=== PATIENT | female | born 1940 | race Caucasian/White ===

== ENCOUNTER 2017-06-22 17:07 | Emergency (ER) | payer MEDICARE, OTHER, SELFPAY ==
[2017-06-22] VITALS (7 sets, daily range): BP systolic 156–164; BP diastolic 77–131; PULSE 71–98; RESP 18–24; TEMP 37.1; O2SAT 92–96; BMI 45.3
--- NOTE | 2017-06-22 17:54 | EKG12_ITS ---
Test Reason : SOB Blood Pressure : / mmHG Vent. Rate : 080 BPM Atrial Rate : 080 BPM P-R Int : 186 ms QRS Dur : 162 ms QT Int : 464 ms P-R-T Axes : 077 -35 107 degrees QTc Int : 535 ms Sinus rhythm with occasional Premature ventricular complexes Left axis deviation Left bundle branch block Abnormal ECG Confirmed by VICTOR MANUEL BILLINGS ([id number]), news assignment editor MARCELINO WILLETT ([id number]) on 06/26/2017 3:59:58 PM Referred By: DELLA Confirmed By:VICTOR MANUEL BILLINGS
[2017-06-22] MEDS: Ipratropium/Albuterol Sulfate 3 ML AMPUL.NEB INHALATION (18:05)
[2017-06-22] MEDS: Albuterol 2.5 MG/3 ML VIAL.NEB. INHALATION ×3 (18:05)
--- NOTE | 2017-06-22 18:35 | ED.DCSUM_ITS ---
- ER Visit Summary Date of Service: 06/22/17 Chief Complaint: COPD History of Present Illness: The patient is a 77 F with a history of COPD presenting with wheezing and cough for the past week. She saw her primary care physician and was prescribed Zithromax last week. She completed the last pill today. She is still coughing and having wheezing. She improved somewhat with her nebulizers but it has not completely resolved. She denies chest pain or lower extremity pain/swelling. Denies recent travel or immobilization. She has not been on steroids recently and has not been hospitalized recently. She denies chest pain or diaphoresis. Physical Examination: Vitals are within normal limits. Her pulse ox is 93 on room air. She does have diffuse wheezing in all lung oliveros but is not in distress. No clinical evidence of DVT. Normal mental status and neurologic examinations. Test Results: X-rays negative for infiltrate. Labs are within normal limits. Emergency Department Course and Treatment: Given duo nebs and IV site Medrol and feels much better. Pulse ox is in the high 90s on room air. She is not requiring oxygen even with ambulation. She is not dyspneic on ambulation. She wants to go home but feels that she would benefit from prednisone at this point. I agree. I will place her on 50 mg the prednisone for 5 days and she will follow-up with her doctor on Sunday. She will return if she is any worse over the weekend. Treatment Plan: Oral prednisone Disposition: Home stable condition Impression: Initial encounter acute COPD exacerbation This note was generated with [employer] dictation software. It may contain incorrect words, spelling, and punctuation that were not noted in review of the chart prior to signing ED Disposition - Plan for ED Patient: Chief Complaint: Shortness of Breath Diagnosis: COPD (chronic obstructive pulmonary disease) Instructions: ED COPD Flare Prescriptions: Prednisone 40 mg PO DAILY 5 Days #10 tablet Referrals: Chiara Zee MD [Primary Care Provider] - As soon as possible
[2017-06-22] MEDS: MethylPREDNISolone 125 MG/2 ML Vial IV (18:46)
--- NOTE | 2017-06-22 19:00 | RAD_ITS ---
STUDY: X-RAY CHEST REASON FOR EXAM: Female, 77 years old. Cough x1 week. TECHNIQUE: PA and lateral views of the chest. COMPARISON: October 04, 2016. FINDINGS: The lungs are hyperinflated. There are stable coarse appearing interstitial markings present. No new focal consolidation is seen. Sternal cerclage wires are present from a prior sternotomy. There is a prosthetic cardiac valve in place. Normal mediastinum and ghanshyam. Normal visualized pulmonary arteries. There is atherosclerotic calcification of the aortic arch with tortuosity. There are diffuse degenerative changes of the visualized thoracic spine. Normal visualized ribs, clavicles, and shoulders. There is no demonstrated abnormality of the visualized soft tissue structures of the upper abdomen. RAD/Chest PA and Lateral IMPRESSION: No acute cardiopulmonary process. Electronically Signed: Yolis Vegas MD at 19:34 EDT Tel , Service support ,
[2017-06-22 19:22] LABS: Absolute Lymphocyte Count 4.15 X10^3/ul (0.83-4.51); Absolute Neutrophil Count 7.3 X10^3/uL (2.0-7.7); Basophil# 0.03 X10^3/uL; Basophil% 0.2 % (0-1); Eosinophil# 0.13 X10^3/uL; Hematocrit 36.7 % (37-47); Lymphocyte # 4.15 X10^3/ul (4.0); Lymphocyte % 33.4 % (19-41); Mean Corp Hgb Conc 32.7 g/gl (32-36); Mean Corpuscular Hgb 28.5 pg (27.0-32.0); Mean Corpuscular Volume 87.2 fL (81-99); Mean Platelet Vol. 9.4 fl (6.2-12.0); Monocyte# 0.84 X10^3/uL; Monocyte% 6.8 % (0-10); Neutrophil # 7.26 X10^3/uL (2.7-7.7); Neutrophil % 58.4 % (47-70); Platelet Count 205 K/mm3 (150-450); RBC Distribution Width CV 14.4 % (11.6-14.6); RBC Distribution Width SD 45.4 fl (35.1-43.9); Red Blood Count 4.21 M/mm3 (4.2-5.4); White Blood Count 12.4 K/mm3 (4.4-11.0)
[2017-06-22 19:24] LABS: Anion Gap 6 (5-15); BUN 24 mg/dL (7-18); BUN/Creat Ratio 18.9 RATIO (10-20); Calcium,Total 8.9 mg/dL (8.5-10.1); Chloride 102 mmol/L (98-107); Creatinine, Serum 1.27 mg/dL (0.55-1.02); EST Glomerular Filtration Rate 44 mL/min (>60); Est Glom Filt Rate - Afr Amer 53 mL/min (>60); Estimated Creatinine Clearance 28.88 ml/min; Glucose 155 mg/dL (74-106); Potassium 3.7 mmol/L (3.5-5.1); Sodium Level 135 mmol/L (136-145)
[2017-06-22 19:30] LABS: POSITIVE COUNT NO; POSITIVE DIFFERENTIAL NO; POSITIVE MORPHOLOGY NO
--- NOTE | 2017-06-23 15:16 | ED.RN ---
Pt daughter called to verify if mother (pt) should take prednisone which was ordered here along with atb called in from family dr. Dr Rocha verified pt just finished Z-pack and advised pt could take another atb as long as is wasn't z-pack or doxycycline as doxy would not be beneficial for pt. The daughter, Janel, verbalized understanding,.
== END 2017-06-22 20:07 | disposition home or self-care (01) ==
PROVIDERS: Emergency Provider Emergency Medicine; Family Provider Family Medicine; PCP Family Medicine
DX: J44.1 Chronic obstructive pulmonary disease with (acute) exacerbation (principal); I25.10 Atherosclerotic heart disease of native coronary artery without angina pectoris; I25.2 Old myocardial infarction; E11.9 Type 2 diabetes mellitus without complications; I10 Essential (primary) hypertension; E78.00 Pure hypercholesterolemia, unspecified; G47.33 Obstructive sleep apnea (adult) (pediatric); Z79.51 Long term (current) use of inhaled steroids; Z79.82 Long term (current) use of aspirin; Z79.4 Long term (current) use of insulin; Z79.899 Other long term (current) drug therapy
CPT/HCPCS: 71046; 80048; 85025; 93005; 94640; 96361; 96374; 99283; J7030; J7040; A4216

== ENCOUNTER → 2017-09-25 16:31 | Outpatient (CLI) | payer MEDICARE, OTHER, SELFPAY ==
[2017-09-25 17:29] LABS: Hematocrit 35.8 % (37-47); Hemoglobin 11.7 g/dl (12.0-15.0); Mean Corp Hgb Conc 32.7 g/gl (32-36); Mean Corpuscular Volume 88.6 fL (81-99); Mean Platelet Vol. 9.7 fl (6.2-12.0); Platelet Count 211 K/mm3 (150-450); RBC Distribution Width CV 13.3 % (11.6-14.6); RBC Distribution Width SD 43.1 fl (35.1-43.9); Red Blood Count 4.04 M/mm3 (4.2-5.4); White Blood Count 8.5 K/mm3 (4.4-11.0)
[2017-09-25 17:34] LABS: Scan Indicated on CBC? Y/N NO
[2017-09-25 18:00] LABS: Albumin, Serum 3.5 g/dL (3.2-5.0); BUN 27 mg/dL (7-18); BUN/Creat Ratio 22.1 RATIO (10-20); Calcium,Total 8.9 mg/dL (8.5-10.1); Chloride 100 mmol/L (98-107); Creatinine, Serum 1.22 mg/dL (0.55-1.02); EST Glomerular Filtration Rate 46 mL/min (>60); Est Glom Filt Rate - Afr Amer 55 mL/min (>60); Glucose 195 mg/dL (74-106); Phosphorus 3.6 mg/dL (2.5-4.9); Potassium 4.5 mmol/L (3.5-5.1); Sodium Level 132 mmol/L (136-145)
[2017-09-25 18:03] LABS: Protein, Urine (Random) 17.9 mg/dL (<11.9); Protein:Creat Ratio 132 mg/g CRE (0-200)
[2017-09-26 08:33] LABS: Vitamin D,25 Hydroxy 48.1 ng/mL (29.95-100.01)
[2017-09-26 08:37] LABS: PTHIN 37.7 pg/mL (18.4-80.1)
== END ==
PROVIDERS: Family Provider Family Medicine; PCP Family Medicine; Visit Provider Internal Medicine Nephrology
DX: N18.3 Chronic kidney disease, stage 3 (moderate) (principal)
CPT/HCPCS: 36415; 80069; 82306; 82570; 83970; 84156; 85027

== ENCOUNTER → 2017-10-15 15:23 | Outpatient (CLI) | payer MEDICARE, OTHER, SELFPAY | PROVIDERS: Family Provider Family Medicine; PCP Family Medicine; Visit Provider Family Medicine | DX: S39.012A Strain of muscle, fascia and tendon of lower back, initial encounter (principal) | CPT/HCPCS: 72110 ==

== ENCOUNTER → 2017-10-25 18:36 | Outpatient (CLI) | payer MEDICARE, OTHER, SELFPAY | PROVIDERS: Family Provider Family Medicine; PCP Family Medicine; Visit Provider Nurse Practitioner Adult Health | DX: N30.21 Other chronic cystitis with hematuria (principal) | CPT/HCPCS: 87086; 87088; 87186 ==

== ENCOUNTER → 2017-12-20 16:12 | Outpatient (CLI) | payer MEDICARE, OTHER, SELFPAY | PROVIDERS: Family Provider Family Medicine; PCP Family Medicine; Referring Provider Nurse Practitioner Adult Health; Visit Provider Nurse Practitioner Adult Health | DX: R35.0 Frequency of micturition (principal) | CPT/HCPCS: 87086; 87088; 87186 ==

== ENCOUNTER 2018-03-12 12:59 | Outpatient (RCR) | payer MEDICARE, OTHER, SELFPAY ==
[2018-03-06 14:43] VITALS: BMI 44.0
--- NOTE | 2018-03-12 13:46 | HP.PTEVAL ---
Patient's Visit Information SARAH HEATH is a 78 year old F referred to Physical Therapy by Chiara Zee MD with a diagnosis of Gait Disturbance and Leg Weakness. Date of Evaluation: 03/12/18 Physical Therapist: Kathryn Diehl DPT - Visit Plan Frequency: 2x /Week Duration: 4 Weeks Plan: Focus on LE strength with improved balance and functional mobility. - Subjective Findings: Patient is starting to feel like she needs help- she needs to be able to walk. Patient reports that she has felt like this for a few months and has had a few minor falls. Has a stool that she uses in the kitchen that she uses to sit on but the kids took it away from her. Lives alone in the [facility]- has a loft that she does not use- just for storage-No stairs to get in. Has a tub shower- has a seat. Has help from daughter to take the trash out- started a new job and is working a lot so she has problems getting around. Goes to the store when its to cold or nasty outside. Does drive I and can go to the store when its nice outside. Does have pain in her back - more on the left side-fell on New Years- sliding out of the bed- and landed on her right ankle- but that is better now. Uses the walker outside of the home- does sometimes use a cane or walking stick inside the home. No N/T in the toes. Feels that her legs are getting weaker and she is unable to do more walking anymore. She feels that she is declining physically. Sleep- not disturbed. PMHx: COPD, DM, HTN, Heart issues Meds: see list - Objective Posture: FH, RS, Increased kyphosis. Gait: wide LUCITA with FWW- slow lia and was given verbal cues to maneuver walker. Balance: standing feet together: no LOB eyes closed: LOB required UE A from table and righting from PT, Tandem stance- can obtain with UE A but does not maintain. HR/TR: able in sitting. ROM: WFL. Strength: Ankle: 4+/5, Knee: 4+/5, Hip: 4-/5 throughout Core: poor. Special Test: sit to stand: 6 in 30 seconds with significant UE A. 6 sit to stands - Goals Goal 1:: Patient will be I with HEP and progression Goal Time Frame: 6-8 Weeks Goal 2:: Patient will ambulate >300 feet with a normalized gait pattern with LRD and no rest breaks. Goal Time Frame: 4-6 Weeks Goal 3:: Patient will perform 10 sit to stands in 30 seconds with mild UE A Goal Time Frame: 4-6 Weeks Goal 4:: Patient will improve strength to 4/5 throughout LE Goal Time Frame: 4-6 Weeks - Rehabilitation Potential Physical Therapy Diagnosis: Patient persents with hypomobility- she has decreased strength and muscular endurance leading to abnormal gait, decreased balance and inability to perform ADL's. Rehabilitation Potential: Fair - Anticipated Interventions Patient/Client Instruction: Educate patient on: Benefits of Fitness Program Therapeutic Exercise to Include: Strength training, Endurance training, Balance training, Agility training, Body mechanics, Postural training, Flexibilty training, Gait and locomotor training, Dynamic Lumbar Stabilization For the Purpose of:: To improve muscle performance and motor function Thank you for the opportunity to evaluate your patient. For Medicare and Medicare HMO plans, please review the plan of care and approve it. It will need to be FAXED BACK to us at [phone] for Medicare purposes. For Medicare only, by signing this I certify the plan of care. Please let me know if there are questions or concerns regarding this plan of care. Physician Signature: Date:
--- NOTE | 2018-05-30 07:57 | HP.PT.NRP ---
HP - Discharge Summary (1) - Patient Information SARAH HEATH was seen in my office for initial evaluation on 03/12/18. The following Plan of Care was established for this patient: Initial Frequency: 2x /Week Initial Duration: 4 Weeks - Anticipated Interventions Patient/Client Instruction: Educate patient on: Benefits of Fitness Program Therapeutic Exercise to Include: Strength training, Endurance training, Balance training, Agility training, Body mechanics, Postural training, Flexibilty training, Gait and locomotor training, Dynamic Lumbar Stabilization For the Purpose of:: To improve muscle performance and motor function This patient was last seen in our office . Pertinent comments regarding their Physical therapy will appear below: Patient has not attended PT in over 60 days- is appropriate for d/c and return to MD for further evaluation At this point I will be discontinuing this patient from physical therapy. I would be happy to see this patient again in the future if found appropriate by the physician. Thank you! Kathryn Diehl DPT
== END 2018-03-12 19:00 | disposition home or self-care (01) ==
LOC: PT 12:59
PROVIDERS: Family Provider Family Medicine; PCP Family Medicine; Referring Provider Family Medicine; Visit Provider Family Medicine
DX: R26.89 Other abnormalities of gait and mobility (principal); R29.898 Other symptoms and signs involving the musculoskeletal system
CPT/HCPCS: 97162

== ENCOUNTER → 2018-03-21 06:43 | Outpatient (CLI) | payer MEDICARE, OTHER, SELFPAY ==
[2018-03-06 14:43] VITALS: BMI 44.0
--- NOTE | 2018-03-21 06:47 | ECHOCS_ITS ---
Reason For Study: DYSPNEA/SOB Procedure This was a 2D Doppler, Color Flow transthoracic echocardiogram. The study was technically difficult. Contrast injection was performed. Exam performed in department. Left Ventricle Normal LV size. Segmental dysfunction with preserved ejection fraction (see wall motion). The estimated ejection fraction is 55 %. Septal motion consistent with IVCD. There is evidence of diastolic dysfunction. Infero-Basal: Hypokinetic. Mid-Inferior: Hypokinetic. Mid-inferoseptal : Hypokinetic. Mid-anteroseptal : Hypokinetic. Right Ventricle Normal RV size. Normal systolic function. Atria The left atrium is moderately enlarged. Normal right atrium. No doppler evidence for ASD. Mitral Valve There is moderate mitral annular calcification. Extension of the mitral annular calcification onto the mitral valve leaflets. Mild (1+) mitral valve insufficiency. Tricuspid Valve Normal tricuspid valve. Mild tricuspid valve insufficiency. Right ventricular systolic pressure estimated to be 45 mmHg. Aortic Valve Stable appearing bioprosthetic aortic valve apparatus. Pulmonic Valve The pulmonic valve is not well visualized. Great Vessels Normal sized aortic root. Pericardium/Pleural No pericardial effusion. Medication Diluted definity 5ml given slow IV push to enhance endocardial definition. MMode/2D Measurements & Calculations LVIDd: 4.7 cm IVSd: 1.3 cm LVOT diam: 2.0 cm LVIDs: 3.1 cm LVPWd: 1.2 cm RVDd: 3.0 cm FS: 34.4 % LVOT area: 3.0 cm2 Ao root diam: 3.3 cm LAV(MOD-bp): 60.7 ml LVAd ap4: 29.8 cm2 LAV(MOD-bp) Indexed: 30.1 ml/m2 EDV(MOD-sp4): 101.5 ml LAV(MOD-sp2): 71.4 ml EDV(sp4-el): 103.7 ml LAV(MOD-sp4): 49.6 ml LVAs ap4: 18.6 cm2 ESV(MOD-sp4): 46.3 ml ESV(sp4-el): 46.4 ml EF(MOD-sp4): 54.4 % EF(sp4-el): 55.3 % SV(MOD-sp4): 55.2 ml SV(sp4-el): 57.3 ml LA A4 area: 18.9 cm2 LA dimension(2D): 4.5 cm RA A4 area: 11.2 cm2 Time Measurements MV dec time: 0.29 sec Doppler Measurements & Calculations MV E max alfred: 141.7 cm/sec Lat Peak E' Alfred: 7.4 cm/sec Med Peak E' Alfred: 4.1 cm/sec MV A max alfred: 177.1 cm/sec E/E' lat: 19.2 E/E' med: 34.3 MV E/A: 0.80 MV V2 max: 189.8 cm/sec MV P1/2t max alfred: 142.6 cm/sec Ao V2 max: 220.0 cm/sec MV max P.4 mmHg MV P1/2t: 104.5 msec Ao max P.4 mmHg MV V2 mean: 125.8 cm/sec MV dec slope: 399.4 cm/sec2 Ao V2 mean: 167.5 cm/sec MV mean P.9 mmHg MVA(P1/2t): 2.1 cm2 Ao mean P.3 mmHg MV V2 VTI: 59.3 cm Ao V2 VTI: 54.1 cm MVA(VTI): 1.3 cm2 KARLENE(I,D): 1.5 cm2 KARLENE(V,D): 1.4 cm2 LV V1 max: 103.5 cm/sec SV(LVOT): 79.4 ml PA V2 max: 137.5 cm/sec LV V1 max P.3 mmHg LV V1 mean P.7 mmHg LV V1 mean: 78.5 cm/sec LV V1 VTI: 26.3 cm TR max alfred: 325.5 cm/sec MV P1/2t-pr_phl: 103.3 msec TR max P.4 mmHg Interpretation Summary The study was technically difficult. Contrast injection was performed. Segmental dysfunction with preserved ejection fraction (see wall motion). The estimated ejection fraction is 55 %. Septal motion consistent with IVCD. The left atrium is moderately enlarged. There is moderate mitral annular calcification. Extension of the mitral annular calcification onto the mitral valve leaflets. Mild (1+) mitral valve insufficiency. Mild tricuspid valve insufficiency. Stable appearing bioprosthetic aortic valve apparatus. Right ventricular systolic pressure estimated to be 45 mmHg. There is evidence of diastolic dysfunction. Ordering Physician: Emanuel Vela Referring Physician: BLANKA CROTEZ Performed By: Ada Walker RDCS
--- NOTE | 2018-03-21 19:41 | STRESSREP_ITS ---
Stress Test Report Date: 03/21/2018 Procedure: Pharmacologic stress nuclear imaging study Indications: Shortness of breath/dyspnea; CAD; CAD; status post transcatheter aortic valve replacement: abnormal ECG; left bundle branch block pattern Consent: Per the patient Procedure: The patient underwent pharmacologic (Regadenoson) evaluation with a peak heart rate of 83 beats per minute (57 predicted maximal heart rate) and a peak blood pressure of 172/70 mmHg. The baseline ECG demonstrated Sinus rhythm with a left bundle branch block pattern . The peak pharmacologic ECG demonstrated a continued left bundle bundle branch block pattern with no obvious ECG changes . There were no cardiac dysrhythmias pretest, during pharmacologic infusion, or recovery. There was no complaint of chest discomfort during pharmacologic infusion or recovery. The examination was discontinued secondary to completion of protocol. Impression: 1. Pharmacologic (Regadenoson) evaluation 2. Peak pharmacologic ECG with A continued left bundle branch block pattern with no obvious ECG changes . 3. There were no cardiac dysrhythmias pretest, during pharmacologic infusion, or recovery. 4. Nuclear images pending Myocardial perfusion imaging study: Technique: The patient was injected with 14.5 millicuries of technetium 99m Cardiolite and subsequently rest SPECT Cardiolite nuclear imaging was obtained in the horizontal long, vertical long, and short axis views. The patient underwent pharmacologic (Regadenoson) evaluation with a peak heart rate of 83 beats per minute (57 % percent predicted maximal heart rate) and a peak blood pressure of 172/70 mmHg. The patient was injected with 44.8 millicuries of technetium 99m Cardiolite and subsequently stress SPECT Cardiolite nuclear imaging was obtained in the horizontal long, vertical long, and short axis views. A gated Cardiolite study at peak stress was obtained. Interpretation: Rest and stress SPECT Cardiolite nuclear imaging status post realignment, normalization, and attenuation correction demonstrate At rest the appearance of extra cardiac/gastrointestinal tracer uptake near the inferior segments as well as an area of diminished tracer uptake in the distal inferior/inferoapical segments. Status post stress there is notation of continued diminished tracer uptake in portions of the distal inferior/inferoapical segments without significant change as well as an area of subtle diminished tracer uptake in the mid anterior segments. . There is end systolic thickening and brightening. The gated Cardiolite study demonstrates myocardial thickening and inward wall motion. The reported LVEF is 53 %. Impression: 1. Rest and stress SPECT cardiac nuclear imaging demonstrate myocardial perfusion changes potentially compatible with an area of soft tissue attenuation/artifact and/or the effects of gastrointestinal tracer uptake subtraction although an area of previous myocardial injury/infarction involving portions of the distal inferior and inferoapical segments cannot necessarily be excluded, as well as, an area of subtle diminished tracer uptake in the mid anterior segments which may be compatible shifting soft tissue attenuation/artifact although an area of stress induced myocardial ischemia cannot necessarily be excluded. . 2. The gated Cardiolite study reports an LVEF of 53 %. This note was generated with [employer] software. It may contain incorrect words, spelling, and punctuation that were not noted in checking the note before signing.
== END ==
PROVIDERS: Family Provider Family Medicine; PCP Family Medicine; Referring Provider Internal Medicine Cardiovascular Disease; Visit Provider Internal Medicine Cardiovascular Disease
DX: I25.810 Atherosclerosis of coronary artery bypass graft(s) without angina pectoris (principal); Z95.1 Presence of aortocoronary bypass graft
CPT/HCPCS: 78452; 93017; 93306; A9500; Q9957; A4216; C8929; J2785

== ENCOUNTER → 2018-03-26 15:07 | Outpatient (CLI) | payer MEDICARE, OTHER, SELFPAY ==
[2018-03-06 14:43] VITALS: BMI 44.0
[2018-03-26 16:38] LABS: Anion Gap 11 (5-15); BUN 16 mg/dL (7-18); BUN/Creat Ratio 14.4 RATIO (10-20); Calcium,Total 9.1 mg/dL (8.5-10.1); Chloride 101 mmol/L (98-107); Creatinine, Serum 1.11 mg/dL (0.55-1.02); EST Glomerular Filtration Rate 51 mL/min (>60); Est Glom Filt Rate - Afr Amer 61 mL/min (>60); Glucose 176 mg/dL (74-106); Sodium Level 137 mmol/L (136-145)
== END ==
PROVIDERS: Family Provider Family Medicine; PCP Family Medicine; Referring Provider Internal Medicine Cardiovascular Disease; Visit Provider Internal Medicine Cardiovascular Disease
DX: I25.810 Atherosclerosis of coronary artery bypass graft(s) without angina pectoris (principal); R06.00 Dyspnea, unspecified; Z95.1 Presence of aortocoronary bypass graft; Z95.2 Presence of prosthetic heart valve; Z95.4 Presence of other heart-valve replacement
CPT/HCPCS: 36415; 80048

== ENCOUNTER → 2018-04-23 13:18 | Outpatient (CLI) | payer MEDICARE, OTHER, SELFPAY ==
[2018-03-06 14:43] VITALS: BMI 44.0
--- NOTE | 2018-04-23 13:20 | STEWCON_ITS ---
Reason For Study: DYSPNEA/SOB Stress Results Protocol: Dobutamine Stress Echocardiogram Maximum Predicted HR: 144 bpm Target HR: 122 bpm % Maximum Predicted HR: 109 % DurationHeart Rate Stage (mm:ss) (bpm) BP Comment BASELINE 65 176/91DILUTED DEFINITY 5 ML USED DURING STRESS DSE- 10 MCG 6:30 157 126/75 RECOVERY 85 185/63ADVISED TO TAKE BP MEDS WHEN GOES HOME Stress Duration: 6:30 mm:ss Maximum Stress HR: 157 bpm Baseline Echocardiogram Findings Stress Echo Wall motion Data Resting WM Intermediate WM Stress WM Resting Wall Motion Wall Motion Int. Wall Motion Stress All segments Normal. All segments Hyperkinetic. All segments Hyperkinetic. Ejection Fraction 55 %. Ejection Fraction 60 %. Ejection Fraction 65 %. Stress Results Arrhythmias: Occasional PACs / repetative PACs during infusion and recovery and occasional PVCs during recovery Stopped secondary to: Target heart rate achieved. EKG Data Baseline ECG: NSR; LBBB. Peak pharmacologic ECG: no obvious ECG changes. Symptoms with Stress No c/o chest discomfort during pharmacologic infusion / recovery. Interpretation Summary Technically difficult study Contrast injection performed Negative (adequate) Dobutamine Stress Echocardiogram Comment: Dobutamine stress echocardiogram results based upon viewing and interpreting both 2D echocardiographic images during live acquisition as well as digital frame grabbed images. Ordering Physician: Dane^Emanuel^^^ Referring Physician: Emanuel Vela Performed By: Ada Walker, JONI
== END ==
PROVIDERS: Family Provider Family Medicine; PCP Family Medicine; Referring Provider Internal Medicine Cardiovascular Disease; Visit Provider Internal Medicine Cardiovascular Disease
DX: I25.810 Atherosclerosis of coronary artery bypass graft(s) without angina pectoris (principal); I44.7 Left bundle-branch block, unspecified; Z95.1 Presence of aortocoronary bypass graft; Z95.2 Presence of prosthetic heart valve
CPT/HCPCS: 93017; 93350; J7040; Q9957; A4216; C8928

== ENCOUNTER → 2018-09-26 | Outpatient (CLI) | payer MEDICARE, OTHER, SELFPAY ==
[2018-09-26 13:16] VITALS: BMI 43.6
[2018-09-26 15:09] LABS: Hematocrit 36.2 % (37-47); Mean Corp Hgb Conc 33.1 g/dL (32-36); Mean Corpuscular Hgb 29.4 pg (27.0-32.0); Mean Corpuscular Volume 88.7 fL (81-99); Mean Platelet Vol. 9.6 fl (6.2-12.0); Platelet Count 246 K/mm3 (150-450); RBC Distribution Width CV 14.1 % (11.6-14.6); RBC Distribution Width SD 45.1 fl (35.1-43.9); Red Blood Count 4.08 M/mm3 (4.2-5.4); White Blood Count 11.1 K/mm3 (4.4-11.0)
[2018-09-26 15:29] LABS: Albumin, Serum 3.8 g/dL (3.2-5.0); BUN 22 mg/dL (7-18); BUN/Creat Ratio 20.8 RATIO (10-20); Calcium,Total 9.6 mg/dL (8.5-10.1); Chloride 96 mmol/L (98-107); Creatinine, Serum 1.06 mg/dL (0.55-1.02); EST Glomerular Filtration Rate 54 mL/min (>60); Est Glom Filt Rate - Afr Amer 65 mL/min (>60); Glucose 81 mg/dL (74-106); Phosphorus 4.2 mg/dL (2.5-4.9); Potassium 4.3 mmol/L (3.5-5.1); Sodium Level 130 mmol/L (136-145)
[2018-09-26 18:01] LABS: Protein, Urine (Random) 8.6 mg/dL (<11.9); Protein:Creat Ratio 369 mg/g CRE (0-200)
[2018-09-27 09:58] LABS: PTHIN 45.1 pg/mL (18.4-80.1)
== END | disposition home or self-care (01) ==
LOC: LAB 14:30
PROVIDERS: Family Provider Family Medicine; PCP Family Medicine; Referring Provider Internal Medicine Nephrology; Visit Provider Internal Medicine Nephrology
DX: N18.3 Chronic kidney disease, stage 3 (moderate) (principal)
CPT/HCPCS: 36415; 80069; 82306; 82570; 83970; 84156; 85027

== ENCOUNTER → 2018-10-02 12:37 | Outpatient (CLI) | payer MEDICARE, OTHER, SELFPAY ==
[2018-09-26 13:16] VITALS: BMI 43.6
[2018-10-02 13:44] LABS: Color, Urine Yellow (Yellow); Glucose, Dipstick Normal (Normal); Ketone-Dipstick Negative (Negative); Leukocyte Esterase-Dipstick 500 /ul (Negative); Nitrite-Dipstick Negative (Negative); Occult Blood-Urine Negative /ul (Negative); Protein-Dipstick Negative (Negative); Urine Bilirubin Dipstick Negative (Negative); Urine Clarity Sl. Cloudy (Clear); Urine Urobilinogen Normal (Normal); Urine pH 6.5 (5.0 - 8.0)
== END ==
PROVIDERS: Family Provider Family Medicine; PCP Family Medicine; Referring Provider Internal Medicine Nephrology; Visit Provider Internal Medicine Nephrology
DX: N39.0 Urinary tract infection, site not specified (principal)
CPT/HCPCS: 81002; 87086; 87088; 87186

== ENCOUNTER → 2018-10-08 14:13 | Outpatient (CLI) | payer MEDICARE, OTHER, SELFPAY ==
[2018-09-26 13:16] VITALS: BMI 43.6
--- NOTE | 2018-10-08 14:15 | US_ITS ---
STUDY: RENAL ULTRASOUND - COMPLETE REASON FOR EXAM: Female, 78 years old. Stage III chronic kidney disease. Left nephrectomy. TECHNIQUE: Ultrasound evaluation of the kidneys was performed with real-time and static astorga-scale imaging. COMPARISON: July 19, 2016. FINDINGS: RIGHT KIDNEY: Normal location of the right kidney, which is normal in size. The right kidney measures 11.7 cm. There is a normal cortex of the right kidney. The renal cortex measures 1.5 cm. There is no right renal mass or cyst. There are no right renal calculi. There is no right hydronephrosis. DISTAL RIGHT URETER: There is non-visualization of the distal right ureter. There is no demonstrated right ureterovesical junction calculus. There is no demonstrated right ureteral jet. LEFT KIDNEY: Surgically absent. DISTAL LEFT URETER: There is non-visualization of the distal left ureter. There is no demonstrated left ureterovesical junction calculus. There is no demonstrated left ureteral jet. BLADDER: The distended urinary bladder has a volume of 371 ml. There is a normal wall thickness of the distended urinary bladder. There is no demonstrated mass within the urinary bladder. There are no demonstrated bladder calculi. US/Kidney and Bladder IMPRESSION: Normal ultrasound of the right kidney and urinary bladder. Electronically Signed: Jasvir Curtis DO at 21:40 EDT Tel [phone], Service support ,
== END ==
PROVIDERS: Family Provider Family Medicine; PCP Family Medicine; Referring Provider Internal Medicine Nephrology; Visit Provider Internal Medicine Nephrology
DX: N18.3 Chronic kidney disease, stage 3 (moderate) (principal)
CPT/HCPCS: 76770

== ENCOUNTER → 2019-09-25 | Outpatient (CLI) | payer MEDICARE, OTHER, SELFPAY ==
[2019-04-08 14:17] VITALS: BMI 43.4
[2019-09-25 16:00] LABS: Hematocrit 34.8 % (37-47); Hemoglobin 11.3 g/dL (12.0-15.0); Mean Corp Hgb Conc 32.5 g/dL (32-36); Mean Corpuscular Hgb 28.2 pg (27.0-32.0); Mean Corpuscular Volume 86.8 fL (81-99); Mean Platelet Vol. 9.7 fl (6.2-12.0); Platelet Count 259 K/mm3 (150-450); RBC Distribution Width CV 14.8 % (11.6-14.6); RBC Distribution Width SD 47.1 fl (35.1-43.9); Red Blood Count 4.01 M/mm3 (4.2-5.4); White Blood Count 9.8 K/mm3 (4.4-11.0)
[2019-09-25 16:41] LABS: Protein, Urine (Random) 9.9 mg/dL (<11.9); Protein:Creat Ratio 284 mg/g CRE (0-200)
[2019-09-25 16:42] LABS: Albumin, Serum 3.5 g/dL (3.2-5.0); BUN 18 mg/dL (7-18); Calcium,Total 8.9 mg/dL (8.5-10.1); Chloride 103 mmol/L (98-107); EST Glomerular Filtration Rate 57 mL/min (>60); Est Glom Filt Rate - Afr Amer 69 mL/min (>60); Glucose 95 mg/dL (74-106); Phosphorus 3.8 mg/dL (2.5-4.9); Potassium 4.4 mmol/L (3.5-5.1); Sodium Level 134 mmol/L (136-145)
[2019-09-25 16:44] LABS: Vitamin D,25 Hydroxy 83.1 ng/mL
== END | disposition home or self-care (01) ==
LOC: LAB 15:14
PROVIDERS: PCP Family Medicine; Referring Provider Internal Medicine Nephrology; Visit Provider Internal Medicine Nephrology
DX: N18.3 Chronic kidney disease, stage 3 (moderate) (principal)
CPT/HCPCS: 36415; 80069; 82306; 82570; 83970; 84156; 85027

== ENCOUNTER → 2019-10-09 | Outpatient (CLI) | payer MEDICARE, OTHER, SELFPAY ==
[2018-11-22 14:00] VITALS: BMI 43.6
[2019-04-08 14:17] VITALS: BMI 43.4
--- NOTE | 2019-10-10 10:20 | PFT ---
INTRODUCTION: The patient is a 79-year-old female that presents for pulmonary function studies secondary to a diagnosis of COPD. Respiratory therapy reports good patient effort. Bronchodilators were used during testing. INTERPRETATION: Forced expiration spirometry demonstrates no evidence of a large airways obstructive ventilatory defect. There was a significant response to aerosolized bronchodilators, based upon change noted in FVC. Spirograms are of good quality and plateau normally. Body plethysmography was performed and reveals a decreased TLC to 3.5 L, 81% of predicted, indicative of a mild restrictive ventilatory impairment. Diffusing capacity by single breath CO is reduced at 40% of predicted. IMPRESSION: Mild restrictive ventilatory impairment with disproportionate reduction in diffusing capacity. A significant bronchodilator response was noted.
== END | disposition home or self-care (01) ==
LOC: PSN 13:21
PROVIDERS: Family Provider Family Medicine; PCP Family Medicine; Referring Provider Nurse Practitioner Acute Care; Visit Provider Nurse Practitioner Acute Care
DX: J44.9 Chronic obstructive pulmonary disease, unspecified (principal)
CPT/HCPCS: 94060; 94726; 94729

== ENCOUNTER → 2019-10-15 | Outpatient (CLI) | payer MEDICARE, OTHER, SELFPAY ==
[2018-11-22 14:00] VITALS: BMI 43.6
[2019-04-08 14:17] VITALS: BMI 43.4
[2019-10-15 13:45] VITALS: PULSE 67; PULSE 70; PULSE 73; PULSE 76; PULSE 79; PULSE 84; PULSE 86; O2SAT 84; O2SAT 89; O2SAT 91; O2SAT 92; O2SAT 96
--- NOTE | 2019-10-15 13:47 | CPS ---
Patient started testing on room air. SpO2 84% right before the 2nd minute. Placed patient on 2 lpm O2, SpO2 recovered to 94%. Patient walked the rest of the test with 2 lpm O2.
--- NOTE | 2019-10-16 06:47 | PCM.PSN.6M ---
PSN 6 Minute Walk Test - 6 Minute Walk Test 6 Minute Walk Test: 6 Minute Walk Test PSN:6-Minute Walk Test Start: 10/15/19 13:45 Freq: Status: Active Protocol: RESP.6MINW Document 10/15/19 13:45 MARI (Rec: 10/15/19 13:48 MARI [id number]) 6 Minute Walk Test Date Performed 10/15/19 Time Performed 13:30 Height 5 ft 1 in Weight: 104.326 kg Weight in Pounds 230.[address]: David Banegas Assistive device used: Walker Pre-test Oxygen Delivery Method Room Air Pulse Ox (%) 92 Pulse Rate (60-100 beats/min) 67 Dyspnea Shanique Scale (0-10) 0 Exertion Shanique Scale (6-20) 6 1st minute Oxygen Delivery Method Room Air Pulse Ox (%) 91 Pulse Rate (60-100 beats/min) 70 2nd minute Oxygen Delivery Method Room Air Pulse Ox (%) 84 Pulse Rate (60-100 beats/min) 73 3rd minute Oxygen Flow Rate (L/min) (L/min) 2 Oxygen Delivery Method Nasal Cannula Pulse Ox (%) 91 Pulse Rate (60-100 beats/min) 73 4th minute Oxygen Flow Rate (L/min) (L/min) 2 Oxygen Delivery Method Nasal Cannula Pulse Ox (%) 89 Pulse Rate (60-100 beats/min) 79 5th minute Oxygen Flow Rate (L/min) (L/min) 2 Oxygen Delivery Method Nasal Cannula Pulse Ox (%) 91 Pulse Rate (60-100 beats/min) 84 6th minute Oxygen Flow Rate (L/min) (L/min) 2 Oxygen Delivery Method Nasal Cannula Pulse Ox (%) 91 Pulse Rate (60-100 beats/min) 86 Dyspnea Shanique Scale (0-10) 4 Exertion Shanique Scale (6-20) 14 Post-test Oxygen Flow Rate (L/min) (L/min) 2 Oxygen Delivery Method Nasal Cannula Pulse Ox (%) 96 Pulse Rate (60-100 beats/min) 76 Full Laps Walked 8 Partial Lap, Number of Tiles Walked 10 Total Distance Walked (ft) 482 10/15/19 13:47 Cardiopulmonary Services by Carmelina Moreno Patient started testing on room air. SpO2 84% right before the 2nd minute. Placed patient on 2 lpm O2, SpO2 recovered to 94%. Patient walked the rest of the test with 2 lpm O2. Initialized on 10/15/19 13:47 - END OF NOTE - Interpretation Interpretation: The patient was noted to be 92% on room air. The patient then started walking with the assistance of a walker and desaturated to 84% in the second minute. Patient was placed on 2 L nasal cannula with improvement to 94%. The patient was able to finish ambulation through the 6 minutes on 2 L. In total, the patient traveled 482 feet over the course of 6 minutes on room air with the assistance of a walker and one break. These findings are consistent with a respiratory limitation exercise tolerance. No significant tachycardia was noted. - Recommendations Recommendations: Patient requires no supplemental oxygen at rest, but should be using 2 L nasal cannula with any exertion.
== END | disposition home or self-care (01) ==
LOC: PSN 13:12
PROVIDERS: Family Provider Family Medicine; PCP Family Medicine; Referring Provider Nurse Practitioner Acute Care; Visit Provider Nurse Practitioner Acute Care
DX: J44.9 Chronic obstructive pulmonary disease, unspecified (principal)
CPT/HCPCS: 94618

== ENCOUNTER → 2019-10-17 | Outpatient (CLI) | payer MEDICARE, OTHER, SELFPAY ==
[2019-04-08 14:17] VITALS: BMI 43.4
[2019-10-17 17:28] LABS: Absolute Lymphocyte Count 1.34 X10^3/uL (0.83-4.51); Absolute Neutrophil Count 5.4 X10^3/uL (2.0-7.7); Basophil# 0.06 X10^3/uL; Basophil% 0.8 % (0-1); Eosinophil# 0.03 X10^3/uL; Eosinophils% 0.4 % (0-5); Hematocrit 34.6 % (37-47); Hemoglobin 10.8 g/dL (12.0-15.0); Lymphocyte # 1.34 X10^3/ul (4.0); Lymphocyte % 17.6 % (19-41); Mean Corp Hgb Conc 31.2 g/dL (32-36); Mean Corpuscular Hgb 27.9 pg (27.0-32.0); Mean Corpuscular Volume 89.4 fL (81-99); Mean Platelet Vol. 9.7 fl (6.2-12.0); Monocyte# 0.74 X10^3/uL; Monocyte% 9.7 % (0-10); NRBC Flagged by Analyzer 0 % (0-5); Neutrophil # 5.44 X10^3/uL (2.7-7.7); Neutrophil % 71.2 % (47-70); Platelet Count 248 K/mm3 (150-450); RBC Distribution Width CV 14.8 % (11.6-14.6); RBC Distribution Width SD 47.9 fl (35.1-43.9); Red Blood Count 3.87 M/mm3 (4.2-5.4); White Blood Count 7.6 K/mm3 (4.4-11.0)
[2019-10-17 18:01] LABS: Thyroid Stim Hormone (TSH) 3.79 uIU/mL (0.358-3.74)
== END | disposition home or self-care (01) ==
LOC: MFPLAB 15:52
PROVIDERS: PCP Family Medicine; Referring Provider Family Medicine; Visit Provider Family Medicine
DX: R60.9 Edema, unspecified (principal)
CPT/HCPCS: 36415; 84443; 85025

== ENCOUNTER 2020-02-26 14:28 | Inpatient (IN) | payer MEDICARE, OTHER, SELFPAY ==
[2020-02-23 14:33] VITALS: BMI 44.4
[2020-02-26] VITALS (16 sets, daily range): BP systolic 144–193; BP diastolic 66–96; PULSE 75–97; RESP 17–26; TEMP 36.6–37.2; O2SAT 96–99; BMI 44.9; BMI 42.2
--- NOTE | 2020-02-26 15:01 | ED.DCSUM_ITS ---
- ER Visit Summary Date of Service: 02/26/20 Chief Complaint: Shortness of breath History of Present Illness: The patient is a [address] Zee and Dr. Banegas. She reports she has shortness of breath that began approximately 1 month ago. Severe at worst mild currently. Is worsened by exertion or laying flat. She reports that she slept with 3 pillows last night. She is used her oxygen albuterol with minimal relief. Patient reports that she has a cough that is occasionally productive of beige sputum without blood. She denies any fever, chills, chest pain. She denies any sick contacts. She does wear a mask. Patient reports that she saw the nurse practitioner for Dr. Banegas 2 days ago and was prescribed prednisone. She took her first dose today. She has not started the doxycycline or Tessalon Perles yet. Physical Examination: Vitals: 98.0, 193/96, 80, 24, 97% on 2 L nasal cannula which is her home O2. General: Well-nourished and well-developed. Head: Normocephalic atraumatic. Neck: Supple, no lymphadenopathy. No JVD. Nontender. Cardiovascular: Regular rate and rhythm. 2 out of 6 systolic murmur. Respiratory: No respiratory distress. Clear to auscultation bilaterally. Abdominal: Soft, nontender, nondistended, normal bowel sounds. No guarding, r ebound, or peritoneal signs. Back: Nontender. Extremities: Nontender, no edema. Skin: Normal color, no rash. Neurologic: Alert and oriented ?3. Cranial nerves II through XII are intact. Normal strength and sensation. Psych: Anxious. Test Results: EKG is sinus at 78 with a left bundle branch block. Is unchanged from 2018. Initial troponin 0 0.213. Lactic acid is 1.5. COVID-19 rapid antigen is negative. Chem-7 shows a sodium 133 and glucose 140. CBC shows a white count of 13.4 (took a dose of prednisone this morning), H&H 10.4 and 31.5, second neutrophils 89, lymphocytes of 6. Chest x-ray shows CHF in my opinion. The radiologist did not read this yet. Emergency Department Course and Treatment: Patient does not have any wheezing type at this time and does not appear to be in respiratory distress. She was placed on the mount monitor and is resting comfortably. Ambulatory pulse ox on 2 L nasal cannula was 88%. Patient complains of anxiety and was given her home dose of Xanax p.o. She was given aspirin p.o. and Lasix IV. She is resting more comfortably. Treatment Plan: Patient will be discussed with the hospitalist and admitted for further evaluation and treatment. Disposition: Admitted in improved condition. Impression: 1. CHF. 2. Indeterminate troponin. 3. Left bundle branch block. 4. Hypoxia. 5. COPD. This note was generated with [employer] dictation software. It may contain incorrect words, spelling, and punctuation that were not noted in review of the chart prior to signing ED Disposition - Plan for ED Patient: Referrals: Chiara Zee MD [Primary Care Provider] -
[2020-02-26 15:17] LABS: Anion Gap 8 (5-15); BUN 17 mg/dL (7-18); BUN/Creat Ratio 17.7 RATIO (10-20); Calcium,Total 9.1 mg/dL (8.5-10.1); Chloride 99 mmol/L (98-107); Creatinine, Serum 0.96 mg/dL (0.55-1.02); EST Glomerular Filtration Rate 60 mL/min (>60); Est Glom Filt Rate - Afr Amer 72 mL/min (>60); Estimated Creatinine Clearance 36.44 ml/min; Glucose 140 mg/dL (74-106); Potassium 4.4 mmol/L (3.5-5.1); Sodium Level 133 mmol/L (136-145)
[2020-02-26 15:18] LABS: Absolute Lymphocyte Count 0.84 X10^3/uL (0.83-4.51); Absolute Neutrophil Count 11.9 X10^3/uL (2.0-7.7); Basophil# 0.03 X10^3/uL; Basophil% 0.2 % (0-1); Eosinophil# 0.02 X10^3/uL; Eosinophils% 0.1 % (0-5); Hematocrit 31.5 % (37-47); Hemoglobin 10.4 g/dL (12.0-15.0); Lymphocyte # 0.84 X10^3/ul (4.0); Lymphocyte % 6.3 % (19-41); Mean Corpuscular Hgb 28.6 pg (27.0-32.0); Mean Corpuscular Volume 86.5 fL (81-99); Mean Platelet Vol. 9.8 fl (6.2-12.0); Monocyte# 0.54 X10^3/uL; NRBC Flagged by Analyzer 0 % (0-5); Neutrophil # 11.91 X10^3/uL (2.7-7.7); Neutrophil % 88.9 % (47-70); Platelet Count 248 K/mm3 (150-450); RBC Distribution Width CV 14.6 % (11.6-14.6); RBC Distribution Width SD 45.9 fl (35.1-43.9); Red Blood Count 3.64 M/mm3 (4.2-5.4); White Blood Count 13.4 K/mm3 (4.4-11.0)
[2020-02-26 15:27] LABS: Lactic Acid 1.5 mmol/L (0.4-1.9)
--- NOTE | 2020-02-26 15:40 | RAD_ITS ---
STUDY: X-RAY CHEST REASON FOR EXAM: Female, 80 years old. worsening sob x 1 month. hx of COPD. TECHNIQUE: Single AP portable view of the chest. COMPARISON: 06/22/2017 FINDINGS: Status post median sternotomy. The lungs are clear and expanded. There is no demonstrated pleural abnormality. There is moderate cardiac enlargement. Normal mediastinum and ghanshyam. There is prominence of the pulmonary hilar arteries and peripheral pulmonary arteries, consistent with congestive heart failure (CHF). Normal visualized aortic arch and descending thoracic aorta. Normal visualized thoracic spine. Normal visualized ribs, clavicles, and shoulders. There is no demonstrated abnormality of the visualized soft tissue structures of the upper abdomen. RAD/Chest 1 View (Portable) IMPRESSION: Mild congestive heart failure. Electronically Signed: Alfredo Nuñez MD at 16:28 EST Tel , Service support ,
[2020-02-26] MEDS: Aspirin 81 MG TAB.CHEW 324 MG PO (16:31)
[2020-02-26] MEDS: Furosemide 40 MG/4 ML Vial IV ×2 (16:32→19:16)
--- NOTE | 2020-02-26 16:53 | NURSING ---
PCU CHF [facility]E
--- NOTE | 2020-02-26 17:05 | PCM.HP.STD ---
History of Present Illness Date of Admission: 02/26/20 Ms Henderson is a 80 year old F with a past medical history of CAD status post CABG x2 in 2002, aortic valve stenosis status post TAVR in 2016, left carotid stenosis, hypertension, HPL, DM-2, MARGIE, COPD, depression, and anxiety who presented to the emergency department at [facility] on 02/26/2020 with worsening shortness of breath. She reports that she has had worsening shortness of breath for approximately a month now but it has gotten worse recently she is unable to lie flat and has been sleeping on 3 pillows. She is using oxygen continuously now. She denies fever, chills, or sick contacts. She has been wearing a mask if she does go out. She was seen by Dr. Banegas's nurse practitioner approximately 2 days ago and was prescribed prednisone and doxycycline for possible COPD exacerbation but has not started taking the doxycycline as of yet. She took her first dose of prednisone yesterday. She states that her shortness of breath is considerably worse with exertion and she does complain of some intermittent left-sided chest pain that does not radiate and is not associated with diaphoresis nausea or vomiting. She is afebrile, her heart rate is in the 80s, she is hypertensive with systolic blood pressures in the 170s to 180s, she is tachypneic with respiratory rates in the mid 20s and she is on 3 L nasal cannula with oxygen saturation of 98%. Her baseline oxygen requirement is 2 L. She wears BiPAP 17/13 at night with an O2 bleed and is compliant with this. She follows with Dr. Vela for cardiology and was last seen in November. An echo was ordered at that time but the patient was afraid of heather coronavirus and has not obtained this yet. Her labs shows a mild white count elevation, a chronic stable anemia, mild hyponatremia with a sodium of 133, lactic acid in the normal range at 1.5, and intermediate to her troponin at 0.213 and a markedly elevated BNP at 1113.8. The patient states she has been compliant with her Lasix and watching her sodium intake. When asked what she had for [place] she states she ate ham. Her EKG shows a chronic left bundle branch block no other changes noted. Her chest x-ray is consistent with congestive heart failure Past Medical History Past Medical History (Chronic Problems): Chronic Problems (Last Reviewed 02/26/20 @ 17:[address] Zuleyka Euceda, DO) Adult BMI 40.0-44.9 kg/sq m (Chronic) Restrictive lung disease (Chronic) Left bundle-branch block, unspecified (Chronic) Atherosclerosis of coronary artery bypass graft without angina pectoris (Chronic) CABG X 2, 2002; MARGIE (obstructive sleep apnea) (Chronic) Dyspnea (Chronic) COPD (chronic obstructive pulmonary disease) (Chronic) Status post transcatheter aortic valve replacement (TAVR) using bioprosthesis (Chronic ~01/31/16) 26mm Sapian S3 Valve @ [facility] 01/31/16 Type 2 diabetes mellitus (Chronic) S/P CABG x 2 (Chronic ~2002) Esophageal abnormality (Chronic) Carotid artery disease (Chronic) S/P left carotid endarterectomy Medical History: Medical History (Last Reviewed 02/26/20 @ 17:[address] Zuleyka Euceda, DO) Left carotid artery stenosis (Acute) I65.22 Left bundle-branch block, unspecified (Chronic) I44.7 Atherosclerosis of coronary artery bypass graft without angina pectoris (Chronic) I25.810 CABG X 2, 2002; Paroxysmal supraventricular tachycardia by electrocardiogram (ECG) (Acute) I47.1 Left bundle branch block (LBBB) (Acute) I44.7 MARGIE (obstructive sleep apnea) (Chronic) G47.33 Dyspnea (Chronic) R06.00 COPD (chronic obstructive pulmonary disease) (Chronic) J44.9 Type 2 diabetes mellitus (Chronic) E11.9 Esophageal abnormality (Chronic) K22.9 Carotid artery disease (Chronic) I77.9 S/P left carotid endarterectomy Leg cramps R25.2 Depression F32.9 Essential hypertension I10 COPD exacerbation J44.1 Esophagus, rupture K22.3 History of pneumothorax Z87.09 Non-ST elevation (NSTEMI) myocardial infarction I21.4 01/11 Nonrheumatic aortic (valve) stenosis I35.0 UTI (urinary tract infection) (Resolved) N39.0 CAD (coronary artery disease) (Inactive) I25.10 Sepsis (Inactive) A41.9 Allergies Penicillins Allergy (Mild, Verified 02/26/20 14:29) unknown levofloxacin [From Levaquin] Allergy (Verified 02/26/20 14:29) Hives atorvastatin [From Lipitor] Adverse Reaction (Mild, Verified 02/26/20 14:29) Muscle pains adhesive tape Adverse Reaction (Verified 02/26/20 14:29) Itching amoxicillin [From Augmentin] Adverse Reaction (Verified 02/26/20 14:29) Diarrhea clavulanic acid [From Augmentin] Adverse Reaction (Verified 02/26/20 14:29) Diarrhea lorazepam [From Ativan] Adverse Reaction (Verified 02/26/20 14:29) Other Home Medications: Ambulatory Orders Medication Instructions Recorded ALPRAZolam [Xanax] 0.25 - 0.5 tab PO Q12H PRN PRN 02/19/16 Aspirin E.C. [Ecotrin] 81 mg PO DAILY@0800 02/19/16 Atorvastatin Calcium [Lipitor] 80 mg PO QHS 02/19/16 Insulin Aspart [Novolog Flexpen] 8 units SC BREAKFAST 02/19/16 Insulin Glargine,Hum.rec.anlog 10 unit SQ QHS 02/19/16 [Lantus] Pantoprazole Sodium [Protonix] 40 mg PO DAILY 02/19/16 cholecalciferol (vitamin D3) 125 5,000 unit PO DAILY 03/06/18 mcg (5,000 unit) capsule rynuajvb-gan-ruzex acid 0.4 1 tab PO DAILY 03/06/18 mg-lycopene 300 mcg-lutein 250 mcg tablet vitamins A,C,Y-ybgf-nhyuyh 14,320 1 cap PO DAILY cap 03/06/18 unit-226 mg-200 unit capsule albuterol sulfate 90 mcg/actuation 2 puff INHALATION Q4H PRN #18 g 11/22/18 aerosol inhaler metoprolol tartrate 25 mg tablet 25 mg PO BID #180 tab 05/08/19 fluticasone furoate 200 1 inh INHALATION DAILY #60 ea 09/12/19 mcg-vilanterol 25 mcg/dose inhalation powder umeclidinium 62.5 mcg/actuation 1 inh INHALATION QDAY #30 ea 09/12/19 blister powder for inhalation clopidogrel 75 mg tablet 75 mg PO DAILY #90 tab 10/29/19 potassium chloride 20 mEq 20 meq PO BID #180 tab 10/31/19 tablet,extended release ferrous sulfate 325 mg (65 mg 325 mg PO DAILY 12/17/19 iron) tablet pumpkin seed extract-soy germ 300 1 cap PO DAILY cap 12/17/19 mg capsule Citalopram [Celexa] 20 mg PO DAILY 02/26/20 Furosemide 20 mg PO DAILY 02/26/20 Latanoprost 0.005% [Xalatan 1 drp EACH EYE QHS 02/26/20 Opthalmic] Levothyroxine [Synthroid] 25 mcg PO DAILY 02/26/20 Lisinopril 20 mg PO DAILY 02/26/20 Loratadine 10 mg PO DAILY 02/26/20 Prednisone 10 mg PO DAILY 02/26/20 doxycycline hyclate 100 mg tablet 100 mg PO BID #20 tab 02/26/20 Surgical History: Surgical History (Last Reviewed 02/26/20 @ 17:[address] Zuleyka Euceda DO) Status post transcatheter aortic valve replacement (TAVR) using bioprosthesis (Chronic) Onset Date: ~01/31/16 Z95.4 26mm Sapian S3 Valve @ [facility] 01/31/16 S/P CABG x 2 (Chronic) Onset Date: ~2002 Z95.1 History of left-sided carotid endarterectomy Z98.890 History of nephrectomy Z90.5 History of tubal ligation Z98.51 Surgical History: coronary bypass surgery, - - TAVR, CABG 2002, Esophogus rupture, L nephrectomy, tubal ligation. Psychiatric History: Anxiety, Depression Lives: With Family Smoking Status: Former smoker - *Family History Maternal Family History: Family History (Last Reviewed 02/26/20 @ 17:[address] Zuleyka Euceda DO) Mother Heart disease Father Heart disease Father Myocardial infarction History Items: No pertinent history Paternal Family History: Family History (Last Reviewed 02/26/20 @ 17:[address] Zuleyka Euceda DO) Mother Heart disease Father Heart disease Father Myocardial infarction History Items: No pertinent history Offspring Family History: Family History (Last Reviewed 02/26/20 @ 17:[address] Zuleyka Euceda DO) Mother Heart disease Father Heart disease Father Myocardial infarction History Items: Asthma Review of Systems Constitutional: Reports: Weakness, Weight Change, Fatigue. Denies: Anorexia, Chills, Fever, Night Sweats, Malaise Eyes: Denies: Blurred vision, Double vision, Drainage, Eyelid Inflammation, Pain, Redness, Vision Change HEENT: Denies: Difficulty Hearing, Ear Pain, Eye Pain, Head Aches, Nasal bleeding, Nasal Congestion, Post Nasal Drip, Sinus Congestion, Sinus Drainage, Sore Throat, Visual Changes Cardiovascular: Reports: Chest Pain - intermittent and usually with exertion, Edema, Orthopnea. Denies: Claudication, Chest Pressure, Chest Tightness, Heaviness, Light Headedness, Palpitations, Paroxysmal Noc. Dyspnea, Syncope Respiratory: Reports: Cough - chronic, Shortness of Breath, Shortness of breath at rest, Shortness of breath upon exertion. Denies: Hemoptysis, Pleuritic Pain, Sputum production, Wheezing Gastrointestinal: Denies: Abdominal Pain, Constipation, Diarrhea, Dyspepsia, Hematemesis, Hematochezia, Nausea, Melena, Vomiting Genitourinary: Reports: Frequency, Incontinence. Denies: Dysuria, Hematuria, Hesitancy, Nocturia, Retention, Urgency Musculoskeletal: Denies: Back Pain, Joint Pain, Joint stiffness, Joint swelling, Joint Tenderness, Muscle pain, Neck Pain Skin: Denies: Dryness, Jaundice, Lesions, Pruritis, Rash, Skin Changes, Wounds Neurological: Denies: Balance problems, Slurred speech, Confusion, Focal weakness, Headaches, Incoordination, Numbness, Tingling, Tremor, Seizures Psychiatric: Reports: Anxiety, Depression Endocrine: Denies: Change in Body Habitus, Heat/ Cold Intolerance, Polydipsia, Polyuria Hematologic/ Lymphatic: Denies: Adenopathy, Anemia, Easy Bruising, Easy Bleeding, Petechiae, Purpura VTE Information - Inpt Only VTE Present on Admission: No VTE Mechan Device Prophylaxis: None VTE Pharm Prophylaxis ordered?: Yes - Physical Exam Vitals/I&O's: Vital Signs Temp Pulse Resp BP Pulse Ox 98.9 F 85 24 H 185/78 H 98 02/26/20 16:54 02/26/20 16:54 02/26/20 16:54 02/26/20 16:54 02/26/20 16:54 Oxygen Flow Rate (L/min) 3 Oxygen Delivery Method Nasal Cannula Weight: 108 kg Body Mass Index (BMI) 44.9 General: Alert, Oriented x3, Cooperative, Well developed, Well nourished, - - Very anxious older white female, significant dyspnea with conversation HEENT: Atraumatic, PERRLA, EOMI, Normocephalic, EAC Clear Oral: No Gingival or Mucosal Lesions/ Ulcerations, Dry Mucosa, - - Mallampati 3-4, no thrush Neck: Supple, Negative Carotid Bruits, No Nodes, Trachea Midline, Thyroid Normal Size and Texture, JVD, Bilateral Lungs: No rhonchi, No wheeze, Rales - Bilateral bases about one third of lung oliveros distally, Short of Breath, Tachypneic Cardiovascular: Regular rate, Regular Rhythm, Normal S1, Normal S2, No Ectopic Activity, Murmur, No rub noted, No Gallop Abdomen: Bowel Sounds Present, Soft, Non Tender, Non-Distended, Obese Extremities: No clubbing, No cyanosis, Capillary Refill Less than 3 Seconds, Edema - Trace bilateral lower extremity pitting, Peripheral Pulses Normal Skin: No rashes, No breakdown, - - Pale Musculoskeletal: No Tenderness to Palpation of Joints or Extremities, No Muscle Wasting, Arthritic Changes Lymphatic: No Cervical, Supraclavicular, or Inguinal Adenopathy Neurological: Cranial nerves II-XII grossly intact, Deep Tendon Reflexes 2+/4 and Symmetrical, Neuro grossly intact, Muscle tone normal, Sensory exam intact to light touch and pain, Coordination normal, - - Generalized weakness proximal greater than distal no focal deficits Psych/Mental Status: Appropriate, Anxious Microbiology Past 72 Hours 02/26/20 14:57 Mucosa - Nose SARS-CoV-2 Antigen (Rapid) - Final Laboratory Results 02/26/20 14:45: WBC 13.4 H, RBC 3.64 L, Hgb 10.4 L, Hct 31.5 L, MCV 86.5, MCH 28.6, MCHC 33.0, RDW Std Deviation 45.9 H, RDW Coeff of Pastora 14.6, Plt Count 248, MPV 9.8, Immature Gran % (Auto) 0.500, Neut % (Auto) 88.9 H, Lymph % (Auto) 6.3 L, Bailey % (Auto) 4.0, Eos % (Auto) 0.1, Baso % (Auto) 0.2, Absolute Neuts (auto) 11.9 H, Absolute Lymphs (auto) 0.84, Nucleated RBC % 0 02/26/20 14:45: Sodium 133 L, Potassium 4.4, Chloride 99, Carbon Dioxide 26.0, Anion Gap 8, BUN 17, Creatinine 0.96, Estim Creat Clear Calc 36.44, Est GFR (MDRD) Af Amer 72, Est GFR (MDRD) Non-Af 60, BUN/Creatinine Ratio 17.7, Glucose 140 H, Calcium 9.1, Troponin I 0.213 H 02/26/20 14:45: Lactic Acid 1.5 02/26/20 14:45: B-Natriuretic Peptide Pending Assessment/Plan All Active Problems (Last Reviewed 02/26/20 @ 17:[address] Zuleyka Euceda, DO) Left carotid artery stenosis (Acute) Paroxysmal supraventricular tachycardia by electrocardiogram (ECG) (Acute) Left bundle branch block (LBBB) (Acute) UTI (urinary tract infection) (Resolved) Acute on chronic hypoxic respiratory failure 2/2 decompensated HFpEF -It appears that she had a heart catheterization in 2015 at [facility] prior to her TAVR she did have proximal 75% stenosis of her circumflex at that time and patent grafts to her LAD and OM/circumflex -She had an ECHO approximately 2 years ago that showed an EF of 55%, moderately enlarged LA, mild MVI, stable bioprosthetic aortic valve, and RVSP of 45 mmHg, -Continue supplemental oxygen -wean as able -BNP was markedly elevated at 1113.8 -Patient takes Lasix 20 mg p.o. daily at home -We will give Lasix 40 mg IV push twice daily and follow BMP -Strict I's and O's -Cardiac diet -Daily weights -Repeat ECHO-->? If normal [facility] -COVID-19 was negative and patient asymptomatic otherwise -Consult cardiology Elevated troponin -cycle -EKG without ischemic changes but has chronic LBBB -Continue aspirin and Plavix Hyponatremia -Suspect hypervolemic hyponatremia -Expect this to improve with diuresis -BMP in a.m. Aortic stenosis status post TAVR 2015 -Shortness of breath could be related to worsening stenosis -ECHO pending Left carotid disease -Continue aspirin and Plavix -Status post left carotid endarterectomy Hypertension -Continue lisinopril 20 mg daily -Continue metoprolol 25 mg twice daily History of nephrectomy -Stable creatinine -Monitor BMP with diuresis COPD -Continue supplemental O2 -Baseline requirement is 2 L -Continue home inhalers -Hold doxycycline and prednisone Hyperlipidemia -Continue home atorvastatin 80 mg nightly Obstructive sleep apnea -BiPAP nightly with O2 bleed 17\13 cm of water DM-2 -Continue home insulin -Sliding scale with meals -BGT before meals and at bedtime Hypothyroidism -TSH -Continue levothyroxine Allergies -Tinea loratadine GERD -Continue PPI Depression\anxiety -Continue Xanax 0.25 mg every 12 hours as needed -Continue citalopram DVT prophylaxis -Lovenox 40 mg daily CODE STATUS -Full code Inpatient E&M: 00653 Init Hosp L3
[2020-02-26 17:10] LABS: BNP,B-Type NATRIURETIC PEPTIDE 1113.8 pg/mL (0-100)
[2020-02-26] MEDS: ALPRAZolam 0.5 MG Tablet 1 MG PO (17:26)
--- NOTE | 2020-02-26 17:27 | ECHOCS_ITS ---
Reason For Study: SOB Procedure This was a 2D Doppler, Color Flow transthoracic echocardiogram. The study was technically difficult. Exam performed portable in patient room. Left Ventricle Normal LV size. Severe concentric left ventricular hypertrophy. The estimated ejection fraction is 45 %. Septal motion consistent with IVCD. Stage 2 diastolic dysfunction. There is mild global hypokinesis of the left ventricle. Right Ventricle Normal RV size. Normal systolic function. Atria The left atrium is mildly enlarged. Normal right atrium. Mitral Valve There is mild to moderate mitral annular calcification. Mild (1+) eccentric mitral valve insufficiency. Tricuspid Valve Normal tricuspid valve. Mild tricuspid valve insufficiency. Pulmonary artery systolic pressure is 37 mmHg. Aortic Valve Peak aortic valve gradient 14 mmHg. Mean aortic valve gradient 7 mmHg. Stable appearing bioprosthetic aortic valve apparatus. Pulmonic Valve The pulmonic valve is not well visualized. Great Vessels Normal aortic root. The pulmonary artery is normal size. Normal inferior vena cava. Pericardium/Pleural No pericardial effusion. MMode/2D Measurements & Calculations RVDd: 3.2 cm LVOT diam: 2.0 cm Ao root diam: 3.2 cm LVOT area: 3.0 cm2 LAV(MOD-bp): 61.3 ml LA dimension(2D): 3.7 cm LA A4 area: 24.4 cm2 LAV(MOD-bp) Indexed: 31.1 ml/m2 LAV(MOD-sp2): 46.3 ml LAV(MOD-sp4): 64.1 ml RA A4 area: 12.7 cm2 Doppler Measurements & Calculations MV E max alfred: 126.5 cm/sec Lat Peak E' Alfred: 5.4 cm/sec Med Peak E' Alfred: 2.8 cm/sec MV A max alfred: 130.1 cm/sec E/E' lat: 23.6 E/E' med: 45.5 MV E/A: 0.97 MV V2 max: 149.7 cm/sec MV P1/2t max alfred: 126.4 cm/sec Ao V2 max: 183.6 cm/sec MV max P.0 mmHg MV P1/2t: 107.7 msec Ao max P.5 mmHg MV V2 mean: 93.8 cm/sec MV dec slope: 343.6 cm/sec2 Ao V2 mean: 124.5 cm/sec MV mean P.9 mmHg Ao mean P.0 mmHg MV V2 VTI: 50.6 cm MVA(P1/2t): 2.0 cm2 Ao V2 VTI: 37.6 cm MVA(VTI): 1.6 cm2 KARLENE(I,D): 2.1 cm2 KARLENE(V,D): 2.0 cm2 LV V1 max: 121.1 cm/sec SV(LVOT): 80.2 ml PA V2 max: 123.1 cm/sec LV V1 max P.9 mmHg LV V1 mean P.3 mmHg LV V1 mean: 85.6 cm/sec LV V1 VTI: 26.8 cm TR max alfred: 284.0 cm/sec TR max P.0 mmHg Interpretation Summary Normal LV size. Severe concentric left ventricular hypertrophy. The estimated ejection fraction is 45 %. Septal motion consistent with IVCD. Stage 2 diastolic dysfunction. Pulmonary artery systolic pressure is 37 mmHg. Contrast injection was performed. Ordering Physician: Zuleyka Euceda Referring Physician: Chiara Zee M.D. Performed By: Lizzy Diamond RDCS
--- NOTE | 2020-02-26 17:36 | PCS.PANDOC ---
PANDEMIC DOCUMENTATION INITIATED: Date: 02/26/2020 Time: 5858
[2020-02-26] MEDS: Albuterol 2.5 MG/3 ML VIAL.NEB. INHALATION (17:52)
[2020-02-26] MEDS: 0.9% Saline Lock 10 ML Syringe IV (19:16)
[2020-02-26] MEDS: Budesonide Respules 0.5 MG/2 ML AMPUL.NEB. INHALATION (19:30)
[2020-02-26] MEDS: Metoprolol Tartrate 25 MG Tablet PO (21:11)
[2020-02-26] MEDS: Atorvastatin Calcium 80 MG Tablet PO (21:11)
[2020-02-26] MEDS: Nitroglycerin Oint 1 INCH PACKET TD (21:11)
[2020-02-26] MEDS: Latanoprost 0.005% 1 Bottle 1 DRP EACH EYE (21:12)
[2020-02-26 22:51] LABS: Bedside Glucose 239 mg/dL (70-110)
[2020-02-27] VITALS (14 sets, daily range): BP systolic 113–156; BP diastolic 43–76; PULSE 61–79; RESP 17–20; TEMP 36.5–36.8; O2SAT 95–98
[2020-02-27] MEDS: Nitroglycerin Oint 1 INCH PACKET TD (06:15)
[2020-02-27] MEDS: Levothyroxine 25 MCG TABLET PO (06:16)
[2020-02-27] MEDS: Ipratropium/Albuterol Sulfate 3 ML AMPUL.NEB INHALATION ×2 (06:50→18:28)
[2020-02-27] MEDS: Budesonide Respules 0.5 MG/2 ML AMPUL.NEB. INHALATION ×2 (06:55→18:28)
[2020-02-27 07:32] LABS: Absolute Neutrophil Count 5.5 X10^3/uL (2.0-7.7); Basophil# 0.02 X10^3/uL; Basophil% 0.2 % (0-1); Eosinophil# 0.04 X10^3/uL; Eosinophils% 0.5 % (0-5); Hematocrit 30.2 % (37-47); Hemoglobin 9.8 g/dL (12.0-15.0); Lymphocyte % 24.6 % (19-41); Mean Corp Hgb Conc 32.5 g/dL (32-36); Mean Corpuscular Hgb 28.2 pg (27.0-32.0); Mean Platelet Vol. 9.3 fl (6.2-12.0); Monocyte# 0.83 X10^3/uL; Monocyte% 9.7 % (0-10); NRBC Flagged by Analyzer 0 % (0-5); Neutrophil # 5.49 X10^3/uL (2.7-7.7); Neutrophil % 64.5 % (47-70); Platelet Count 219 K/mm3 (150-450); RBC Distribution Width CV 14.9 % (11.6-14.6); Red Blood Count 3.47 M/mm3 (4.2-5.4); White Blood Count 8.5 K/mm3 (4.4-11.0)
[2020-02-27 08:04] LABS: ALB/GLOB Ratio 0.9 RATIO (0.9-2.4); AST(SGOT) 21 U/L (15-37); Alanine Aminotransfer ALT/SGPT 20 U/L (13-56); Albumin, Serum 3.3 g/dL (3.2-5.0); Alkaline Phosphatase 78 U/L (45-117); Anion Gap 7 (5-15); BUN 23 mg/dL (7-18); BUN/Creat Ratio 21.9 RATIO (10-20); Calcium,Total 8.9 mg/dL (8.5-10.1); Chloride 95 mmol/L (98-107); Cholesterol 103 mg/dL (200); Creatinine, Serum 1.05 mg/dL (0.55-1.02); EST Glomerular Filtration Rate 54 mL/min (>60); Est Glom Filt Rate - Afr Amer 65 mL/min (>60); Estimated Creatinine Clearance 33.32 ml/min; Globulin 3.6 g/dL (2.2-4.2); Glucose 103 mg/dL (74-106); High Density Lipoprotein 55 mg/dL; Magnesium 1.9 mg/dL (1.6-2.6); Phosphorus 4.1 mg/dL (2.5-4.9); Potassium 3.5 mmol/L (3.5-5.1); Protein, Total 6.9 g/dL (6.4-8.2); Sodium Level 133 mmol/L (136-145); Thyroid Stim Hormone (TSH) 1.98 uIU/mL (0.358-3.74); Triglycerides 55 mg/dL; Very Low Density Lipoprotein 11 mg/dL (5-40)
[2020-02-27] MEDS: Aspirin E.C. 81 MG Tablet PO (08:45)
[2020-02-27] MEDS: Ferrous Sulfate 325 MG Tablet PO (08:45)
[2020-02-27] MEDS: Insulin Lispro 100 UNIT/ML INSULN.PEN 8 UNIT SC (08:45)
[2020-02-27] MEDS: Loratadine 10 MG Tablet PO (08:46)
[2020-02-27] MEDS: Furosemide 40 MG/4 ML Vial IV ×2 (08:46→18:35)
[2020-02-27] MEDS: Citalopram 20 MG Tablet PO (08:46)
[2020-02-27] MEDS: Metoprolol Tartrate 25 MG Tablet PO ×2 (08:47→20:33)
[2020-02-27] MEDS: Lisinopril 20 MG Tablet PO (08:48)
[2020-02-27] MEDS: Clopidogrel Bisulfate 75 MG Tablet PO (08:48)
[2020-02-27] MEDS: Acetaminophen 325 MG Tablet 650 MG PO (08:48)
[2020-02-27] MEDS: Enoxaparin 40 MG/0.4 ML Syringe SC (08:48)
[2020-02-27] MEDS: Pantoprazole Sodium 40 MG Tablet PO (08:48)
[2020-02-27] MEDS: 0.9% Saline Lock 10 ML Syringe IV ×2 (08:49→18:35)
[2020-02-27 09:06] LABS: Bedside Glucose 110 mg/dL (70-110)
--- NOTE | 2020-02-27 10:19 | PCM.PN.HOSP ---
Subjective: Feels much better than when she came in last night. She is breathing better and back to her baseline 2 L nasal cannula Vitals/I&O's: Vital Signs Temp Pulse Resp BP Pulse Ox 97.8 F 65 17 113/76 96 02/27/20 08:23 02/27/20 08:47 02/27/20 08:23 02/27/20 08:23 02/27/20 08:23 Oxygen Flow Rate (L/min) 2 Oxygen Delivery Method Nasal Cannula Weight: 222 lb 3.615 oz Body Mass Index (BMI) 42.2 Intake and Output for Last 24 Hours 02/25/20 02/26/20 02/27/20 23:59 23:59 23:59 Intake Total 200 / 200 120 / 120 Output Total 1200 / 1200 400 / 400 Balance -1000 / -1000 -280 / -280 General: Alert, Oriented x3, Cooperative, No apparent distress HEENT: Atraumatic, PERRLA, EOMI, Normocephalic Oral: Moist Mucosa Neck: Supple, No JVD Lungs: Normal air movement, No rhonchi, No wheeze, No rales, Diminished Cardiovascular: Regular rate, Regular Rhythm, Normal S1, Normal S2, No murmurs Abdomen: Soft, Non Tender, Non-Distended, No Hepato-splenomegaly Extremities: No edema, Capillary Refill Less than 3 Seconds Skin: No rashes, No breakdown Neurological: Neuro grossly intact, Sensory exam intact to light touch and pain Psych/Mental Status: Normal Affect, Appropriate Microbiology Past 72 Hours 02/26/20 14:57 Mucosa - Nose SARS-CoV-2 Antigen (Rapid) - Final Laboratory Results 02/26/20 14:45: WBC 13.4 H, RBC 3.64 L, Hgb 10.4 L, Hct 31.5 L, MCV 86.5, MCH 28.6, MCHC 33.0, RDW Std Deviation 45.9 H, RDW Coeff of [place] 14.6, Plt Count 248, MPV 9.8, Immature Gran % (Auto) 0.500, Neut % (Auto) 88.9 H, Lymph % (Auto) 6.3 L, [place] % (Auto) 4.0, Eos % (Auto) 0.1, Baso % (Auto) 0.2, Absolute Neuts (auto) 11.9 H, Absolute Lymphs (auto) 0.84, Nucleated RBC % 0 02/26/20 14:45: Sodium 133 L, Potassium 4.4, Chloride 99, Carbon Dioxide 26.0, Anion Gap 8, BUN 17, Creatinine 0.96, Estim Creat Clear Calc 36.44, Est GFR (MDRD) Af Amer 72, Est GFR (MDRD) Non-Af 60, BUN/Creatinine Ratio 17.7, Glucose 140 H, Calcium 9.1, Troponin I 0.213 H 02/26/20 14:45: Lactic Acid 1.5 02/26/20 14:45: B-Natriuretic Peptide 1113.8 H 02/26/20 17:47: Troponin I 0.155 H 02/26/20 20:16: Troponin I 0.158 H 02/26/20 21:10: POC Glucose 239 H 02/27/20 07:09: WBC 8.5, RBC 3.47 L, Hgb 9.8 L, Hct 30.2 L, MCV 87.0, MCH 28.2, MCHC 32.5, RDW Std Deviation 47.0 H, RDW Coeff of [place] 14.9 H, Plt Count 219, MPV 9.3, Immature Gran % (Auto) 0.500, Neut % (Auto) 64.5, Lymph % (Auto) 24.6, [place] % (Auto) 9.7, Eos % (Auto) 0.5, Baso % (Auto) 0.2, Absolute Neuts (auto) 5.5, Absolute Lymphs (auto) 2.10, Nucleated RBC % 0 02/27/20 07:09: Sodium 133 L, Potassium 3.5, Chloride 95 L, Carbon Dioxide 31.0, Anion Gap 7, BUN 23 H, Creatinine 1.05 H, Estim Creat Clear Calc 33.32, Est GFR (MDRD) Af Amer 65, Est GFR (MDRD) Non-Af 54 L, BUN/Creatinine Ratio 21.9 H, Glucose 103, Calcium 8.9, Phosphorus 4.1, Magnesium 1.9, Total Bilirubin 1.30 H, AST 21, ALT 20, Alkaline Phosphatase 78, Total Protein 6.9, Albumin 3.3, Globulin 3.6, Albumin/Globulin Ratio 0.9, Triglycerides 55, Cholesterol 103, LDL Cholesterol 37, VLDL Cholesterol 11, HDL Cholesterol 55, TSH 1.98 02/27/20 08:39: POC Glucose 110 Current Medications Acetaminophen (Acetaminophen 325 Mg Tablet) 650 mg PO Q6H PRN PRN PRN Reason: Pain Score 1-10/Temp > 100.7 F Last Admin: 02/27/20 08:48 Dose: 650 mg Documented by: Al Hydroxide/Mg Hydroxide (Mag Hydrox/Al Hydrox/Simeth 30 Ml Udc) 30 ml PO Q6H PRN PRN PRN Reason: Gastric Burning Albuterol Sulfate (Albuterol 2.5 Mg/3 Ml Vial.Neb.) 2.5 mg INHALATION Q2H PRN PRN PRN Reason: SOB/Wheezing Last Admin: 02/26/20 17:52 Dose: 2.5 mg Documented by: Albuterol/Ipratropium (Ipratropium/Albuterol Sulfate 3 Ml Ampul.Neb) 3 ml INHALATION Q6HWA.RT [facility] Last Admin: 02/27/20 06:50 Dose: 3 ml Documented by: Alprazolam (Alprazolam 0.25 Mg Tablet) 0 mg PO Q12H PRN PRN PRN Reason: ANXIETY Aspirin (Aspirin E.C. 81 Mg Tablet) 81 mg PO DAILY@0800 [facility] Last Admin: 02/27/20 08:45 Dose: 81 mg Documented by: Atorvastatin Calcium (Atorvastatin Calcium 80 Mg Tablet) 80 mg PO QHS [facility] Last Admin: 02/26/20 21:11 Dose: 80 mg Documented by: Budesonide (Budesonide Respules 0.5 Mg/2 Ml Ampul.Neb.) 0.5 mg INHALATION Q12H.RT [facility] Last Admin: 02/27/20 06:55 Dose: 0.5 mg Documented by: Citalopram Hydrobromide (Citalopram 20 Mg Tablet) 20 mg PO DAILY [facility] Last Admin: 02/27/20 08:46 Dose: 20 mg Documented by: Clopidogrel Bisulfate (Clopidogrel Bisulfate 75 Mg Tablet) 75 mg PO DAILY [facility] Last Admin: 02/27/20 08:48 Dose: 75 mg Documented by: Docusate Sodium (Docusate Sodium 100 Mg Capsule) 100 mg PO BID PRN PRN PRN Reason: Constipation Enoxaparin Sodium (Enoxaparin 40 Mg/0.4 Ml Syringe) 40 mg SC DAILY [facility] Last Admin: 02/27/20 08:48 Dose: 40 mg Documented by: Ferrous Sulfate (Ferrous Sulfate 325 Mg Tablet) 325 mg PO DAILYCM [facility] Last Admin: 02/27/20 08:45 Dose: 325 mg Documented by: Furosemide (Furosemide 40 Mg/4 Ml Vial) 40 mg IV BID@1000,1800 [facility] Last Admin: 02/27/20 08:46 Dose: 40 mg Documented by: Guaifenesin (Guaifenesin 10 Ml Udc (200mg/10ml)) 20 ml PO Q4H PRN PRN PRN Reason: COUGH Insulin Glargine (Insulin Glargine 100 Units/Ml Pen) 10 units SC QHS [facility] Last Admin: 02/26/20 21:10 Dose: 10 u Documented by: Insulin Human Lispro (Insulin Lispro 100 Unit/Ml Insuln.Pen) 8 unit SC BREAKFAST [facility] Last Admin: 02/27/20 08:45 Dose: 8 units Documented by: Latanoprost (Latanoprost 0.005% 1 Bottle) 1 drop EACH EYE QHS [facility] Last Admin: 02/26/20 21:12 Dose: 1 drop Documented by: Levothyroxine Sodium (Levothyroxine 25 Mcg Tablet) 25 mcg PO DAILY@0600 [facility] Last Admin: 02/27/20 06:16 Dose: 25 mcg Documented by: Lisinopril (Lisinopril 20 Mg Tablet) 20 mg PO DAILY [facility] Last Admin: 02/27/20 08:48 Dose: 20 mg Documented by: Loratadine (Loratadine 10 Mg Tablet) 10 mg PO DAILY [facility] Last Admin: 02/27/20 08:46 Dose: 10 mg Documented by: Melatonin (Melatonin 3 Mg Tablet) 3 mg PO QHS PRN PRN PRN Reason: INSOMNIA Metoprolol Tartrate (Metoprolol Tartrate 25 Mg Tablet) 25 mg PO BID [facility] Last Admin: 02/27/20 08:47 Dose: 25 mg Documented by: Nitroglycerin (Nitroglycerin Oint 1 Inch Packet) 1 inch TD Q8 [facility] Last Admin: 02/27/20 06:15 Dose: 1 inch Documented by: Ondansetron HCl (Ondansetron 4 Mg/2 Ml Vial) 4 mg IV Q8H PRN PRN PRN Reason: NAUSEA/VOMITING Pantoprazole Sodium (Pantoprazole Sodium 40 Mg Tablet) 40 mg PO DAILY [facility] Last Admin: 02/27/20 08:48 Dose: 40 mg Documented by: Sodium Chloride (0.9% Saline Lock 10 Ml Syringe) 10 - 40 ml IV UD PRN PRN Reason: SALINE FLUSH Last Admin: 02/27/20 08:49 Dose: 10 ml Documented by: STROKE Vital Signs/Narrative: Vital Signs Temp Pulse Resp BP Pulse Ox 02/27/20 08:47 65 02/27/20 08:23 97.8 F 65 17 113/76 96 02/27/20 07:17 64 02/27/20 06:50 64 18 98 Medical Necessity - Tobacco Use Smoking Status: Former smoker Assessment/Plan All Active Problems (Last Reviewed 02/26/20 @ 17:[address] Zuleyka Euceda, DO) Left carotid artery stenosis (Acute) Paroxysmal supraventricular tachycardia by electrocardiogram (ECG) (Acute) Left bundle branch block (LBBB) (Acute) UTI (urinary tract infection) (Resolved) 1. Acute on chronic hypoxic respiratory failure secondary to decompensated diastolic CHF/elevated troponin/aortic stenosis status post TAVR 2015/left carotid disease/HTN/HLD/CAD status post CABG -Continue with Lasix for diuresis, she did have a history of nephrectomy therefore we will closely monitor her creatinine -Echo is pending, she did have a previous heart cath at [facility] in 2016 which had a proximal 75% stenosis of her circumflex iliacs -Cardiology was consulted, appreciate recommendations -Continue with aspirin and Plavix -He does have a known left bundle branch block, no new ischemic changes on her EKG, repeat troponins decreased -Blood pressure stable, can continue with her home blood pressure medications -Continue statin 2. DM 2 -Continue with her home insulin -Accu-Cheks AC at bedtime, will make adjustments as necessary to her insulin 3. COPD -She is on a baseline of 2 L nasal cannula at home -Currently not in exacerbation -Continue with her home inhalers, her doxy and prednisone were held on admission 4. Hypothyroidism -Stable -Continue with Synthroid 5. GERD -Stable -Continue with PPI 6. Anxiety/depression -Stable -Continue with her Xanax and citalopram DVT: Lovenox Inpatient E&M: 02450 Subs Hosp L2
--- NOTE | 2020-02-27 10:33 | CON.PCM_ITS ---
Reason for Consult Date of Consultation: 02/27/20 Reason for Consultation: Shortness of breath History of Present Illness: The patient is a 80 year old F with a past medical history of coronary artery bypass surgery x2 in 2002. She also has a history of aortic valve stenosis and underwent a TAVR in 2016. She has an extensive medical history including hypertension, hyperlipidemia, obstructive sleep apnea, obstructive lung disease. She had been doing well until the last few weeks when she started getting short of breath. She denies any fever chills or sick contacts. She apparently saw her library historian and was given some steroids as well as doxycycline. She probably has not started taking the doxycycline yet. She continued to do few bad with some nausea and so presented to the emergency room. In the emergency room she was noted to be hypertensive and tachycardic with a left bundle branch block. She was initially placed on nasal cannula and then on BiPAP. She was also noted to have an elevated BNP as well as mildly elevated troponin. Of note was the fact that she has been compliant with her medications but certainly over the [place] she has not been very compliant with her diet. She has not developed any pedal edema but she does have some orthopnea. She was given intravenous Lasix but currently appears to be much better. Past Medical History Allergies/Adverse Reactions: Allergies Penicillins Allergy (Mild, Verified 02/26/20 14:29) unknown levofloxacin [From Levaquin] Allergy (Verified 02/26/20 14:29) Hives atorvastatin [From Lipitor] Adverse Reaction (Mild, Verified 02/26/20 14:29) Muscle pains adhesive tape Adverse Reaction (Verified 02/26/20 14:29) Itching amoxicillin [From Augmentin] Adverse Reaction (Verified 02/26/20 14:29) Diarrhea clavulanic acid [From Augmentin] Adverse Reaction (Verified 02/26/20 14:29) Diarrhea lorazepam [From Ativan] Adverse Reaction (Verified 02/26/20 14:29) Other Home Medications: Ambulatory Orders Medication Instructions Recorded ALPRAZolam [Xanax] 0.25 - 0.5 tab PO Q12H PRN PRN 02/19/16 Aspirin E.C. [Ecotrin] 81 mg PO DAILY@0800 02/19/16 Atorvastatin Calcium [Lipitor] 80 mg PO QHS 02/19/16 Insulin Aspart [Novolog Flexpen] 8 units SC BREAKFAST 02/19/16 Insulin Glargine,Hum.rec.anlog 10 unit SQ QHS 02/19/16 [Lantus] Pantoprazole Sodium [Protonix] 40 mg PO DAILY 02/19/16 cholecalciferol (vitamin D3) 125 5,000 unit PO DAILY 03/06/18 mcg (5,000 unit) capsule ipbarzax-cgo-cntxy acid 0.4 1 tab PO DAILY 03/06/18 mg-lycopene 300 mcg-lutein 250 mcg tablet vitamins A,C,K-jnhg-ybabac 14,320 1 cap PO DAILY cap 03/06/18 unit-226 mg-200 unit capsule albuterol sulfate 90 mcg/actuation 2 puff INHALATION Q4H PRN #18 g 11/22/18 aerosol inhaler metoprolol tartrate 25 mg tablet 25 mg PO BID #180 tab 05/08/19 fluticasone furoate 200 1 inh INHALATION DAILY #60 ea 09/12/19 mcg-vilanterol 25 mcg/dose inhalation powder umeclidinium 62.5 mcg/actuation 1 inh INHALATION QDAY #30 ea 09/12/19 blister powder for inhalation clopidogrel 75 mg tablet 75 mg PO DAILY #90 tab 10/29/19 potassium chloride 20 mEq 20 meq PO BID #180 tab 10/31/19 tablet,extended release ferrous sulfate 325 mg (65 mg 325 mg PO DAILY 12/17/19 iron) tablet pumpkin seed extract-soy germ 300 1 cap PO DAILY cap 12/17/19 mg capsule Citalopram [Celexa] 20 mg PO DAILY 02/26/20 Furosemide 20 mg PO DAILY 02/26/20 Latanoprost 0.005% [Xalatan 1 drp EACH EYE QHS 02/26/20 Opthalmic] Levothyroxine [Synthroid] 25 mcg PO DAILY 02/26/20 Lisinopril 20 mg PO DAILY 02/26/20 Loratadine 10 mg PO DAILY 02/26/20 Prednisone 10 mg PO DAILY 02/26/20 doxycycline hyclate 100 mg tablet 100 mg PO BID #20 tab 02/26/20 Past Medical History (Chronic Problems): Chronic Problems (Last Reviewed 02/26/20 @ 17:[address] Zuleyka Euceda, DO) Adult BMI 40.0-44.9 kg/sq m (Chronic) Restrictive lung disease (Chronic) Left bundle-branch block, unspecified (Chronic) Atherosclerosis of coronary artery bypass graft without angina pectoris (Chronic) CABG X 2, 2002; MARGIE (obstructive sleep apnea) (Chronic) Dyspnea (Chronic) COPD (chronic obstructive pulmonary disease) (Chronic) Status post transcatheter aortic valve replacement (TAVR) using bioprosthesis (Chronic ~01/31/16) 26mm Sapian S3 Valve @ [facility] 01/31/16 Type 2 diabetes mellitus (Chronic) S/P CABG x 2 (Chronic ~2002) Esophageal abnormality (Chronic) Carotid artery disease (Chronic) S/P left carotid endarterectomy Surgical History: coronary bypass surgery, - - TAVR, CABG 2002, Esophogus rupture, L nephrectomy, tubal ligation. Psychiatric History: Anxiety, Depression - *Family History Maternal Family History: Family History (Last Reviewed 02/26/20 @ 17:[address] Zuleyka Euceda DO) Mother Heart disease Father Heart disease Father Myocardial infarction History Items: No pertinent history Paternal Family History: Family History (Last Reviewed 02/26/20 @ 17:[address] Zuleyka Euceda DO) Mother Heart disease Father Heart disease Father Myocardial infarction History Items: No pertinent history Offspring Family History: Family History (Last Reviewed 02/26/20 @ 17:[address] Zuleyka Euceda DO) Mother Heart disease Father Heart disease Father Myocardial infarction History Items: Asthma Lives: With Family Smoking Status: Former smoker Alcohol: None Drugs: None Subjectve: Pleasant lady in no distress Objective: Vital Signs Temp Pulse Resp BP Pulse Ox 97.8 F 65 17 113/76 96 02/27/20 08:23 02/27/20 08:47 02/27/20 08:23 02/27/20 08:23 02/27/20 08:23 Oxygen Flow Rate (L/min) 2 Oxygen Delivery Method Nasal Cannula Weight: 222 lb 3.615 oz Body Mass Index (BMI) 42.2 Intake and Output for Last 24 Hours 02/25/20 02/26/20 02/27/20 23:59 23:59 23:59 Intake Total 200 / 200 120 / 120 Output Total 1200 / 1200 400 / 400 Balance -1000 / -1000 -280 / -280 General: Awake, Alert, Oriented x 3 HEENT: PERRL, EOMI, Sclera Non Icteric Neck: Supple, Good ROM, No Lymph Node Enlargement Lungs: Diminished Steven Bases, Rales - Steven Bases Cardiovascular: Regular Rhythm, Normal S1, Normal S2, No Rubs, No Gallops Murmur Murmur: Grade 2/6, Early Systolic, LLSB Vascular: No Carotid Bruits, Normal Femoral Pulses, Normal Radial Pulses, Normal Dorsalis Pedal Pulse, Normal Posterior Tibial Pulses Abdomen: Bowel Sounds Present, Soft, Non Tender, No HSM, No Organomegaly Extremities: No Cyanosis, No Clubbing, No edema Musculoskeletal: No Erythema Neurological: No Focal Motor or Sensory Deficit 02/26/20 14:45: WBC 13.4 H, RBC 3.64 L, Hgb 10.4 L, Hct 31.5 L, MCV 86.5, MCH 28.6, MCHC 33.0, Plt Count 248, MPV 9.8, Immature Gran % (Auto) 0.500, Neut % (Auto) 88.9 H, Lymph % (Auto) 6.3 L, [place] % (Auto) 4.0, Eos % (Auto) 0.1, Baso % (Auto) 0.2, Absolute Neuts (auto) 11.9 H, Nucleated RBC % 0 02/26/20 14:45: Sodium 133 L, Potassium 4.4, Chloride 99, Carbon Dioxide 26.0, Anion Gap 8, BUN 17, Creatinine 0.96, Est GFR (MDRD) Af Amer 72, Est GFR (MDRD) Non-Af 60, BUN/Creatinine Ratio 17.7, Glucose 140 H, Calcium 9.1, Troponin I 0.213 H 02/26/20 14:45: Lactic Acid 1.5 02/26/20 14:45: B-Natriuretic Peptide 1113.8 H 02/26/20 17:47: Troponin I 0.155 H 02/26/20 20:16: Troponin I 0.158 H 02/27/20 07:09: WBC 8.5, RBC 3.47 L, Hgb 9.8 L, Hct 30.2 L, MCV 87.0, MCH 28.2, MCHC 32.5, Plt Count 219, MPV 9.3, Immature Gran % (Auto) 0.500, Neut % (Auto) 64.5, Lymph % (Auto) 24.6, [place] % (Auto) 9.7, Eos % (Auto) 0.5, Baso % (Auto) 0.2, Absolute Neuts (auto) 5.5, Nucleated RBC % 0 02/27/20 07:09: Sodium 133 L, Potassium 3.5, Chloride 95 L, Carbon Dioxide 31.0, Anion Gap 7, BUN 23 H, Creatinine 1.05 H, Est GFR (MDRD) Af Amer 65, Est GFR (MDRD) Non-Af 54 L, BUN/Creatinine Ratio 21.9 H, Glucose 103, Calcium 8.9, Phosphorus 4.1, Magnesium 1.9, Total Bilirubin 1.30 H, Triglycerides 55, Cholesterol 103, LDL Cholesterol 37, VLDL Cholesterol 11, HDL Cholesterol 55 Rhythm: EKG: ECHO: Stress Test: Cardiac Cath: PCI: CT Surgery: Holter monitor: EPS: PPM: CXR: Chest CT Scan: Assessment/Plan 1. Congestive heart failure with preserved ejection fraction. -It appears that she had a heart catheterization in 2015 at [facility] prior to her TAVR she did have proximal 75% stenosis of her circumflex at that time and patent grafts to her LAD and OM/circumflex -She had an ECHO approximately 2 years ago that showed an EF of 55%, moderately enlarged LA, mild MVI, stable bioprosthetic aortic valve, and RVSP of 45 mmHg, * We will repeat the above tomorrow to make sure there are no changes. * Continue with cardiac diet and emphasized this to her * Intravenous Lasix * Depending on the results of the echocardiogram we may consider her for stress testing. If the above is unremarkable then I would recommend medical therapy. I suspect that her exacerbation of CHF was likely secondary to dietary indiscretion. 2. Elevated troponin.. Patient has known coronary artery disease * Will continue beta-vasquez and aspirin and clopidogrel. * Stress test in a.m. 3.Aortic stenosis status post TAVR 2015 * -I suspect her valve integrity is fine. This will be confirmed with the echocardiogram. 4. Left carotid disease -Continue aspirin and Plavix -Status post left carotid endarterectomy 5. Hypertension -Continue lisinopril 20 mg daily -Continue metoprolol 25 mg twice daily Thank you for allowing me to participate in the care of your patient. Please don't hesitate to call if any issues arise.
[2020-02-27 13:21] LABS: Bedside Glucose 138 mg/dL (70-110)
--- NOTE | 2020-02-27 16:13 | NURSING ---
Offered to give patient Xanax. Patient states that she feels better now that her daughter is here. Doesn't want to take anything right now. Encouraged to inform RN if she changes her mind.
[2020-02-27 17:10] LABS: Bedside Glucose 159 mg/dL (70-110)
[2020-02-27] MEDS: ALPRAZolam 0.25 MG Tablet PO (20:19)
[2020-02-27] MEDS: Atorvastatin Calcium 80 MG Tablet PO (20:34)
[2020-02-27] MEDS: Latanoprost 0.005% 1 Bottle 1 DRP EACH EYE (20:34)
[2020-02-27] MEDS: MELATONIN 3 MG TABLET PO (22:12)
[2020-02-28] VITALS (8 sets, daily range): BP systolic 126–155; BP diastolic 56–74; PULSE 62–85; RESP 15–18; TEMP 36.6–36.8; O2SAT 95–98
[2020-02-28 00:11] LABS: Bedside Glucose 177 mg/dL (70-110)
--- NOTE | 2020-02-28 04:45 | EKG12_ITS ---
Test Reason : AM EKG Blood Pressure : / mmHG Vent. Rate : 061 BPM Atrial Rate : 061 BPM P-R Int : 126 ms QRS Dur : 168 ms QT Int : 510 ms P-R-T Axes : 000 -54 105 degrees QTc Int : 513 ms Normal sinus rhythm Left axis deviation Left bundle branch block Abnormal ECG When compared with ECG of 26-FEB-2020 15:25, MANUAL COMPARISON REQUIRED, DATA IS UNCONFIRMED Confirmed by ANA LILIA ALAS, BHARATHI ([id number]), general expeditor KIRSTY HAWLEY ([id number]) on 03/02/2020 9:20:19 AM Referred By: Emanuel Vela Confirmed By:BHARATHI SUNG MD
[2020-02-28] MEDS: Pantoprazole Sodium 40 MG Tablet PO (05:01)
[2020-02-28] MEDS: Lisinopril 20 MG Tablet PO (05:01)
[2020-02-28] MEDS: 0.9% Saline Lock 10 ML Syringe IV ×2 (05:01→10:21)
[2020-02-28] MEDS: Levothyroxine 25 MCG TABLET PO (05:02)
[2020-02-28] MEDS: Clopidogrel Bisulfate 75 MG Tablet PO (05:02)
[2020-02-28] MEDS: Aspirin E.C. 81 MG Tablet PO (05:02)
--- NOTE | 2020-02-28 05:55 | EKG12_ITS ---
Test Reason : SOB Blood Pressure : / mmHG Vent. Rate : 078 BPM Atrial Rate : 078 BPM P-R Int : 184 ms QRS Dur : 162 ms QT Int : 452 ms P-R-T Axes : 073 -51 109 degrees QTc Int : 515 ms Normal sinus rhythm Left axis deviation Left bundle branch block Abnormal ECG Confirmed by ANA LILIA ALAS, BHARATHI ([id number]), video editor KIRSTY HAWLEY ([id number]) on 03/01/2020 9:03:35 AM Referred By: SANJEEV/TAYA Confirmed By:BHARATHI SUNG MD
[2020-02-28 06:40] LABS: Bedside Glucose 126 mg/dL (70-110)
[2020-02-28 06:43] LABS: Absolute Lymphocyte Count 1.79 X10^3/uL (0.83-4.51); Absolute Neutrophil Count 5.3 X10^3/uL (2.0-7.7); Basophil# 0.04 X10^3/uL; Basophil% 0.5 % (0-1); Eosinophil# 0.14 X10^3/uL; Eosinophils% 1.7 % (0-5); Hematocrit 30.9 % (37-47); Hemoglobin 9.5 g/dL (12.0-15.0); Lymphocyte # 1.79 X10^3/ul (4.0); Lymphocyte % 21.8 % (19-41); Mean Corp Hgb Conc 30.7 g/dL (32-36); Mean Corpuscular Hgb 26.8 pg (27.0-32.0); Mean Platelet Vol. 9.1 fl (6.2-12.0); Monocyte# 0.93 X10^3/uL; Monocyte% 11.3 % (0-10); NRBC Flagged by Analyzer 0 % (0-5); Neutrophil # 5.27 X10^3/uL (2.7-7.7); Neutrophil % 64.2 % (47-70); Platelet Count 220 K/mm3 (150-450); RBC Distribution Width SD 48.5 fl (35.1-43.9); Red Blood Count 3.55 M/mm3 (4.2-5.4); White Blood Count 8.2 K/mm3 (4.4-11.0)
[2020-02-28] MEDS: Ipratropium/Albuterol Sulfate 3 ML AMPUL.NEB INHALATION (06:46)
[2020-02-28] MEDS: Budesonide Respules 0.5 MG/2 ML AMPUL.NEB. INHALATION (06:46)
[2020-02-28 07:00] LABS: Anion Gap 8 (5-15); BUN 28 mg/dL (7-18); BUN/Creat Ratio 23.7 RATIO (10-20); Calcium,Total 8.7 mg/dL (8.5-10.1); Chloride 97 mmol/L (98-107); Creatinine, Serum 1.18 mg/dL (0.55-1.02); EST Glomerular Filtration Rate 47 mL/min (>60); Est Glom Filt Rate - Afr Amer 57 mL/min (>60); Estimated Creatinine Clearance 29.65 ml/min; Glucose 112 mg/dL (74-106); Potassium 3.4 mmol/L (3.5-5.1); Sodium Level 134 mmol/L (136-145)
[2020-02-28] MEDS: Citalopram 20 MG Tablet PO (10:13)
[2020-02-28] MEDS: Furosemide 40 MG/4 ML Vial IV (10:13)
[2020-02-28] MEDS: Metoprolol Tartrate 25 MG Tablet PO (10:13)
[2020-02-28] MEDS: Loratadine 10 MG Tablet PO (10:13)
[2020-02-28] MEDS: Ferrous Sulfate 325 MG Tablet PO (10:13)
[2020-02-28] MEDS: Acetaminophen 325 MG Tablet 650 MG PO (10:15)
--- NOTE | 2020-02-28 10:21 | PN.CARD_ITS ---
Subjectve: Patient seen and evaluated. Appears to be doing so much better this morning. Objective: Vital Signs Temp Pulse Resp BP Pulse Ox 97.9 F 70 15 126/74 H 98 02/28/20 10:00 02/28/20 10:00 02/28/20 10:00 02/28/20 10:02/28/20 10:00 Oxygen Flow Rate (L/min) 2 Oxygen Delivery Method Nasal Cannula Weight: 222 lb 7.143 oz Body Mass Index (BMI) 42.2 Intake and Output for Last 24 Hours 02/26/20 02/27/20 02/28/20 23:59 23:59 23:59 Intake Total 200 / 200 740 / 960 220 / 220 Output Total 1200 / 1200 1000 / 1600 600 / 600 Balance -1000 / -1000 -260 / -640 -380 / -380 General: Awake, Alert, Oriented x 3 HEENT: PERRL, EOMI, Sclera Non Icteric Neck: Supple, Good ROM, No Lymph Node Enlargement Lungs: Clear to auscultation Cardiovascular: Regular Rhythm, Normal S1, Normal S2, No Murmurs, No Rubs, No Gallops Vascular: No Carotid Bruits, Normal Femoral Pulses, Normal Radial Pulses, Normal Dorsalis Pedal Pulse, Normal Posterior Tibial Pulses Abdomen: Bowel Sounds Present, Soft, Non Tender, No HSM, No Organomegaly Extremities: No Cyanosis, No Clubbing, No edema Neurological: No Focal Motor or Sensory Deficit 02/28/20 06:05: WBC 8.2, RBC 3.55 L, Hgb 9.5 L, Hct 30.9 L, MCV 87.0, MCH 26.8 L , MCHC 30.7 L D, Plt Count 220, MPV 9.1, Immature Gran % (Auto) 0.500, Neut % (Auto) 64.2, Lymph % (Auto) 21.8, [place] % (Auto) 11.3 H, Eos % (Auto) 1.7, Baso % (Auto) 0.5, Absolute Neuts (auto) 5.3, Nucleated RBC % 0 02/28/20 06:05: Sodium 134 L, Potassium 3.4 L, Chloride 97 L, Carbon Dioxide 29.0, Anion Gap 8, BUN 28 H, Creatinine 1.18 H, Est GFR (MDRD) Af Amer 57 L, Est GFR (MDRD) Non-Af 47 L, BUN/Creatinine Ratio 23.7 H, Glucose 112 H, Calcium 8.7 Rhythm: EKG: ECHO: Stress Test: Cardiac Cath: PCI: CT Surgery: Holter monitor: EPS: PPM: CXR: Chest CT Scan: Medical Necessity - Tobacco Use Smoking Status: Former smoker Assessment/Plan 1. Congestive heart failure with preserved ejection fraction. -It appears that she had a heart catheterization in 2016 at [facility] prior to her TAVR she did have proximal 75% stenosis of her circumflex at that time and patent grafts to her LAD and OM/circumflex, and an occluded LAD. -She had an ECHO approximately 2 years ago that showed an EF of 55%, moderately enlarged LA, mild MVI, stable bioprosthetic aortic valve, and RVSP of 45 mmHg, * We will repeat the above tomorrow to make sure there are no changes. * Continue with cardiac diet and emphasized this to her * Intravenous Lasix * 2. Elevated troponin.. Patient has known coronary artery disease * Will continue beta-vasquez and aspirin and clopidogrel. * Stress test demonstrated no significant ischemic zone, breast wall attenuation present in the anterior wall. 3.Aortic stenosis status post TAVR 2016 * -I suspect her valve integrity is fine. This will be confirmed with the echocardiogram. 4. Left carotid disease -Continue aspirin and Plavix -Status post left carotid endarterectomy 5. Hypertension -Continue lisinopril 20 mg daily -Continue metoprolol 25 mg twice daily Thank you for allowing me to participate in the care of your patient. Please don't hesitate to call if any issues arise.
--- NOTE | 2020-02-28 10:27 | STRESSREP_ITS ---
Stress Test Report Pharmacologic myocardial perfusion stress test. 80-year-old lady with a history of coronary artery bypass surgery status post aortic valve replacement and abnormal cardiac enzymes. Stress protocol: Resting EKG demonstrates normal sinus rhythm with a rate of 75 bpm and left bundle branch block pattern noted. 0.4 mg of regadenoson was infused per usual protocol followed by Intravenous saline flush injection continuous EKG monitoring was performed. The maximum heart rate attained was 86 bpm which was 60% of maximum predicted heart rate. The maximum workload was 1 metabolic equivalent. At rest left bundle branch block pattern was noted throughout. At peak infusion a similar pattern was noted. The resting blood pressure was 185 /78 with a final blood pressure of 178/74 mmHg. Myocardial perfusion protocol. 15.0 mCi of technetium 99m sestamibi was injected at rest. 0.4 mg of regadenoson was infused per usual protocol. At peak infusion 44.0 mCi of technetium 99m sestamibi was injected stress images were obtained stress and rest images were reconstructed and compared in the short axis vertical long horizontal long axis. Gated images were also obtained Perfusion SPECT analysis: Review of the stress images demonstrate mild reduction of uptake noted in the mid anterior wall on the stress images with a similar reduction on the resting images. The rest of the santa appear to be normally perfused. Anterior breast wall attenuation is suggested to the left bundle branch block pattern could also be affecting interpretation in this area. No obvious ischemia is noted. Gated SPECT analysis: The gated ejection fraction was noted to be 36% with a left bundle branch block pattern. Inaccuracies may be present. Conclusion: Pharmacologic myocardial perfusion stress test with no obvious ischemia noted. Anterior breast wall attenuation and left bundle branch block pattern noted.
[2020-02-28 13:01] LABS: Bedside Glucose 176 mg/dL (70-110)
--- NOTE | 2020-02-28 13:08 | DCINST_ITS ---
You will use the following diet at home:: Cardiac, Fluid restricted (specify 2000 mls, 1500 mls) - 1500 Your food should be the consistency of: Regular Your liquids should be the consistency of: Regular/Thin Discharge Activity: Return to Normal Activity Call your doctor if you observe: Fever of 101 or Higher, Shortness of breath, Dizziness, Fainting spells, Swelling in the ankles, Chest pain, Increased palpitations (irregular heartbeat) Instructions: What Is Heart Failure?, Heart Failure: Making Changes to Your Diet, Heart Failure: Medications to Help Your Heart Additional Instructions: Follow-up with your primary care physician in 3 to 5 days to obtain a BMP to monitor your kidney function since your diuretic has been increased. Allergies/Adverse Reactions: Allergies Penicillins Allergy (Mild, Verified 02/26/20 14:29) unknown levofloxacin [From Levaquin] Allergy (Verified 02/26/20 14:29) Hives atorvastatin [From Lipitor] Adverse Reaction (Mild, Verified 02/26/20 14:29) Muscle pains adhesive tape Adverse Reaction (Verified 02/26/20 14:29) Itching amoxicillin [From Augmentin] Adverse Reaction (Verified 02/26/20 14:29) Diarrhea clavulanic acid [From Augmentin] Adverse Reaction (Verified 02/26/20 14:29) Diarrhea lorazepam [From Ativan] Adverse Reaction (Verified 02/26/20 14:29) Other Medications to take at Discharge ALPRAZolam [Xanax] 0.25 - 0.5 tab PO Q12H PRN PRN 02/19/16 Aspirin E.C. [Ecotrin] 81 mg PO DAILY@0800 02/19/16 Atorvastatin Calcium [Lipitor] 80 mg PO QHS 02/19/16 Insulin Aspart [Novolog Flexpen] 8 units SC BREAKFAST 02/19/16 Insulin Glargine,Hum.rec.anlog [Lantus] 10 unit SQ QHS 02/19/16 Pantoprazole Sodium [Protonix] 40 mg PO DAILY 02/19/16 cholecalciferol (vitamin D3) 125 mcg (5,000 unit) capsule 5,000 unit PO DAILY 03/06/18 dndjcfzv-fbw-saogh acid 0.4 mg-lycopene 300 mcg-lutein 250 mcg tablet 1 tab PO DAILY 03/06/18 vitamins A,C,B-brdb-selaku 14,320 unit-226 mg-200 unit capsule 1 cap PO DAILY cap 03/06/18 albuterol sulfate 90 mcg/actuation aerosol inhaler 2 puff INHALATION Q4H PRN #18 g 11/22/18 metoprolol tartrate 25 mg tablet 25 mg PO BID #180 tab 05/08/19 fluticasone furoate 200 mcg-vilanterol 25 mcg/dose inhalation powder 1 inh INHALATION DAILY #60 ea 09/12/19 umeclidinium 62.5 mcg/actuation blister powder for inhalation 1 inh INHALATION QDAY #30 ea 09/12/19 clopidogrel 75 mg tablet 75 mg PO DAILY #90 tab 10/29/19 potassium chloride 20 mEq tablet,extended release 20 meq PO BID #180 tab 10/31/19 ferrous sulfate 325 mg (65 mg iron) tablet 325 mg PO DAILY 12/17/19 pumpkin seed extract-soy germ 300 mg capsule 1 cap PO DAILY cap 12/17/19 Citalopram [Celexa] 20 mg PO DAILY 02/26/20 Latanoprost 0.005% [Xalatan Opthalmic] 1 drp EACH EYE QHS 02/26/20 Levothyroxine [Synthroid] 25 mcg PO DAILY 02/26/20 Lisinopril 20 mg PO DAILY 02/26/20 Loratadine 10 mg PO DAILY 02/26/20 Furosemide 40 mg PO BID #0 02/28/20 Primary Care Physician: Chiara Zee MD [Primary Care Provider] - Please follow up with your Primary Care Physician in: 3-5 days Test Results: Test results from this visit will be discussed in further detail at your follow- up appointment, if applicable. Please Follow Up With: Emanuel Vela MD When: 2-4 weeks
--- NOTE | 2020-02-28 13:15 | CASEMGMT ---
RN CM assessment: Face to Face with patient for initial transition planning/care coordination assessment. RN CM introduced self and role at [facility], pt voices understanding and consents to assessment at this time. Pt is sitting up in bed in no distress at this time. Pt is currently on 2L nc and states this is what she wears at home. Pt is A/Ox4 at this time and answers all questions appropriately at this time. Care providers, pharmacy, and demographics verified at this time. Presentation: Pt c/o increasing SOB w/ sx's slowly progressing over the past month. Admitting dx: Acute exacerbation CHF PCP: Stephy Specialists: Dane cardio; Bassampulchristian; Adriana nephgerman Preferred [facility]acy: [facility] Insurance: [facility] A/B, AAR Prescription Benefit: Yes Living Will/HPOA: Pt has LW/HPOA and is aware that they are not on file at [facility] at this time. Pt states her daughter, Janel Nye, is HPOA. LNOK: Janel Nye, daughter/HPOA; Kapil Nye, son-in-law Living Arrangements: Pt states lives with alone in 1 story apt with no steps and states no concerns at home at this time. Pt states is mostly independent with ADL's but daughter/son-in-law assist with whatever she needs. Pt states daughter does housekeeping and gets groceries for her. Transportation: Pt states family drives and states no transportation concerns at this time. DME/HHC: Pt states has the following DME: shower chair, grab bars, raised toilet seat, rollator, bipap, and 2L home oxygen continuous thru [employer]. Pt states no need for any further DME at this time. Pt states no hx of HHC or SNF in the past but states is interested in HHC at this time for SN, PT/OT. Pt states no preference for HHC and is aware that this RN CM will not know until Sunday about HHC accepting, pt voices understanding and states for this RN CM to call daughter, Janel, with acceptance. Order placed and message left with [facility] at this time for pt referral. Pt states no concerns with going home at time of discharge. Pt states is retired. Pt states does not smoke cigarettes or drink ETOH. Pt states no further concerns/needs at this time. CM to follow for any further discharge planning/needs. Advised pt to ask for CM if any further questions/concerns/needs arise, voices understanding. Pt Goal: Home w/ HHC Plan: Home w/ HHC Marline SHERWOOD CM
--- NOTE | 2020-02-28 13:49 | DS.PCM_ITS ---
Discharge Date and Diagnosis Date of Admission: 02/26/20 Date of Discharge: 02/28/20 - Secondary Discharge Diagnosis Chronic Problems: Chronic Problems (Last Reviewed 02/26/20 @ 17:[address] Zuleyka Euceda DO) Adult BMI 40.0-44.9 kg/sq m (Chronic) Restrictive lung disease (Chronic) Left bundle-branch block, unspecified (Chronic) Atherosclerosis of coronary artery bypass graft without angina pectoris (Chronic) CABG X 2, 2002; MARGIE (obstructive sleep apnea) (Chronic) Dyspnea (Chronic) COPD (chronic obstructive pulmonary disease) (Chronic) Status post transcatheter aortic valve replacement (TAVR) using bioprosthesis (Chronic ~01/31/16) 26mm Sapian S3 Valve @ [facility] 01/31/16 Type 2 diabetes mellitus (Chronic) S/P CABG x 2 (Chronic ~2002) Esophageal abnormality (Chronic) Carotid artery disease (Chronic) S/P left carotid endarterectomy Hospital Course and Treatment Imaging Results: Clinical Impression(s) from Imaging Studies Chest X-Ray 02/26/20 15:40 IMPRESSION: Mild congestive heart failure. Electronically Signed: Alfredo Nuñez MD at 16:28 EST Tel , Service support , Echo: Interpretation Summary Normal LV size. Severe concentric left ventricular hypertrophy. The estimated ejection fraction is 45 %. Septal motion consistent with IVCD. Stage 2 diastolic dysfunction. Pulmonary artery systolic pressure is 37 mmHg. Contrast injection was performed. Stress Test Report Pharmacologic myocardial perfusion stress test. 80-year-old lady with a history of coronary artery bypass surgery status post a ortic valve replacement and abnormal cardiac enzymes. Stress protocol: Resting EKG demonstrates normal sinus rhythm with a rate of 75 bpm and left bundle branch block pattern noted. 0.4 mg of regadenoson was infused per usual protocol followed by Intravenous saline flush injection continuous EKG monitoring was performed. The maximum heart rate attained was 86 bpm which was 60% of maximum predicted heart rate. The maximum workload was 1 metabolic equivalent. At rest left bundle branch block pattern was noted throughout. At peak infusion a similar pattern was noted. The resting blood pressure was 185/78 with a final blood pressure of 178/74 mmHg. Myocardial perfusion protocol. 15.0 mCi of technetium 99m sestamibi was injected at rest. 0.4 mg of regadenoson was infused per usual protocol. At peak infusion 44.0 mCi of technetium 99m sestamibi was injected stress images were obtained stress and rest images were reconstructed and compared in the short axis vertical long horizontal long axis. Gated images were also obtained Perfusion SPECT analysis: Review of the stress images demonstrate mild reduction of uptake noted in the mid anterior wall on the stress images with a similar reduction on the resting images. The rest of the santa appear to be normally perfused. Anterior breast wall attenuation is suggested to the left bundle branch block pattern could also be affecting interpretation in this area. No obvious ischemia is noted. Gated SPECT analysis: The gated ejection fraction was noted to be 36% with a left bundle branch block pattern. Inaccuracies may be present. Conclusion: Pharmacologic myocardial perfusion stress test with no obvious ischemia noted. Anterior breast wall attenuation and left bundle branch block pattern noted. Consults: Cardiology Operations: None Procedures: 2-D Echocardiogram, Stress test Summary of Care Provided: Per HPI: Ms Henderson is a 80 year old F with a past medical history of CAD status post CABG x2 in 2002, aortic valve stenosis status post TAVR in 2016, left carotid stenosis, hypertension, HPL, DM-2, MARGIE, COPD, depression, and anxiety who presented to the emergency department at [facility] on 02/26/2020 with worsening shortness of breath. She reports that she has had worsening shortness of breath for approximately a month now but it has gotten worse recently she is unable to lie flat and has been sleeping on 3 pillows. She is using oxygen continuously now. She denies fever, chills, or sick contacts. She has been wearing a mask if she does go out. She was seen by Dr. Banegas's nurse practitioner approximately 2 days ago and was prescribed prednisone and doxycycline for possible COPD exacerbation but has not started taking the doxycycline as of yet. She took her first dose of prednisone yesterday. She states that her shortness of breath is considerably worse with exertion and she does complain of some intermittent left-sided chest pain that does not radiate and is not associated with diaphoresis nausea or vomiting. She is afebrile, her heart rate is in the 80s, she is hypertensive with systolic blood pressures in the 170s to 180s, she is tachypneic with respiratory rates in the mid 20s and she is on 3 L nasal cannula with oxygen saturation of 98%. Her baseline oxygen requirement is 2 L. She wears BiPAP 17/ at night with an O2 bleed and is compliant with this. She follows with Dr. Vela for cardiology and was last seen in November. An echo was ordered at that time but the patient was afraid of heather coronavirus and has not obtained this yet. Her labs shows a mild white count elevation, a chronic stable anemia, mild hyponatremia with a sodium of 133, lactic acid in the normal range at 1.5, and intermediate to her troponin at 0.213 and a markedly elevated BNP at 1113.8. The patient states she has been compliant with her Lasix and watching her sodium intake. When asked what she had for [place] she states she ate ham. Her EKG shows a chronic left bundle branch block no other changes noted. Her chest x-ray is consistent with congestive heart failure Hospital Course: 1. Acute on chronic hypoxic respiratory failure secondary to decompensated diastolic CHF/elevated troponin/aortic stenosis status post TAVR 2015/left carotid disease/HTN/HLD/CAD status post CABG -Continue with Lasix for diuresis, she did have a history of nephrectomy therefore we will closely monitor her creatinine -Echo with an EF of 45% and pulmonary artery pressure 37 mmHg. She also has stage II diastolic dysfunction with severe concentric left ventricular hypertrophy, she did have a previous heart cath at [facility] in 2015 which had a proximal 75% stenosis of her circumflex iliacs -Cardiology was consulted, appreciate recommendations -Continue with aspirin and Plavix -He does have a known left bundle branch block, no new ischemic changes on her EKG, repeat troponins decreased -Blood pressure stable, can continue with her home blood pressure medications -Continue statin -Only recommendation at this time after stress test and echo was increasing her home Lasix to 40 mg p.o. twice daily. She did well with aggressive diuresis here at 40 mg IV twice daily. On the day of discharge her creatinine was 1.18 therefore I do recommend that she follow-up with her PCP this week to have an outpatient BMP to monitor her renal function. It would not be unreasonable that if her creatinine had continued to climb to back off on her Lasix to 20 mg p.o. twice daily however given the findings on the echo as well as a stress test she does need to be on Lasix to the sacrifice of some of her kidney function. Dell iscussed with her the plan for discharge and she expressed understanding of the risk and benefits of going home and would like to go home today. Her home medications were continued where appropriate. 2. DM 2 -Continue with her home insulin -Accu-Cheks AC at bedtime, will make adjustments as necessary to her insulin 3. COPD -She is on a baseline of 2 L nasal cannula at home which is what she is currently on here -Currently not in exacerbation -Continue with her home inhalers, her doxy and prednisone were held on admission, and were discontinued on discharge as she does not currently have a COPD exacerbation and it looks like her oxygen issues and her shortness of breath were secondary to decompensated diastolic CHF 4. Hypothyroidism -Stable -Continue with Synthroid 5. GERD -Stable -Continue with PPI 6. Anxiety/depression -Stable -Continue with her Xanax and citalopram - Physical Exam Vitals/I&O's: Vital Signs Temp Pulse Resp BP Pulse Ox 97.9 F 65 15 126/74 H 98 02/28/20 10:00 02/28/20 11:05 02/28/20 10:00 02/28/20 10:13 02/28/20 10:00 Oxygen Flow Rate (L/min) 2 Oxygen Delivery Method Nasal Cannula Weight: 222 lb 7.143 oz Body Mass Index (BMI) 42.2 Intake and Output for Last 24 Hours 02/26/20 02/27/20 02/28/20 23:59 23:59 23:59 Intake Total 200 / 200 740 / 960 700 / 700 Output Total 1200 / 1200 1000 / 1600 1000 / 1000 Balance -1000 / -1000 -260 / -640 -300 / -300 General: Alert, Oriented x3, Cooperative, No apparent distress HEENT: Atraumatic, PERRLA, EOMI, Normocephalic Oral: Moist Mucosa Neck: Supple, No JVD Lungs: Normal air movement, No rhonchi, No wheeze, No rales, Diminished Cardiovascular: Regular rate, Regular Rhythm, Normal S1, Normal S2, No murmurs Abdomen: Soft, Non Tender, Non-Distended, No Hepato-splenomegaly Extremities: No edema, Capillary Refill Less than 3 Seconds Skin: No rashes, No breakdown Neurological: Neuro grossly intact, Sensory exam intact to light touch and pain Psych/Mental Status: Normal Affect, Appropriate Microbiology Past 72 Hours 02/26/20 14:57 Mucosa - Nose SARS-CoV-2 Antigen (Rapid) - Final Laboratory Results 02/27/20 17:02: POC Glucose 159 H 02/27/20 20:29: POC Glucose 177 H 02/28/20 06:05: WBC 8.2, RBC 3.55 L, Hgb 9.5 L, Hct 30.9 L, MCV 87.0, MCH 26.8 L , MCHC 30.7 L D, RDW Std Deviation 48.5 H, RDW Coeff of [place] 15.0 H, Plt Count 220, MPV 9.1, Immature Gran % (Auto) 0.500, Neut % (Auto) 64.2, Lymph % (Auto) 21.8, [place] % (Auto) 11.3 H, Eos % (Auto) 1.7, Baso % (Auto) 0.5, Absolute Neuts (auto) 5.3, Absolute Lymphs (auto) 1.79, Nucleated RBC % 0 02/28/20 06:05: Sodium 134 L, Potassium 3.4 L, Chloride 97 L, Carbon Dioxide 29.0, Anion Gap 8, BUN 28 H, Creatinine 1.18 H, Estim Creat Clear Calc 29.65, Est GFR (MDRD) Af Amer 57 L, Est GFR (MDRD) Non-Af 47 L, BUN/Creatinine Ratio 23.7 H, Glucose 112 H, Calcium 8.7 02/28/20 06:37: POC Glucose 126 H 02/28/20 12:42: POC Glucose 176 H Current Medications Acetaminophen (Acetaminophen 325 Mg Tablet) 650 mg PO Q6H PRN PRN PRN Reason: Pain Score 1-10/Temp > 100.7 F Last Admin: 02/28/20 10:15 Dose: 650 mg Documented by: Al Hydroxide/Mg Hydroxide (Mag Hydrox/Al Hydrox/Simeth 30 Ml Udc) 30 ml PO Q6H PRN PRN PRN Reason: Gastric Burning Albuterol Sulfate (Albuterol 2.5 Mg/3 Ml Vial.Neb.) 2.5 mg INHALATION Q2H PRN PRN PRN Reason: SOB/Wheezing Last Admin: 02/26/20 17:52 Dose: 2.5 mg Documented by: Albuterol/Ipratropium (Ipratropium/Albuterol Sulfate 3 Ml Ampul.Neb) 3 ml INHALATION Q6HWA.RT [facility] Last Admin: 02/28/20 06:46 Dose: 3 ml Documented by: Alprazolam (Alprazolam 0.25 Mg Tablet) 0 mg PO Q12H PRN PRN PRN Reason: ANXIETY Last Admin: 02/27/20 20:19 Dose: 0.25 mg Documented by: Aspirin (Aspirin E.C. 81 Mg Tablet) 81 mg PO DAILY@0800 [facility] Last Admin: 02/28/20 05:02 Dose: 81 mg Documented by: Atorvastatin Calcium (Atorvastatin Calcium 80 Mg Tablet) 80 mg PO QHS [facility] Last Admin: 02/27/20 20:34 Dose: 80 mg Documented by: Budesonide (Budesonide Respules 0.5 Mg/2 Ml Ampul.Neb.) 0.5 mg INHALATION Q12H.RT [facility] Last Admin: 02/28/20 06:46 Dose: 0.5 mg Documented by: Citalopram Hydrobromide (Citalopram 20 Mg Tablet) 20 mg PO DAILY [facility] Last Admin: 02/28/20 10:13 Dose: 20 mg Documented by: Clopidogrel Bisulfate (Clopidogrel Bisulfate 75 Mg Tablet) 75 mg PO DAILY [facility] Last Admin: 02/28/20 05:02 Dose: 75 mg Documented by: Docusate Sodium (Docusate Sodium 100 Mg Capsule) 100 mg PO BID PRN PRN PRN Reason: Constipation Enoxaparin Sodium (Enoxaparin 40 Mg/0.4 Ml Syringe) 40 mg SC DAILY [facility] Last Admin: 02/28/20 10:13 Dose: Not Given Documented by: Ferrous Sulfate (Ferrous Sulfate 325 Mg Tablet) 325 mg PO DAILYCM [facility] Last Admin: 02/28/20 10:13 Dose: 325 mg Documented by: Furosemide (Furosemide 40 Mg/4 Ml Vial) 40 mg IV BID@1000,1800 [facility] Last Admin: 02/28/20 10:13 Dose: 40 mg Documented by: Guaifenesin (Guaifenesin 10 Ml Udc (200mg/10ml)) 20 ml PO Q4H PRN PRN PRN Reason: COUGH Insulin Glargine (Insulin Glargine 100 Units/Ml Pen) 10 units SC QHS [facility] Last Admin: 02/27/20 20:30 Dose: Not Given Documented by: Insulin Human Lispro (Insulin Lispro 100 Unit/Ml Insuln.Pen) 8 unit SC BREAKFAST [facility] Last Admin: 02/28/20 10:11 Dose: Not Given Documented by: Latanoprost (Latanoprost 0.005% 1 Bottle) 1 drop EACH EYE QHS [facility] Last Admin: 02/27/20 20:34 Dose: 1 drop Documented by: Levothyroxine Sodium (Levothyroxine 25 Mcg Tablet) 25 mcg PO DAILY@0600 [facility] Last Admin: 02/28/20 05:02 Dose: 25 mcg Documented by: Lisinopril (Lisinopril 20 Mg Tablet) 20 mg PO DAILY [facility] Last Admin: 02/28/20 05:01 Dose: 20 mg Documented by: Loratadine (Loratadine 10 Mg Tablet) 10 mg PO DAILY [facility] Last Admin: 02/28/20 10:13 Dose: 10 mg Documented by: Melatonin (Melatonin 3 Mg Tablet) 3 mg PO QHS PRN PRN PRN Reason: INSOMNIA Last Admin: 02/27/20 22:12 Dose: 3 mg Documented by: Metoprolol Tartrate (Metoprolol Tartrate 25 Mg Tablet) 25 mg PO BID [facility] Last Admin: 02/28/20 10:13 Dose: 25 mg Documented by: Ondansetron HCl (Ondansetron 4 Mg/2 Ml Vial) 4 mg IV Q8H PRN PRN PRN Reason: NAUSEA/VOMITING Pantoprazole Sodium (Pantoprazole Sodium 40 Mg Tablet) 40 mg PO DAILY [facility] Last Admin: 02/28/20 05:01 Dose: 40 mg Documented by: Sodium Chloride (0.9% Saline Lock 10 Ml Syringe) 10 - 40 ml IV UD PRN PRN Reason: SALINE FLUSH Last Admin: 02/28/20 10:21 Dose: 10 ml Documented by: Discharge Activity: Return to Normal Activity Call your doctor if you observe: Fever of 101 or Higher, Shortness of breath, Dizziness, Fainting spells, Swelling in the ankles, Chest pain, Increased palpitations (irregular heartbeat) Home Medications: Medications to take at Discharge ALPRAZolam [Xanax] 0.25 - 0.5 tab PO Q12H PRN PRN 02/19/16 Aspirin E.C. [Ecotrin] 81 mg PO DAILY@0800 02/19/16 Atorvastatin Calcium [Lipitor] 80 mg PO QHS 02/19/16 Insulin Aspart [Novolog Flexpen] 8 units SC BREAKFAST 02/19/16 Insulin Glargine,Hum.rec.anlog [Lantus] 10 unit SQ QHS 02/19/16 Pantoprazole Sodium [Protonix] 40 mg PO DAILY 02/19/16 cholecalciferol (vitamin D3) 125 mcg (5,000 unit) capsule 5,000 unit PO DAILY 03/06/18 gyusefli-rgp-vgtnm acid 0.4 mg-lycopene 300 mcg-lutein 250 mcg tablet 1 tab PO DAILY 03/06/18 vitamins A,C,Q-olim-cliana 14,320 unit-226 mg-200 unit capsule 1 cap PO DAILY cap 03/06/18 albuterol sulfate 90 mcg/actuation aerosol inhaler 2 puff INHALATION Q4H PRN #18 g 11/22/18 metoprolol tartrate 25 mg tablet 25 mg PO BID #180 tab 05/08/19 fluticasone furoate 200 mcg-vilanterol 25 mcg/dose inhalation powder 1 inh INHALATION DAILY #60 ea 09/12/19 umeclidinium 62.5 mcg/actuation blister powder for inhalation 1 inh INHALATION QDAY #30 ea 09/12/19 clopidogrel 75 mg tablet 75 mg PO DAILY #90 tab 10/29/19 potassium chloride 20 mEq tablet,extended release 20 meq PO BID #180 tab 10/31/19 ferrous sulfate 325 mg (65 mg iron) tablet 325 mg PO DAILY 12/17/19 pumpkin seed extract-soy germ 300 mg capsule 1 cap PO DAILY cap 12/17/19 Citalopram [Celexa] 20 mg PO DAILY 02/26/20 Latanoprost 0.005% [Xalatan Opthalmic] 1 drp EACH EYE QHS 02/26/20 Levothyroxine [Synthroid] 25 mcg PO DAILY 02/26/20 Lisinopril 20 mg PO DAILY 02/26/20 Loratadine 10 mg PO DAILY 02/26/20 Furosemide 40 mg PO BID #0 02/28/20 Primary Care Physician: Chiara Zee MD [Primary Care Provider] - Please follow up with your Primary Care Physician in: 3-5 days Please Follow Up With: Emanuel Vela MD When: 2-4 weeks Please Follow Up With: Chiara Zee MD Patient Instructions: What Is Heart Failure?, Heart Failure: Making Changes to Your Diet, Heart Failure: Medications to Help Your Heart Disposition: Home Minutes spent on discharge:: 35 Patient Condition:: Stable Medical Necessity - Tobacco Use Smoking Status: Former smoker Meaningful Use Info Meaningful Use Diagnoses (Choose all that apply): None applicable Inpatient E&M: 48904 Disch Hosp
--- NOTE | 2020-02-28 14:33 | NURSING ---
Reviewed discharge instructions over the phone with patient's daughter, Janel. Questions answered.
--- NOTE | 2020-03-01 09:22 | CASEMGMT ---
Per Ashwini at [facility], they can take pt at this time. Pt had wanted this RN CM to call her daughter, Janel, to update but daughter did not answer and does not have VM set up at this time. Call to pt to update and message left with her for the same to call this RN CM back if any further questions. SStalex SHERWOOD CM
--- NOTE | 2020-03-01 14:38 | CASEMGMT ---
KAELA SANDS Discharge F/U Phone Call LACE: 10 Strata: 3 Discharge date: 02/28/20 Call date: 03/01/20 Call time: [id number] Admission dx: Acute exacerbation CHF Pt states has been doing 'ok' since discharge. Pt is updated on [facility] at this time, voices understanding. Pt states no further questions regarding d/c instructions/medications at this time. Pt states is planning to make f/u appt's today with his PCP. Pt states no suggestions for [facility] at this time and voices no further questions/concerns/needs at this time. SStaten KAELA SANDS
== END 2020-02-28 15:27 | disposition home or self-care (01) | DRG 291 ==
LOC: ED 16:51 → PCU 17:01
PROVIDERS: Admitting Provider Internal Medicine; Emergency Provider Emergency Medicine; PCP Family Medicine; Visit Provider Family Medicine
DX: I11.0 Hypertensive heart disease with heart failure (principal); J96.21 Acute and chronic respiratory failure with hypoxia; E87.1 Hypo-osmolality and hyponatremia; I50.33 Acute on chronic diastolic (congestive) heart failure; Z95.2 Presence of prosthetic heart valve; J44.9 Chronic obstructive pulmonary disease, unspecified; I44.7 Left bundle-branch block, unspecified; Z95.1 Presence of aortocoronary bypass graft; Z99.81 Dependence on supplemental oxygen; Z79.4 Long term (current) use of insulin; Z79.51 Long term (current) use of inhaled steroids; Z79.899 Other long term (current) drug therapy; Z87.891 Personal history of nicotine dependence; Z79.02 Long term (current) use of antithrombotics/antiplatelets; I65.22 Occlusion and stenosis of left carotid artery; Z90.5 Acquired absence of kidney; E78.5 Hyperlipidemia, unspecified; G47.33 Obstructive sleep apnea (adult) (pediatric); E11.9 Type 2 diabetes mellitus without complications; E03.9 Hypothyroidism, unspecified; K21.9 Gastro-esophageal reflux disease without esophagitis; F32.9 Major depressive disorder, single episode, unspecified; F41.9 Anxiety disorder, unspecified; I25.10 Atherosclerotic heart disease of native coronary artery without angina pectoris
CPT/HCPCS: 36415; 71045; 78452; 80048; 80053; 80061; 82962; 83605; 83735; 83880; 84100; 84443; 84484; 85025; 87040; 87426; 93005; 93017; 93306; 94640; 97110; 97162; 97166; 97530; 99251; 99285; A9500; Q9957; A4216; C8929; G0463; J1940; J2785

== ENCOUNTER 2020-03-05 12:26 | Outpatient (RCR) | payer MEDICARE, OTHER, SELFPAY ==
[2020-02-26 17:29] VITALS: BMI 42.2
[2020-03-05 16:40] LABS: Anion Gap 8 (5-15); BUN 45 mg/dL (7-18); BUN/Creat Ratio 28.7 RATIO (10-20); Calcium,Total 9.3 mg/dL (8.5-10.1); Chloride 101 mmol/L (98-107); Creatinine, Serum 1.57 mg/dL (0.55-1.02); EST Glomerular Filtration Rate 34 mL/min (>60); Est Glom Filt Rate - Afr Amer 41 mL/min (>60); Glucose 119 mg/dL (74-106); Sodium Level 135 mmol/L (136-145)
== END 2020-03-05 18:00 | disposition home or self-care (01) ==
LOC: HHLAB 12:26
PROVIDERS: PCP Family Medicine; Referring Provider Family Medicine; Visit Provider Family Medicine
DX: I11.0 Hypertensive heart disease with heart failure (principal); I50.31 Acute diastolic (congestive) heart failure; J44.9 Chronic obstructive pulmonary disease, unspecified
CPT/HCPCS: 80048

== ENCOUNTER → 2020-03-30 14:45 | Outpatient (CLI) | payer MEDICARE, OTHER, SELFPAY ==
[2020-02-26 17:29] VITALS: BMI 42.2
[2020-03-30 18:25] LABS: Hemoglobin A1c 6.4 % (3.8-5.6)
[2020-03-30 18:26] LABS: Anion Gap 9 (5-15); BUN 24 mg/dL (7-18); BUN/Creat Ratio 21.4 RATIO (10-20); Calcium,Total 9.2 mg/dL (8.5-10.1); Chloride 101 mmol/L (98-107); Creatinine, Serum 1.12 mg/dL (0.55-1.02); EST Glomerular Filtration Rate 50 mL/min (>60); Est Glom Filt Rate - Afr Amer 61 mL/min (>60); Glucose 104 mg/dL (74-106); Potassium 4.3 mmol/L (3.5-5.1); Sodium Level 135 mmol/L (136-145)
[2020-03-30 18:27] LABS: Microalbumin,Random Urine 65.1 mg/L (NO RANGE EST.); Microalbumin:Creatinine Ratio 152.1 mg/g CRE (<30 mg/g CRE)
== END ==
PROVIDERS: PCP Family Medicine; Referring Provider Family Medicine; Visit Provider Family Medicine
DX: E11.9 Type 2 diabetes mellitus without complications (principal)
CPT/HCPCS: 36415; 80048; 82043; 82570; 83036

== ENCOUNTER → 2020-09-24 15:50 | Outpatient (CLI) | payer MEDICARE, OTHER, SELFPAY ==
[2020-09-07 07:59] VITALS: BMI 41.8
[2020-09-24 17:39] LABS: Hematocrit 30.7 % (37-47); Mean Corp Hgb Conc 32.6 g/dL (32-36); Mean Corpuscular Hgb 28.9 pg (27.0-32.0); Mean Corpuscular Volume 88.7 fL (81-99); Mean Platelet Vol. 10.1 fl (6.2-12.0); Platelet Count 243 K/mm3 (150-450); RBC Distribution Width CV 13.3 % (11.6-14.6); RBC Distribution Width SD 43.6 fl (35.1-43.9); Red Blood Count 3.46 M/mm3 (4.2-5.4)
[2020-09-24 18:00] LABS: Protein, Urine (Random) 9.3 mg/dL (<11.9); Protein:Creat Ratio 204 mg/g CRE (0-200)
[2020-09-24 18:03] LABS: Albumin, Serum 3.6 g/dL (3.2-5.0); BUN 46 mg/dL (7-18); BUN/Creat Ratio 35.9 RATIO (10-20); Chloride 103 mmol/L (98-107); Creatinine, Serum 1.28 mg/dL (0.55-1.02); EST Glomerular Filtration Rate 43 mL/min (>60); Est Glom Filt Rate - Afr Amer 52 mL/min (>60); Glucose 102 mg/dL (74-106); Phosphorus 3.5 mg/dL (2.5-4.9); Sodium Level 137 mmol/L (136-145)
[2020-09-27 09:04] LABS: PTHIN 46.6 pg/mL (18.4-80.1)
== END ==
PROVIDERS: PCP Family Medicine; Referring Provider Internal Medicine Nephrology; Visit Provider Internal Medicine Nephrology
DX: N39.0 Urinary tract infection, site not specified (principal); N18.30 Chronic kidney disease, stage 3 unspecified
CPT/HCPCS: 36415; 80069; 82306; 82570; 83970; 84156; 85027

== ENCOUNTER → 2020-10-25 14:37 | Outpatient (CLI) | payer MEDICARE, OTHER, SELFPAY ==
[2020-10-25 18:53] LABS: Anion Gap 9 (5-15); BUN 37 mg/dL (7-18); BUN/Creat Ratio 27.4 RATIO (10-20); Calcium,Total 9.3 mg/dL (8.5-10.1); Chloride 99 mmol/L (98-107); Creatinine, Serum 1.35 mg/dL (0.55-1.02); EST Glomerular Filtration Rate 40 mL/min (>60); Est Glom Filt Rate - Afr Amer 49 mL/min (>60); Glucose 112 mg/dL (74-106); Sodium Level 135 mmol/L (136-145)
== END ==
PROVIDERS: PCP Family Medicine; Visit Provider Family Medicine
DX: E11.9 Type 2 diabetes mellitus without complications (principal)
CPT/HCPCS: 36415; 80048

== ENCOUNTER 2021-04-22 14:26 | Outpatient (CLI) | payer MEDICARE, OTHER, SELFPAY ==
[2021-04-22 18:23] LABS: AST(SGOT) 29 U/L (15-37); Alanine Aminotransfer ALT/SGPT 26 U/L (13-56); Albumin, Serum 3.6 g/dL (3.2-5.0); Alkaline Phosphatase 113 U/L (45-117); Anion Gap 10 (5-15); BUN 32 mg/dL (7-18); BUN/Creat Ratio 26.7 RATIO (10-20); Calcium,Total 9.5 mg/dL (8.5-10.1); Chloride 99 mmol/L (98-107); Cholesterol 102 mg/dL (200); EST Glomerular Filtration Rate 46 mL/min (>60); Est Glom Filt Rate - Afr Amer 56 mL/min (>60); Glucose 104 mg/dL (74-106); High Density Lipoprotein 56 mg/dL; Potassium 3.6 mmol/L (3.5-5.1); Protein, Total 7.6 g/dL (6.4-8.2); Sodium Level 134 mmol/L (136-145); Triglycerides 39 mg/dL; Very Low Density Lipoprotein 8 mg/dL (5-40)
== END 2021-04-22 23:59 | disposition home or self-care (01) ==
LOC: MFPLAB 14:35
PROVIDERS: PCP Family Medicine; Referring Provider Family Medicine; Visit Provider Family Medicine
DX: E11.9 Type 2 diabetes mellitus without complications (principal)
CPT/HCPCS: 36415; 80048; 80061; 80076

== ENCOUNTER 2021-05-07 01:33 | Emergency (ER) | payer MEDICARE, OTHER, SELFPAY ==
[2021-05-07] VITALS (11 sets, daily range): BP systolic 89–124; BP diastolic 34–92; PULSE 66–75; RESP 16–20; TEMP 36.3–36.4; O2SAT 97–100; BMI 43.0
--- NOTE | 2021-05-07 01:48 | CT_ITS ---
STUDY: CT ABDOMEN AND PELVIS WITHOUT CONTRAST REASON FOR EXAM: Female, 81 years old. Pain -- lower abd pain, bloody stools RADIATION DOSAGE (If Supplied By Facility): CTDIvol = ( 23.73 ) mGy, DLP = ( 1233.18 ) mGycm TECHNIQUE: Transaxial images were obtained from the dome of the diaphragm to the symphysis pubis without oral contrast, and without intravenous contrast. Sagittal and coronal images were reconstructed. Individualized dose optimization techniques were used for this CT. COMPARISON: None. FINDINGS: There is postsurgical or posttraumatic change within the left chest with a small focus of fatty infiltration of the pleura. Sternotomy wires are seen midline. There is a visualized stent repair of the aortic valve compatible with Tavr. There is postoperative change of the mitral valve. Normal liver. Normal gallbladder and extrahepatic biliary system. Normal spleen. Normal pancreas. There is minimal thickening of the left adrenal gland compared to the right. Normal right kidney. The left kidney is absent. There is a small focal radiopaque density within the stomach which may represent an undigested pill. Normal small intestine. There is a mild amount of stool in the colon. Within the rectum there is a focus of rounded hyperdensity in the lumen that may represent a polyp or potentially a small hemorrhagic follicle or follow-up with retained contrast from a prior procedure. There is wall thickening and edema and trace focus of hyperdensity. There is non-visualization of the appendix. The aorta is densely calcified. The lumen of the aorta at the level of bifurcation measures 6.7 mm. This calcifications indicative of the celiac sprue as enteric artery. Normal inferior vena cava. Normal retroperitoneum. There are gas bubbles in the bladder which may be related to recent catheterization. There is atrophy of the uterus. Patient''s abdominal wall leans towards the left with a draping of the abdominal structures and fat overlying the iliac crests. There are diffuse degenerative changes of the visualized lumbar spine. There is multilevel spondylosis. At L3-L4, L4-L5 there is disc space narrowing vacuum phenomenon and broad disc osteophyte facet arthropathy moderate neural foraminal narrowing [id number] central stenosis. CT/Abdomen/Pelvis without Cont IMPRESSION: There is mild wall thickening of the rectum which may represent proctitis. There is a small focus of 8.1 mm rounded hyperdensity with a gas center, within the lumen of the rectum which may represent a hyperdense polyp, or polyp with retained contrast from prior procedure or hemorrhage. Recommend direct visualization. There is minimal diverticulosis no diverticulitis. Degenerative change of the thoracolumbar spine. Status post left nephrectomy. Minimal asymmetry of the adrenal glands which likely represents hyperplasia. Small amount of gas within the bladder suggesting recent catheterization. Densely calcified aorta with mild infrarenal stenosis. Status post sternotomy. Status post Tavr. Electronically Signed: Stephanie Garcia MD at 3:29 EST ,
--- NOTE | 2021-05-07 01:50 | ED.VIS.GI ---
HPI HPI - GI History of Present Illness Chief Complaint: GI Bleed Informant: patient and family Narrative Narrative: Brought by EMS from home increased abdominal cramping this evening with 3 bloody stools. Reports would have some diarrhea intermittently over the past week. No recent antibiotics or no fevers. This evening with cramping had bloody stools. Patient aspirin Plavix for history of two-vessel bypass. History of CHF. Reports no colonoscopies in the past. Had Cologuard testing. No history of diverticulitis. No urinary symptoms. States occasional lightheaded symptoms. States bright red blood in the commode. Patient is on iron for anemia. Reported had blood test 10 days ago in the doctor's office told it was normal. Unknown EF. However she is on Lasix twice a day. No other anticoagulants besides aspirin and Plavix. Prior similar symptoms: No PFSH PFSH Medical History (Updated 05/07/21 @ 04:[address] Danilo Fernandez, DO) Atherosclerosis of coronary artery bypass graft without angina pectoris CAD (coronary artery disease) Carotid artery disease COPD (chronic obstructive pulmonary disease) COPD exacerbation Depression Dyspnea Esophageal abnormality Esophagus, rupture Essential hypertension History of pneumothorax Left bundle branch block (LBBB) Left bundle-branch block, unspecified Left carotid artery stenosis Leg cramps Non-ST elevation (NSTEMI) myocardial infarction Nonrheumatic aortic (valve) stenosis MARGIE (obstructive sleep apnea) Paroxysmal supraventricular tachycardia by electrocardiogram (ECG) Sepsis Type 2 diabetes mellitus UTI (urinary tract infection) Home Medications alprazolam 0.25 - 0.5 tab PO Q12H PRN PRN 02/19/16 [History Last Taken 02/19/16 15:00] aspirin 81 mg PO DAILY@0800 02/19/16 [History Last Taken 02/26/20] insulin aspart U-100 8 units SC BREAKFAST 02/19/16 [History Last Taken 02/26/20] insulin glargine 10 unit SQ QHS 02/19/16 [History Last Taken 02/25/20] pantoprazole 40 mg PO DAILY 02/19/16 [History Last Taken 02/26/20] cholecalciferol (vitamin D3) 125 mcg (5,000 unit) capsule 5,000 unit PO DAILY 03/06/18 [History Last Taken 02/26/20] fjkacssp-vgg-lldcg acid 0.4 mg-lycopene 300 mcg-lutein 250 mcg tablet 1 tab PO DAILY 03/06/18 [History Last Taken Unknown] vitamins A,C,Z-kjrk-rhkefb 14,320 unit-226 mg-200 unit capsule 1 cap PO DAILY cap 03/06/18 [History Last Taken 02/26/20] ferrous sulfate 325 mg (65 mg iron) tablet 325 mg PO DAILY 12/17/19 [History Last Taken 02/26/20] citalopram 20 mg PO DAILY 02/26/20 [History Last Taken 02/26/20] latanoprost 1 drp EACH EYE QHS 02/26/20 [History Last Taken 02/25/20] levothyroxine 25 mcg PO DAILY 02/26/20 [History Last Taken 02/26/20] loratadine 10 mg PO DAILY 02/26/20 [History Last Taken 02/26/20] acetaminophen 500 mg tablet 500 mg PO Q6H PRN 04/06/20 [History Last Taken Unknown] albuterol sulfate 90 mcg/actuation aerosol inhaler 2 puff INHALATION Q4H PRN #18 g 01/12/21 [Rx Last Taken Unknown] fluticasone fur. 200 mcg-umeclid 62.5 mcg-vilant 25 mcg inhalat.powder 1 inh INHALATION DAILY #60 ea 03/23/21 [Rx Last Taken Unknown] atorvastatin 80 mg tablet 80 mg PO QHS #90 tab 05/02/21 [Rx Last Taken Unknown] clopidogrel 75 mg tablet 75 mg PO DAILY #90 tab 05/02/21 [Rx Last Taken Unknown] furosemide 40 mg tablet 40 mg PO BID #180 tab 05/02/21 [Rx Last Taken Unknown] lisinopril 20 mg tablet 20 mg PO DAILY #90 tab 05/02/21 [Rx Last Taken Unknown] metoprolol tartrate 25 mg tablet 25 mg PO BID #180 tab 05/02/21 [Rx Last Taken Unknown] potassium chloride 20 mEq tablet,extended release 20 meq PO BID #180 tab 05/02/21 [Rx Last Taken Unknown] Allergy/AdvReac Type Severity Reaction Status Date / Time Penicillins Allergy Mild unknown Verified 01/12/21 11:11 levofloxacin [From Levaquin] Allergy Hives Verified 01/12/21 11:11 atorvastatin [From Lipitor] AdvReac Mild Muscle Verified 01/12/21 11:11 pains adhesive tape AdvReac Itching Verified 01/12/21 11:11 amoxicillin [From Augmentin] AdvReac Diarrhea Verified 01/12/21 11:11 clavulanic acid AdvReac Diarrhea Verified 01/12/21 11:11 [From Augmentin] lorazepam [From Ativan] AdvReac Other Verified 01/12/21 11:11 Family History Mother Heart disease Father Heart disease Father Myocardial infarction Surgical History History of left-sided carotid endarterectomy History of nephrectomy History of tubal ligation 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 (~01/31/16) Social History Smoking Status: Former smoker second hand exposure: Yes alcohol intake: never substance use type: does not use caffeine: Yes Type: coffee what type of physical activity do you participate in: none seatbelt use: always do you feel safe at home: Yes ROS ROS ED Constitutional Constitutional ED: Denies chills, fever(s) or sweats Eyes Eyes: Denies change in vision ENT ENT ED: Denies dysphagia or sore throat Cardiovascular Cardiovascular: Denies chest pain, leg edema, palpitations or racing heartbeat Respiratory/Chest Respiratory/Chest: Denies cough, dyspnea or dyspnea on exertion Gastrointestinal Gastrointestinal: Reports abdominal pain and other Details: Bloody stools ; Denies diarrhea, nausea or vomiting Genitourinary Genitourinary ED: Denies dysuria, hematuria or urinary frequency Musculoskeletal Musculoskeletal: Denies back pain, extremity pain or neck pain Integumentary Denies rash or wounds Neurologic Neurologic: Denies headache(s), paresthesias or weakness EXAM Physical Exam Const Vital Signs: 05/07/21 01:34 05/07/21 04:08 05/07/21 04:30 Temperature 97.6 F L Temperature Source Temporal Pulse Rate 72 66 Respiratory Rate 16 19 H Blood Pressure 122/45 H 124/92 H 89/34 L Blood Pressure Mean 70 102 52 Blood Pressure Source Blood Pressure Position Blood Pressure Location Pulse Ox 100 98 Oxygen Delivery Method Nasal Cannula Nasal Cannula Oxygen Flow Rate (L/min) 2 2 05/07/21 04:37 05/07/21 04:46 05/07/21 05:02 Temperature Temperature Source Pulse Rate Respiratory Rate Blood Pressure 97/40 L 97/58 L 102/90 H Blood Pressure Mean 59 71 94 Blood Pressure Source Blood Pressure Position Blood Pressure Location Pulse Ox Oxygen Delivery Method Nasal Cannula Oxygen Flow Rate (L/min) 2 05/07/21 05:15 05/07/21 05:30 05/07/21 05:54 Temperature 97.4 F L Temperature Source Temporal Pulse Rate 75 Respiratory Rate 20 H Blood Pressure 92/68 98/38 L 91/47 L Blood Pressure Mean 76 58 61 Blood Pressure Source Monitor Blood Pressure Position Semi-Fowlers Blood Pressure Location Right Arm Pulse Ox 99 Oxygen Delivery Method Nasal Cannula Oxygen Flow Rate (L/min) 2 05/07/21 06:08 05/07/21 07:16 Temperature 97.5 F L 97.4 F L Temperature Source Temporal Pulse Rate 75 75 Respiratory Rate 20 H 17 Blood Pressure 106/42 L 100/41 L Blood Pressure Mean 63 60 Blood Pressure Source Monitor Blood Pressure Position Semi-Fowlers Blood Pressure Location Left Arm Pulse Ox 98 97 Oxygen Delivery Method Nasal Cannula Oxygen Flow Rate (L/min) 2 Positive well nourished and well developed General Appearance ED: well developed and NAD HEENT Reports moist mucous membranes normocephalic and atraumatic Eyes PERRL, EOMs intact bilaterally and conjunctivae normal General Eye ED: Yes normal appearance of both eyes and pale conjunctiva Neck no lymphadenopathy and supple General: Negative for tenderness Chest Wall Chest: Negative for tenderness Resp normal respiratory effort and normal air movement Effort and Inspection: symmetric chest movement; Negative for respiratory distress Cardio regular rate, regular rhythm and no murmurs Peripheral Pulses: pulses 2+ throughout GI normal to inspection, nondistended, normoactive bowel sounds GI Narrative: Tender palpation lower quadrants abdomen bilaterally, no guarding or rebound Palpation: Negative for guarding or rebound tenderness present Back/Spine no CVA tenderness and no thoracic nor lumbar tenderness Extremity normal to inspection General Extremety ED: Negative for edema or tenderness General Extremity: Negative for edema Neuro oriented x3 and no sensory deficits noted Sensorium / Orientation: awake and alert Skin no rashes or lesions noted and no wounds Skin Narrative: Mild skin pallor. MDM MDM MDM Narrative Medical decision making narrative: Work-up initiated for GI bleed. Patient on aspirin and Plavix. Slight pallor with pale conjunctiva. Type and screen. Her vitals are stable. Tender palpation lower abdomen CT scan ordered rule out diverticulitis. IV fluids started. 0156: Called to room patient had a seizure event tonic-clonic upper extremities looking to the left. Lasted less than a minute. Slightly postictal. No seizure history. Seizure pads and CT head will be obtained. 0300: Interim evaluation noted large bowel movement with clots per nursing. Her vitals are stable. Her hemoglobin to 9.9 back in August last year it was 10. White count of 11. Creatinine 1.36 similar from previous. O+ blood type. Lipase and liver enzymes are normal. Evaluation records she had an echocardiogram January 2020 EF of 45%. CT scan abdomen pelvis reviewed by myself cannot appreciate any acute findings of any diverticulitis. With her reported intermittent diarrhea nonbloody stools I did order for stool studies for further evaluation. 0350: CT abdominal scan per radiology notes mild wall thickening of the rectum that may represent proctitis. Patient normal white count. Possibly could be a cause of her bloody stools. Diverticular bleed also can cause her bloody stools. She had no diverticulitis. Her vitals remained stable. Patient back to baseline from her seizure. CTs brain and discussion results. With radiology a 1.6 cm well circumcised lesion left frontal more likely meningioma however recommended MRI studies due to no known history of this. With her seizure event, MRI is warranted in the hospital. 0415: Discussed with hospitalist, concern with new onset seizure with this new brain lesion. There is no neurology coverage and currently the EEG is down. In the interim she had another tonic-clonic seizure lasting 30 seconds. She was loaded with Keppra 2 g IV, dexamethasone x1. She is back to baseline on reevaluation. Discussed with patient and daughter who would like to try to go to [facility]. They are on page for discussion. She did have another bowel movement with bloody stools. GI did call back Dr. Ghotra, short discussion and stated will need neurology management and coverage for her seizures. Therefore will need to be transferred. 0442: Patient additional large bowel movement, blood pressure systolic 97. It has been 3 hours since her H&H, will redraw H&H, will order for 2 units of blood to start transfusion. Consent will be obtained. 0445: Callback from transfer center in [facility], patient accepted to ICU under the service of Dr. Berry. Patient and family. Image studies will be copied and sent with the patient. In addition will be pushed over in the system seismic prospecting observer helper from hospital to hospital. 0500: Hemoglobin 7.7 from 9.9. Pending blood for transfusion. Lab Data Attestation: I reviewed the patient's lab results. Labs: Laboratory Results - last 24 hr 05/07/21 05/07/21 05/07/21 01:55 01:55 01:55 WBC 11.0 RBC 3.27 L Hgb 9.9 L Hct 28.5 L MCV 87.2 MCH 30.3 MCHC 34.7 RDW Std Deviation 41.7 RDW Coeff of [place] 13.2 Plt Count 214 MPV 10.1 Immature Gran % (Auto) 0.500 Neut % (Auto) 73.8 H Lymph % (Auto) 16.5 L [place] % (Auto) 7.9 Eos % (Auto) 0.8 Baso % (Auto) 0.5 Absolute Neuts (auto) 8.1 H Absolute Lymphs (auto) 1.81 Nucleated RBC % 0 PT 12.9 INR 1.0 APTT 25.7 Sodium Potassium Chloride Carbon Dioxide Anion Gap BUN Creatinine Estim Creat Clear Calc Est GFR (MDRD) Af Amer Est GFR (MDRD) Non-Af BUN/Creatinine Ratio Glucose Calcium Total Bilirubin AST ALT Alkaline Phosphatase Total Protein Albumin Globulin Albumin/Globulin Ratio Lipase Blood Type O POSITIVE Antibody Screen NEGATIVE Crossmatch 05/07/21 05/07/21 05/07/21 01:55 01:55 04:45 WBC RBC Hgb 7.7 L Hct 22.2 L MCV MCH MCHC RDW Std Deviation RDW Coeff of [place] Plt Count MPV Immature Gran % (Auto) Neut % (Auto) Lymph % (Auto) [place] % (Auto) Eos % (Auto) Baso % (Auto) Absolute Neuts (auto) Absolute Lymphs (auto) Nucleated RBC % PT INR APTT Sodium 134 L Potassium 3.9 Chloride 101 Carbon Dioxide 25.0 Anion Gap 8 BUN 43 H Creatinine 1.36 H Estim Creat Clear Calc 25.31 Est GFR (MDRD) Af Amer 48 L Est GFR (MDRD) Non-Af 40 L BUN/Creatinine Ratio 31.6 H Glucose 147 H Calcium 9.1 Total Bilirubin 0.50 AST 29 ALT 20 Alkaline Phosphatase 101 Total Protein 6.8 Albumin 3.3 Globulin 3.5 Albumin/Globulin Ratio 0.9 Lipase 177 Blood Type Antibody Screen Crossmatch See Detail Radiography Diagnostic Testing: Clinical Impression(s) from Imaging Studies Abdomen/Pelvis CT 05/07/21 01:48 IMPRESSION: There is mild wall thickening of the rectum which may represent proctitis. There is a small focus of 8.1 mm rounded hyperdensity with a gas center, within the lumen of the rectum which may represent a hyperdense polyp, or polyp with retained contrast from prior procedure or hemorrhage. Recommend direct visualization. There is minimal diverticulosis no diverticulitis. Degenerative change of the thoracolumbar spine. Status post left nephrectomy. Minimal asymmetry of the adrenal glands which likely represents hyperplasia. Small amount of gas within the bladder suggesting recent catheterization. Densely calcified aorta with mild infrarenal stenosis. Status post sternotomy. Status post Tavr. Electronically Signed: Stephanie Garcia MD at 3:29 EST , Brain CT 05/07/21 01:59 IMPRESSION: 1.6 x 1.1 x 0.99 well-circumscribed hyperdense mass within the left side frontal extra-axial space is likely a meningioma however recommend follow-up MRI with gadolinium when appropriate for further clarification. Dense atherosclerotic disease of the bilateral cavernous carotid arteries. Bilateral atrophy. Linear low attenuation within the cerebellum which may represent atrophy versus prior ischemic change. Electronically Signed: Stephanie Garcia MD at 3:34 EST , ADDENDUM: 05/07/21 0347 IMPRESSION: 1.6 x 1.1 x 0.99 well-circumscribed hyperdense mass within the left side frontal extra-axial space is likely a meningioma however recommend follow-up MRI with gadolinium when appropriate for further clarification. Dense atherosclerotic disease of the bilateral cavernous carotid arteries. Bilateral atrophy. Linear low attenuation within the cerebellum which may represent atrophy versus prior ischemic change. N.B. : The above Results were Read Back by Stephanie Garcia MD to Dr. Rebecca MD, and understanding confirmed on 05/07/2021 03:40:31 (ET). Electronically Signed: Stephanie Garcia MD at 3:34 EST , Critical Care Time Critical Care Time: Yes Critical care time (excluding procedures): 30-74 minutes, Discussing w/Patient &/or Family/Auto Crane Driver, Discussing w/Consultants, Arranging Admission or Transfer, Performing Direct Patient Care at Bedside and - (45 minutes) Discharge Plan Triage Chief Complaint: GI Bleed ED Provider: Danilo Fernandez Dx/Rx/DC Orders Clinical Impression: Bright red rectal bleeding, New onset seizure, Anemia, Brain lesion Prescriptions: No Action Centrum Silver 0.4-300-250 mg-mcg-mcg tablet 1 tab PO DAILY RF: 0 cholecalciferol (vitamin D3) 5,000 unit capsule 5,000 unit PO DAILY RF: 0 PreserVision AREDS 14,320-226-200 mebw-bl-jxwo capsule 1 cap PO DAILY RF: 0 ferrous sulfate 325 mg (65 mg iron) tablet 325 mg PO DAILY RF: 0 acetaminophen [Tylenol Extra Strength] 500 mg tablet 500 mg PO Q6H PRNRF: 0 albuterol sulfate [Ventolin HFA] 90 mcg/actuation HFA aerosol inhaler 2 puff INHALATION Q4H PRN (Reason: shortness of breath or wheezing) Qty: 18 RF: 6 insulin glargine 100 UNIT/ML solution 10 unit SQ QHS RF: 0 aspirin 81 MG tablet 81 mg PO DAILY@0800 RF: 0 alprazolam 0.5 MG tablet 0.25 - 0.5 tab PO Q12H PRN PRN (Reason: Anxiety) RF: 0 pantoprazole 40 MG tablet 40 mg PO DAILY RF: 0 insulin aspart U-100 100 UNITS/ML insulin pen 8 units SC BREAKFAST RF: 0 latanoprost 1 DROP bottle 1 drp EACH EYE QHS RF: 0 levothyroxine 25 MCG tablet 25 mcg PO DAILY RF: 0 citalopram 20 MG tablet 20 mg PO DAILY RF: 0 loratadine 10 MG tablet 10 mg PO DAILY RF: 0 Trelegy Ellipta 200-62.5-25 mcg blister with device 1 inh inhalation DAILY Qty: 60 RF: 6 metoprolol tartrate 25 mg tablet 25 mg PO BID Qty: 180 RF: 3 furosemide 40 mg tablet 40 mg PO BID Qty: 180 RF: 3 clopidogrel [Plavix] 75 mg tablet 75 mg PO DAILY Qty: 90 RF: 3 atorvastatin 80 mg tablet 80 mg PO QHS Qty: 90 RF: 3 lisinopril 20 mg tablet 20 mg PO DAILY Qty: 90 RF: 3 potassium chloride 20 mEq tablet extended release 20 meq PO BID Qty: 180 RF: 3 Primary Care Provider: Chiara Zee Referrals: Chiara Zee MD [Primary Care Provider] - Disposition Disposition: Acute Care Hospital Discharge Location: [facility] Discharge Date/Time: 05/07/21 07:20
[2021-05-07] MEDS: 0.9% Normal Saline 1,000 ML 500 ML IV (01:55)
--- NOTE | 2021-05-07 01:59 | CT_ITS ---
We are attempting to reach an attending provider to discuss findings. An addendum with communication details will be sent when the communication is complete. STUDY: CT BRAIN WITHOUT CONTRAST REASON FOR EXAM: Female, 81 years old. Seizure RADIATION DOSAGE (If Supplied By Facility): CTDIvol = ( 44.99 ) mGy, DLP = ( 796.11 ) mGycm TECHNIQUE: Transaxial CT imaging of the brain was performed without administration of intravenous contrast material. Individualized dose optimization techniques were used for this CT. COMPARISON: No relevant priors. FINDINGS: Normal soft tissue structures. Normal calvarium. There is mild cerebral atrophy with widening of the extra-axial spaces and ventricular dilatation. There are areas of decreased attenuation within the white matter tracts of the supratentorial brain, consistent with microvascular disease changes. Normal basal ganglia and thalami. Normal brainstem. There is mild cerebellar atrophy. There are focal linear areas within the cerebellum which may represent prior ischemic change. There is no intracranial hemorrhage. There are no findings of an acute ischemic infarction. However there is a well-circumscribed mass within the left frontal extra-axial space bordering the anterior falx that measures 1.6 x 1.1 x 0.99 cm. There is no adjacent edema. Normal visualized paranasal sinuses. There is calcification of the bilateral cavernous carotid arteries. CT/Brain/Head without Contrast IMPRESSION: 1.6 x 1.1 x 0.99 well-circumscribed hyperdense mass within the left side frontal extra-axial space is likely a meningioma however recommend follow-up MRI with gadolinium when appropriate for further clarification. Dense atherosclerotic disease of the bilateral cavernous carotid arteries. Bilateral atrophy. Linear low attenuation within the cerebellum which may represent atrophy versus prior ischemic change. Electronically Signed: Stephanie Garcia MD at 3:34 EST Reading Location ID and State: [facility] [place] / [place] Tel , Service support ,
[2021-05-07 02:06] LABS: Absolute Lymphocyte Count 1.81 X10^3/uL (0.83-4.51); Absolute Neutrophil Count 8.1 X10^3/uL (2.0-7.7); Basophil# 0.06 X10^3/uL; Basophil% 0.5 % (0-1); Eosinophil# 0.09 X10^3/uL; Eosinophils% 0.8 % (0-5); Hematocrit 28.5 % (37-47); Hemoglobin 9.9 g/dL (12.0-15.0); Lymphocyte # 1.81 X10^3/ul (0.83-4.51); Lymphocyte % 16.5 % (19-41); Mean Corp Hgb Conc 34.7 g/dL (32-36); Mean Corpuscular Hgb 30.3 pg (27.0-32.0); Mean Corpuscular Volume 87.2 fL (81-99); Mean Platelet Vol. 10.1 fl (6.2-12.0); Monocyte# 0.87 X10^3/uL; Monocyte% 7.9 % (0-10); NRBC Flagged by Analyzer 0 % (0-5); Neutrophil # 8.06 X10^3/uL (2.7-7.7); Neutrophil % 73.8 % (47-70); Platelet Count 214 K/mm3 (150-450); RBC Distribution Width CV 13.2 % (11.6-14.6); RBC Distribution Width SD 41.7 fl (35.1-43.9); Red Blood Count 3.27 M/mm3 (4.2-5.4)
[2021-05-07 02:15] LABS: Prothrombin Time (Protime)PT. 12.9 SECONDS (11.7-14.9)
[2021-05-07 02:16] LABS: Partial Thromboplast Time 25.7 Seconds (24.1-36.2)
[2021-05-07 02:25] LABS: ALB/GLOB Ratio 0.9 RATIO (0.9-2.4); AST(SGOT) 29 U/L (15-37); Alanine Aminotransfer ALT/SGPT 20 U/L (13-56); Albumin, Serum 3.3 g/dL (3.2-5.0); Alkaline Phosphatase 101 U/L (45-117); Anion Gap 8 (5-15); BUN 43 mg/dL (7-18); BUN/Creat Ratio 31.6 RATIO (10-20); Calcium,Total 9.1 mg/dL (8.5-10.1); Chloride 101 mmol/L (98-107); Creatinine, Serum 1.36 mg/dL (0.55-1.02); EST Glomerular Filtration Rate 40 mL/min (>60); Est Glom Filt Rate - Afr Amer 48 mL/min (>60); Estimated Creatinine Clearance 25.31 ml/min; Globulin 3.5 g/dL (2.2-4.2); Glucose 147 mg/dL (74-106); Lipase 177 U/L (73-393); Potassium 3.9 mmol/L (3.5-5.1); Protein, Total 6.8 g/dL (6.4-8.2); Sodium Level 134 mmol/L (136-145)
[2021-05-07] MEDS: dexAMETHasone 10 MG/ML Vial IV (04:36)
[2021-05-07 04:59] LABS: Hematocrit 22.2 % (37-47); Hemoglobin 7.7 g/dL (12.0-15.0)
== END 2021-05-07 07:20 | disposition short-term general hospital (02) ==
PROVIDERS: Emergency Provider Emergency Medicine; PCP Family Medicine; Visit Provider Emergency Medicine
DX: K62.5 Hemorrhage of anus and rectum (principal); R56.9 Unspecified convulsions; G93.9 Disorder of brain, unspecified; D64.9 Anemia, unspecified; I25.10 Atherosclerotic heart disease of native coronary artery without angina pectoris; I25.2 Old myocardial infarction; G47.33 Obstructive sleep apnea (adult) (pediatric); R19.7 Diarrhea, unspecified; Z95.1 Presence of aortocoronary bypass graft; Z87.891 Personal history of nicotine dependence; Z79.01 Long term (current) use of anticoagulants
CPT/HCPCS: 36430; 70450; 74176; 80053; 83630; 83690; 85014; 85018; 85025; 85610; 85730; 86850; 86900; 86901; 86920; 86922; 87177; 87209; 87493; 87506; 87811; 96365; 96366; 96375; 99285; J7040; J7050; P9016; A4216

== ENCOUNTER → 2021-05-30 | Outpatient (REF) | payer SELFPAY ==
[2021-05-30 08:06] LABS: Hematocrit 26.9 % (37-47); Hemoglobin 8.6 g/dL (12.0-15.0); Mean Corpuscular Hgb 28.6 pg (27.0-32.0); Mean Corpuscular Volume 89.4 fL (81-99); Mean Platelet Vol. 10.5 fl (6.2-12.0); Platelet Count 229 K/mm3 (150-450); RBC Distribution Width CV 13.8 % (11.6-14.6); RBC Distribution Width SD 45.1 fl (35.1-43.9); Red Blood Count 3.01 M/mm3 (4.2-5.4)
[2021-05-30 08:20] LABS: Anion Gap 5 (5-15); BUN 24 mg/dL (7-18); BUN/Creat Ratio 20.3 RATIO (10-20); Calcium,Total 8.9 mg/dL (8.5-10.1); Chloride 100 mmol/L (98-107); Creatinine, Serum 1.18 mg/dL (0.55-1.02); EST Glomerular Filtration Rate 47 mL/min (>60); Est Glom Filt Rate - Afr Amer 57 mL/min (>60); Glucose 118 mg/dL (74-106); Potassium 3.8 mmol/L (3.5-5.1); Sodium Level 134 mmol/L (136-145)
== END | disposition home or self-care (01) ==
LOC: OLS.WHLTCC 05:00
PROVIDERS: PCP Family Medicine; Visit Provider Family Medicine
DX: E11.22 Type 2 diabetes mellitus with diabetic chronic kidney disease (principal); I69.349 Monoplegia of lower limb following cerebral infarction affecting unspecified side; D32.9 Benign neoplasm of meninges, unspecified; N18.9 Chronic kidney disease, unspecified; G93.89 Other specified disorders of brain; D62 Acute posthemorrhagic anemia; K92.2 Gastrointestinal hemorrhage, unspecified
CPT/HCPCS: 36415; 80048; 85027

== ENCOUNTER → 2021-06-06 | Outpatient (REF) | payer SELFPAY ==
[2021-06-06 09:25] LABS: Hematocrit 27.7 % (37-47); Hemoglobin 8.7 g/dL (12.0-15.0); Mean Corp Hgb Conc 31.4 g/dL (32-36); Mean Corpuscular Hgb 28.3 pg (27.0-32.0); Mean Corpuscular Volume 90.2 fL (81-99); Mean Platelet Vol. 11.2 fl (6.2-12.0); Platelet Count 184 K/mm3 (150-450); RBC Distribution Width CV 13.8 % (11.6-14.6); RBC Distribution Width SD 45.3 fl (35.1-43.9); Red Blood Count 3.07 M/mm3 (4.2-5.4); White Blood Count 7.6 K/mm3 (4.4-11.0)
[2021-06-06 09:38] LABS: Anion Gap 6 (5-15); BUN 24 mg/dL (7-18); BUN/Creat Ratio 20.3 RATIO (10-20); Calcium,Total 8.5 mg/dL (8.5-10.1); Chloride 99 mmol/L (98-107); Creatinine, Serum 1.18 mg/dL (0.55-1.02); EST Glomerular Filtration Rate 47 mL/min (>60); Est Glom Filt Rate - Afr Amer 57 mL/min (>60); Glucose 120 mg/dL (74-106); Potassium 3.9 mmol/L (3.5-5.1); Sodium Level 135 mmol/L (136-145)
== END | disposition home or self-care (01) ==
LOC: OLS.WHLTCC 05:00
PROVIDERS: PCP Family Medicine; Visit Provider Family Medicine
DX: E11.22 Type 2 diabetes mellitus with diabetic chronic kidney disease (principal); I69.349 Monoplegia of lower limb following cerebral infarction affecting unspecified side; D32.9 Benign neoplasm of meninges, unspecified; N18.9 Chronic kidney disease, unspecified; G93.89 Other specified disorders of brain; D62 Acute posthemorrhagic anemia; K92.2 Gastrointestinal hemorrhage, unspecified
CPT/HCPCS: 36415; 80048; 85027

== ENCOUNTER → 2021-06-13 | Outpatient (REF) | payer SELFPAY ==
[2021-06-13 08:50] LABS: Hematocrit 26.3 % (37-47); Hemoglobin 8.6 g/dL (12.0-15.0); Mean Corp Hgb Conc 32.7 g/dL (32-36); Mean Corpuscular Hgb 28.8 pg (27.0-32.0); Mean Platelet Vol. 10.4 fl (6.2-12.0); Platelet Count 184 K/mm3 (150-450); RBC Distribution Width CV 13.7 % (11.6-14.6); RBC Distribution Width SD 44.2 fl (35.1-43.9); Red Blood Count 2.99 M/mm3 (4.2-5.4); White Blood Count 7.1 K/mm3 (4.4-11.0)
[2021-06-13 09:17] LABS: Anion Gap 7 (5-15); BUN 18 mg/dL (7-18); BUN/Creat Ratio 16.2 RATIO (10-20); Calcium,Total 8.7 mg/dL (8.5-10.1); Chloride 104 mmol/L (98-107); Creatinine, Serum 1.11 mg/dL (0.55-1.02); EST Glomerular Filtration Rate 50 mL/min (>60); Est Glom Filt Rate - Afr Amer 61 mL/min (>60); Glucose 108 mg/dL (74-106); Potassium 3.5 mmol/L (3.5-5.1); Sodium Level 138 mmol/L (136-145)
== END | disposition home or self-care (01) ==
LOC: OLS.WHLTCC 04:00
PROVIDERS: PCP Family Medicine; Referring Provider Family Medicine; Visit Provider Family Medicine
DX: E11.22 Type 2 diabetes mellitus with diabetic chronic kidney disease (principal); I69.349 Monoplegia of lower limb following cerebral infarction affecting unspecified side; D32.9 Benign neoplasm of meninges, unspecified; G93.89 Other specified disorders of brain; D62 Acute posthemorrhagic anemia; K92.2 Gastrointestinal hemorrhage, unspecified; N18.9 Chronic kidney disease, unspecified
CPT/HCPCS: 36415; 80048; 85027

== ENCOUNTER → 2021-06-17 | Outpatient (REF) | payer SELFPAY | END | disposition home or self-care (01) | LOC: OLS.WHLTCC 10:30 | PROVIDERS: Visit Provider Family Medicine | DX: G93.89 Other specified disorders of brain (principal); I69.349 Monoplegia of lower limb following cerebral infarction affecting unspecified side; D32.9 Benign neoplasm of meninges, unspecified; D62 Acute posthemorrhagic anemia; K92.2 Gastrointestinal hemorrhage, unspecified; R19.7 Diarrhea, unspecified | CPT/HCPCS: 87493 ==

== ENCOUNTER 2021-06-21 15:16 | Outpatient (CLI) | payer MEDICARE, OTHER, SELFPAY ==
[2021-06-21 18:04] LABS: Hematocrit 29.8 % (37-47); Hemoglobin 9.5 g/dL (12.0-15.0); Mean Corp Hgb Conc 31.9 g/dL (32-36); Mean Corpuscular Hgb 28.2 pg (27.0-32.0); Mean Corpuscular Volume 88.4 fL (81-99); Mean Platelet Vol. 10.5 fl (6.2-12.0); Platelet Count 258 K/mm3 (150-450); RBC Distribution Width CV 13.8 % (11.6-14.6); RBC Distribution Width SD 44.6 fl (35.1-43.9); Red Blood Count 3.37 M/mm3 (4.2-5.4); White Blood Count 8.9 K/mm3 (4.4-11.0)
[2021-06-21 18:07] LABS: Platelet Count 258 K/mm3 (150-450); RET-HE 29.2 pg (30-35); Reticulocyte Count 2.41 % (0.5-1.5)
[2021-06-21 18:14] LABS: Albumin, Serum 3.5 g/dL (3.2-5.0); BUN 24 mg/dL (7-18); BUN/Creat Ratio 18.6 RATIO (10-20); Calcium,Total 8.4 mg/dL (8.5-10.1); Chloride 101 mmol/L (98-107); Creatinine, Serum 1.29 mg/dL (0.55-1.02); EST Glomerular Filtration Rate 42 mL/min (>60); Est Glom Filt Rate - Afr Amer 51 mL/min (>60); Glucose 105 mg/dL (74-106); Phosphorus 3.7 mg/dL (2.5-4.9); Sodium Level 137 mmol/L (136-145)
[2021-06-21 18:19] LABS: Vitamin D,25 Hydroxy 50.7 ng/mL
[2021-06-21 18:34] LABS: Protein, Urine (Random) 9.9 mg/dL (<11.9); Protein:Creat Ratio 399 mg/g CRE (0-200)
[2021-06-22 07:53] LABS: PTHIN 49.8 pg/mL (18.4-80.1)
== END 2021-06-21 23:59 | disposition home or self-care (01) ==
LOC: MFPLAB 15:19
PROVIDERS: Internal Medicine Nephrology; PCP Family Medicine; Referring Provider Family Medicine; Visit Provider Family Medicine
DX: N18.31 Chronic kidney disease, stage 3a (principal)
CPT/HCPCS: 36415; 80069; 82306; 82570; 83970; 84156; 85027; 85045

== ENCOUNTER 2021-06-22 20:34 | Emergency (ER) | payer MEDICARE, OTHER, SELFPAY ==
[2021-06-22 20:36] VITALS: BP 189/74; PULSE 85; RESP 18; TEMP 36.1; O2SAT 97; BMI 40.6
[2021-06-22 20:45] VITALS: O2SAT 97
--- NOTE | 2021-06-22 20:55 | EDS_ITS ---
HPI History of Present Illness Chief Complaint: Foreign Body Informant: patient and family Onset/Context/Timing Onset: Today and Hours Context: Gradual Onset Current Severity: Mild Maximum Severity: Mild Narrative Narrative: 81-year-old female past medical history of diabetes, CAD and CABG, COPD. Was eating lunch today and was eating a salad coughed and choked and they are concerned she may have aspirated piece of lettuce. Since that time she is had a cough. No fever. No shortness of breath. She is chronically on oxygen for COPD. She is had no chest pain. No hemoptysis. She is able to swallow she has never had an esophageal foreign body. There is no meat on the salad other than small gaitan bits. Prior similar symptoms: No Recent Illness/Hospitalization: No PFSH PFSH Medical History (Updated 06/22/21 @ 22:[address] Stephane Soares MD) Atherosclerosis of coronary artery bypass graft without angina pectoris CAD (coronary artery disease) Carotid artery disease COPD (chronic obstructive pulmonary disease) COPD exacerbation Depression Dyspnea Esophageal abnormality Esophagus, rupture Essential hypertension History of pneumothorax Left bundle branch block (LBBB) Left bundle-branch block, unspecified Left carotid artery stenosis Leg cramps Non-ST elevation (NSTEMI) myocardial infarction Nonrheumatic aortic (valve) stenosis MARGIE (obstructive sleep apnea) Paroxysmal supraventricular tachycardia by electrocardiogram (ECG) Sepsis Type 2 diabetes mellitus UTI (urinary tract infection) Home Medications alprazolam 0.25 - 0.5 tab PO Q12H PRN PRN 02/19/16 [History Last Taken 02/19/16 15:00] aspirin 81 mg PO DAILY@0800 02/19/16 [History Last Taken 02/26/20] insulin aspart U-100 8 units SC BREAKFAST 02/19/16 [History Last Taken 02/26/20] insulin glargine 10 unit SQ QHS 02/19/16 [History Last Taken 02/25/20] pantoprazole 40 mg PO DAILY 02/19/16 [History Last Taken 02/26/20] cholecalciferol (vitamin D3) 125 mcg (5,000 unit) capsule 5,000 unit PO DAILY 03/06/18 [History Last Taken 02/26/20] yinxdwki-pxr-ayzah acid 0.4 mg-lycopene 300 mcg-lutein 250 mcg tablet 1 tab PO DAILY 01/09/19 [History Last Taken Unknown] vitamins A,C,J-sdus-ddbgpy 14,320 unit-226 mg-200 unit capsule 1 cap PO DAILY cap 03/06/18 [History Last Taken 02/26/20] ferrous sulfate 325 mg (65 mg iron) tablet 325 mg PO DAILY 12/17/19 [History Last Taken 02/26/20] citalopram 20 mg PO DAILY 02/26/20 [History Last Taken 02/26/20] latanoprost 1 drp EACH EYE QHS 02/26/20 [History Last Taken 02/25/20] levothyroxine 25 mcg PO DAILY 02/26/20 [History Last Taken 02/26/20] loratadine 10 mg PO DAILY 02/26/20 [History Last Taken 02/26/20] acetaminophen 500 mg tablet 500 mg PO Q6H PRN 04/06/20 [History Last Taken Unknown] albuterol sulfate 90 mcg/actuation aerosol inhaler 2 puff INHALATION Q4H PRN #18 g 01/12/21 [Rx Last Taken Unknown] fluticasone fur. 200 mcg-umeclid 62.5 mcg-vilant 25 mcg inhalat.powder 1 inh INHALATION DAILY #60 ea 03/23/21 [Rx Last Taken Unknown] atorvastatin 80 mg tablet 80 mg PO QHS #90 tab 05/02/21 [Rx Last Taken Unknown] clopidogrel 75 mg tablet 75 mg PO DAILY #90 tab 05/02/21 [Rx Last Taken Unknown] furosemide 40 mg tablet 40 mg PO BID #180 tab 05/02/21 [Rx Last Taken Unknown] lisinopril 20 mg tablet 20 mg PO DAILY #90 tab 05/02/21 [Rx Last Taken Unknown] metoprolol tartrate 25 mg tablet 25 mg PO BID #180 tab 05/02/21 [Rx Last Taken Unknown] potassium chloride 20 mEq tablet,extended release 20 meq PO BID #180 tab 05/02/21 [Rx Last Taken Unknown] Allergy/AdvReac Type Severity Reaction Status Date / Time Penicillins Allergy Mild unknown Verified 06/22/21 20:38 levofloxacin [From Levaquin] Allergy Hives Verified 06/22/21 20:38 adhesive tape AdvReac Itching Verified 06/22/21 20:38 amoxicillin [From Augmentin] AdvReac Diarrhea Verified 06/22/21 20:38 clavulanic acid AdvReac Diarrhea Verified 06/22/21 20:38 [From Augmentin] lorazepam [From Ativan] AdvReac Other Verified 06/22/21 20:38 Family History Mother Heart disease Father Heart disease Father Myocardial infarction Surgical History History of left-sided carotid endarterectomy History of nephrectomy History of tubal ligation 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 (~01/31/16) Social History Smoking Status: Former smoker second hand exposure: Yes alcohol intake: never substance use type: does not use caffeine: Yes Type: coffee what type of physical activity do you participate in: none seatbelt use: always do you feel safe at home: Yes ROS ROS ED ROS Narrative Cough. Review of Systems ROS Unobtainable: Denies due to encephalopathy Constitutional Constitutional ED: Denies chills or fever(s) Eyes Eyes: Denies change in vision ENT ENT ED: Denies ear pain Cardiovascular Cardiovascular: Denies chest pain Respiratory/Chest Respiratory/Chest: Reports cough; Denies dyspnea or sputum Gastrointestinal Gastrointestinal: Denies abdominal pain, diarrhea, nausea or vomiting Genitourinary Genitourinary ED: Denies dysuria Musculoskeletal Musculoskeletal: Denies myalgias Integumentary Denies rash Neurologic Neurologic: Denies headache(s) Psychiatric Psychiatric: Denies depression Endocrine Endocrinology: Denies polyuria Allergic/Immunologic Allergic/Immunologic ED: Denies urticaria EXAM Physical Exam Narrative Exam Narrative: 81-year-old female no acute distress. Chronically on O2 on 2 L she is 97% no hypoxia. She is in no distress. Able to handle her own secretions. I gave her glass of water she drank it without any difficulty. No signs of esophageal obstruction. Posterior pharynx normal. Neck nontender no lymphadenopathy. Lungs clear to auscultation bilaterally. Heart regular rhythm rate about 85 no murmur. Otherwise exam under. Const Vital Signs: 06/22/21 20:36 06/22/21 20:45 Temperature 97 F L Temperature Source Temporal Pulse Rate 85 Respiratory Rate 18 Blood Pressure 189/74 H Blood Pressure Mean 112 Pulse Ox 97 97 Oxygen Delivery Method Nasal Cannula Nasal Cannula Oxygen Flow Rate (L/min) 2 2 Positive well nourished, well developed and obese; Negative for cachectic, contractures or unkempt General Appearance ED: well developed and NAD; Negative for unkempt, cachectic, contractures, cyanotic, diaphoretic or pallor Nutritional Appearance: obese; Negative for cachectic HEENT Reports moist mucous membranes tenderness; Negative for trauma Eyes PERRL and EOMs intact bilaterally General Eye ED: Negative for pale conjunctiva or scleral icterus Neck no lymphadenopathy, supple and no JVD General: Negative for tenderness Chest Wall inspection of chest normal and palpation of chest normal Resp normal respiratory effort and clear to auscultation bilaterally Auscultation: Negative for rales, rhonchi or wheezes Cardio regular rate, regular rhythm, S1 normal heart sound, S2 normal heart sound and no murmurs GI normal to inspection, nondistended, normoactive bowel sounds, non-tender, non- distended and no masses Auscultation: normoactive bowel sounds Palpation: soft; Negative for tender, guarding or rebound tenderness present Back/Spine no CVA tenderness General Back: Negative for CVA tenderness Cervical Spine: Negative for cervical spine tenderness Thoracic Spine / Upper Back: Negative for thoracic spinal tenderness Extremity normal to inspection General Extremety ED: Negative for edema or tenderness General Extremity: Negative for edema Neuro oriented x3 Sensorium / Orientation: alert; Negative for lethargic or stuporous Motor Exam: strength 5/5 throughout Psych mental status grossly normal Appearance: Negative for unkempt Attitude: No agitated Mood & Affect: Negative for depressed, anxious or tearful Skin no rashes or lesions noted and no wounds General Skin Exam: Negative for jaundice or pallor MDM MDM MDM Narrative Medical decision making narrative: 81-year-old female no distress. Family concerned about possible aspiration when she choked eating a salad today. Exam is benign. She is able swallow without any difficulty there is no signs of esophageal foreign body. Chest x-ray will be obtained. Repeat exam patient is doing well. Lungs are clear. Repeat temperature is 98.1. Discussed with her and family at bedside. She does not need any antibiotics at this time. 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 They know if she gets worse before then she can be reevaluated by us or her primary care physician. Radiography Chest X-Ray - ED: 1 View, Read by ED Physician, Read by Radiologist, Heart, Lungs, Mediastinum, Bony Structures, No Acute Disease, Chronic Changes, Right Effusion and Left Effusion Diagnostic Testing: Clinical Impression(s) from Imaging Studies Chest X-Ray 06/22/21 21:00 IMPRESSION: Cardiomegaly with aortic valve prosthesis in place. Linear opacities in the lung bases, suggestive of platelike atelectasis versus linear scars. Small bilateral pleural effusions. No pneumothorax. Status post median sternotomy. Multilevel thoracic spondylosis. Osteoarthritis of the bilateral shoulders. Electronically Signed: Pablo Mckeon MD at 21:12 EDT , Chest x-ray, portable, single view interpreted myself and radiologist shows chronic changes. Cardiomegaly and small chronic bilateral pleural effusions. No obvious pneumonia. Discussed with the family. Did explain to them if she has an aspiration Times it does not show up on the first chest x-ray and may take 48 to 72 hours to appear. Discharge Plan Triage Chief Complaint: Foreign Body ED Provider: Stephane Soares Dx/Rx/DC Orders Clinical Impression: Aspiration of food, COPD (chronic obstructive pulmonary disease) Prescriptions: No Action Centrum Silver 0.4-300-250 mg-mcg-mcg tablet 1 tab PO DAILY RF: 0 cholecalciferol (vitamin D3) 5,000 unit capsule 5,000 unit PO DAILY RF: 0 PreserVision AREDS 14,320-226-200 olqh-vn-zwbp capsule 1 cap PO DAILY RF: 0 ferrous sulfate 325 mg (65 mg iron) tablet 325 mg PO DAILY RF: 0 acetaminophen [Tylenol Extra Strength] 500 mg tablet 500 mg PO Q6H PRNRF: 0 albuterol sulfate [Ventolin HFA] 90 mcg/actuation HFA aerosol inhaler 2 puff INHALATION Q4H PRN (Reason: shortness of breath or wheezing) Qty: 18 RF: 6 insulin glargine 100 UNIT/ML solution 10 unit SQ QHS RF: 0 aspirin 81 MG tablet 81 mg PO DAILY@0800 RF: 0 alprazolam 0.5 MG tablet 0.25 - 0.5 tab PO Q12H PRN PRN (Reason: Anxiety) RF: 0 pantoprazole 40 MG tablet 40 mg PO DAILY RF: 0 insulin aspart U-100 100 UNITS/ML insulin pen 8 units SC BREAKFAST RF: 0 latanoprost 1 DROP bottle 1 drp EACH EYE QHS RF: 0 levothyroxine 25 MCG tablet 25 mcg PO DAILY RF: 0 citalopram 20 MG tablet 20 mg PO DAILY RF: 0 loratadine 10 MG tablet 10 mg PO DAILY RF: 0 Trelegy Ellipta 200-62.5-25 mcg blister with device 1 inh inhalation DAILY Qty: 60 RF: 6 metoprolol tartrate 25 mg tablet 25 mg PO BID Qty: 180 RF: 3 furosemide 40 mg tablet 40 mg PO BID Qty: 180 RF: 3 clopidogrel [Plavix] 75 mg tablet 75 mg PO DAILY Qty: 90 RF: 3 atorvastatin 80 mg tablet 80 mg PO QHS Qty: 90 RF: 3 lisinopril 20 mg tablet 20 mg PO DAILY Qty: 90 RF: 3 potassium chloride 20 mEq tablet extended release 20 meq PO BID Qty: 180 RF: 3 Primary Care Provider: Chiara Zee Referrals: Chiara Zee MD [Primary Care Provider] - As Needed David Banegas MD [STAFF PHYSICIAN] - Keep Mert appointment Activity Restrictions/Additional Instructions: Her lungs are clear. Her chest x-ray shows chronic changes but nothing acute. At this time there is no need for antibiotics or any change of her medications. If she starts to develop a fever worsening shortness of breath she needs to be evaluated by us, her primary care physician or her elementary esl teacher. Disposition Disposition: Home, Self Care
--- NOTE | 2021-06-22 21:00 | RAD_ITS ---
STUDY: X-RAY CHEST REASON FOR EXAM: Female, 81 years old. cough TECHNIQUE: 1 view COMPARISON: 06/22/2017 FINDINGS: Please see the impression. RAD/Chest 1 View (Portable) IMPRESSION: Cardiomegaly with aortic valve prosthesis in place. Linear opacities in the lung bases, suggestive of platelike atelectasis versus linear scars. Small bilateral pleural effusions. No pneumothorax. Status post median sternotomy. Multilevel thoracic spondylosis. Osteoarthritis of the bilateral shoulders. Electronically Signed: Pablo Mckeon MD at 21:12 EDT ,
[2021-06-22 22:55] VITALS: BP 189/74; PULSE 85; RESP 18; O2SAT 97
== END 2021-06-22 22:56 | disposition home or self-care (01) ==
PROVIDERS: Emergency Provider Emergency Medicine; PCP Family Medicine; Visit Provider Emergency Medicine
DX: T17.928A Food in respiratory tract, part unspecified causing other injury, initial encounter (principal); J44.9 Chronic obstructive pulmonary disease, unspecified; E11.9 Type 2 diabetes mellitus without complications; Z79.4 Long term (current) use of insulin; I25.10 Atherosclerotic heart disease of native coronary artery without angina pectoris; I10 Essential (primary) hypertension; Z87.891 Personal history of nicotine dependence; Y93.89 Activity, other specified; Y99.9 Unspecified external cause status; Y92.9 Unspecified place or not applicable; Z95.1 Presence of aortocoronary bypass graft; Z79.82 Long term (current) use of aspirin; Z79.899 Other long term (current) drug therapy; G47.33 Obstructive sleep apnea (adult) (pediatric); I25.2 Old myocardial infarction; Z79.02 Long term (current) use of antithrombotics/antiplatelets; F32.A Depression, unspecified
CPT/HCPCS: 71045; 99282

== ENCOUNTER 2021-08-25 15:42 | Inpatient (IN) | payer MEDICARE, OTHER, SELFPAY ==
[2021-08-25] VITALS (16 sets, daily range): BP systolic 145–181; BP diastolic 43–68; PULSE 75–106; RESP 12–33; TEMP 36.7–36.8; O2SAT 86–99; BMI 39.6; BMI 37.9
--- NOTE | 2021-08-25 16:03 | CT_ITS ---
STUDY: CT ABDOMEN AND PELVIS WITH CONTRAST ENHANCEMENT OF 1705 HOURS ON 08/25/2021 REASON FOR EXAM: 81-year-old female with left lower quadrant abdominal pain. RADIATION DOSAGE (If Supplied By Facility): CTDIvol = ( 16.63 ) mGy, DLP = ( 1338.09 ) mGycm TECHNIQUE: Transaxial images were obtained from the dome of the diaphragm to the symphysis pubis without oral contrast. IV 75mL [id number]-300 was administered. Sagittal and coronal images were reconstructed. Individualized dose optimization techniques were used for this CT. COMPARISON: None. FINDINGS: There is a right lower lobe alveolar infiltrative process compatible with a pneumonia. Mild to moderate cardiomegaly. Normal liver. Normal gallbladder and extrahepatic biliary system; no cholelithiasis or cholecystitis.. Normal spleen. Moderately atrophic pancreas without pancreatitis or pancreatic mass lesions. Normal bilateral adrenal glands. Absent left kidney. Normal right kidney without cystic or solid mass lesions or obstructive uropathy. Normal visualized stomach. Normal small intestine. No diverticulitis, colitis, or intestinal obstruction. No identification of the appendix. Extensively calcified abdominal aorta and iliac arteries without aneurysmal dilatation.. No current findings of intestinal ischemia. Normal inferior vena cava. Normal retroperitoneum. Normal urinary bladder. There is a small amount of air in the bladder. Small anteverted uterus. No ovarian cystic or solid masses. Moderate-sized right inguinal hernia containing fat. Some small left inguinal hernia containing fat. Normal abdominal wall. Normal osseous structures. CT/Abdomen/Pelvis W IV Cont ONLY IMPRESSION: 1. Right lower lobe alveolar pneumonia. 2. Absent left kidney. Normal right kidney without obstructive uropathy or pyelonephritis. 3. Appendix is not visualized. No diverticulitis, colitis, intestinal obstruction. 4. Moderate size right inguinal hernia containing fat and a small left inguinal hernia containing fat. 5. Small anteverted uterus. No ovarian cystic or solid mass lesions. 6. No cholecystitis or pancreatitis. 7. Small amount of air and a normal-appearing bladder. 8. Mild to moderate cardiomegaly. Electronically Signed: Ankur Su MD at 17:32 EDT ,
--- NOTE | 2021-08-25 16:04 | EDS_ITS ---
HPI HPI - GI History of Present Illness Chief Complaint: Abd Pain Narrative Narrative: 81-year-old female presenting with nausea, vomiting, diarrhea for the last 2 weeks. She lives at the [facility]. She reports that from time to time to have to put an IV in her and give her IV fluids. They are giving her Zofran as well for nausea. They are giving her Imodium for diarrhea. Patient has not had a fever. She states she intermittently has some abdominal cramping. Denies urinary complaints. She states she has not been on antibiotics recently. She has history of GI bleed in April and was transferred and [place] for the this. She is on a PPI and states she is not had any black or bloody stools. [facility] Medical History Atherosclerosis of coronary artery bypass graft without angina pectoris CAD (coronary artery disease) Carotid artery disease COPD (chronic obstructive pulmonary disease) COPD exacerbation Depression Dyspnea Esophageal abnormality Esophagus, rupture Essential hypertension History of pneumothorax Left bundle branch block (LBBB) Left bundle-branch block, unspecified Left carotid artery stenosis Leg cramps Macular degeneration of left eye Non-ST elevation (NSTEMI) myocardial infarction Nonrheumatic aortic (valve) stenosis MARGIE (obstructive sleep apnea) Paroxysmal supraventricular tachycardia by electrocardiogram (ECG) Sepsis Type 2 diabetes mellitus UTI (urinary tract infection) Home Medications alprazolam 0.5 mg tablet 0.25 - 0.5 tab PO Q12H PRN PRN Anxiety 02/19/16 [History Last Taken 02/19/16 15:00] insulin aspart U-100 100 unit/mL (3 mL) subcutaneous pen 8 units subcut BREAKFAST diabetes 02/19/16 [History Last Taken 02/26/20] insulin glargine 100 unit/mL subcutaneous solution 10 unit SQ QHS diabetes 02/19/16 [History Last Taken 02/25/20] pantoprazole 40 mg tablet,delayed release 40 mg PO DAILY GERD 02/19/16 [History Last Taken 02/26/20] [id number] acid 0.4 mg-lycopene 300 mcg-lutein 250 mcg tablet (Centrum Silver) 1 tab PO DAILY 03/06/18 [History Last Taken Unknown] citalopram 20 mg tablet 20 mg PO DAILY depression 02/26/20 [History Last Taken 02/26/20] latanoprost 0.005 % eye drops 1 drp EACH EYE QHS glaucoma 02/26/20 [History Last Taken 02/25/20] levothyroxine 25 mcg tablet 25 mcg PO DAILY thyroid 02/26/20 [History Last Taken 02/26/20] loratadine 10 mg tablet 10 mg PO DAILY allergied 02/26/20 [History Last Taken 02/26/20] acetaminophen 500 mg tablet (Tylenol Extra Strength) 500 mg PO Q6H PRN Pain 11/16 [History Last Taken Unknown] albuterol sulfate 90 mcg/actuation aerosol inhaler (Ventolin HFA) 2 puff inhalation Q4H PRN shortness of breath or wheezing #18 grams 01/12/21 [Rx Last Taken Unknown] fluticasone fur. 200 mcg-umeclid 62.5 mcg-vilant 25 mcg inhalat.powder (Trelegy Ellipta) 1 inh inhalation DAILY #60 ea 03/23/21 [Rx Last Taken Unknown] atorvastatin 80 mg tablet 80 mg PO QHS cholesterol #90 tabs 05/02/21 [Rx Last Taken Unknown] clopidogrel 75 mg tablet (Plavix) 75 mg PO DAILY #90 tabs 05/02/21 [Rx Last Taken Unknown] furosemide 40 mg tablet 40 mg PO BID fluid #180 tabs 05/02/21 [Rx Last Taken Unknown] lisinopril 20 mg tablet 20 mg PO DAILY #90 tabs 05/02/21 [Rx Last Taken Unknown] metoprolol tartrate 25 mg tablet 25 mg PO BID #180 tabs 05/02/21 [Rx Last Taken Unknown] potassium chloride 20 mEq tablet,extended release 20 meq PO BID #180 tabs 05/02/21 [Rx Last Taken Unknown] guaifenesin 600 mg tablet, extended release 12 hr (Mucinex) 600 mg PO BID 07/11/21 [History Last Taken Unknown] ipratropium 0.5 mg-albuterol 3 mg (2.5 mg base)/3 mL nebulization soln 3 ml inhalation Q4H PRN 07/11/21 [History Last Taken Unknown] ondansetron HCl 8 mg tablet 8 mg PO Q8H PRN Nausea 07/11/21 [History Last Taken Unknown] bisacodyl 10 mg rectal suppository 10 mg WI DAILY PRN Constipation 08/25/21 [History Last Taken Unknown] brimonidine 0.2 % eye drops 1 drp EACH EYE BID 08/25/21 [History Last Taken Unknown] ferrous sulfate 325 mg (65 mg iron) tablet mg 08/25/21 [History Last Taken Unknown] lactase 3,000 unit tablet (Lactaid) unit 08/25/21 [History Last Taken Unknown] loperamide 2 mg tablet 2 mg PO Q4H PRN Diarrhea 08/25/21 [History Last Taken Unknown] magnesium hydroxide 400 mg/5 mL oral suspension (Milk of Magnesia) 08/25/21 [History Last Taken Unknown] melatonin 3 mg tablet 3 mg PO DAILY 08/25/21 [History Last Taken Unknown] Allergy/AdvReac Type Severity Reaction Status Date / Time Penicillins Allergy Mild unknown Verified 08/25/21 15:48 levofloxacin [From Levaquin] Allergy Hives Verified 08/25/21 15:48 adhesive tape AdvReac Itching Verified 08/25/21 15:48 amoxicillin [From Augmentin] AdvReac Diarrhea Verified 08/25/21 15:48 clavulanic acid AdvReac Diarrhea Verified 08/25/21 15:48 [From Augmentin] lorazepam [From Ativan] AdvReac Other Verified 08/25/21 15:48 Family History Mother Heart disease Father Heart disease Father Myocardial infarction Surgical History History of left-sided carotid endarterectomy History of nephrectomy History of tubal ligation 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 (~01/31/16) Social History Smoking Status: Former smoker second hand exposure: Yes alcohol intake: never substance use type: does not use caffeine: Yes Type: coffee what type of physical activity do you participate in: none seatbelt use: always do you feel safe at home: Yes EXAM Physical Exam Const Vital Signs: 08/25/21 15:45 08/25/21 15:47 08/25/21 18:20 Temperature 98.2 F 98.2 F Temperature Source Temporal Temporal Pulse Rate 75 75 Respiratory Rate 18 18 Blood Pressure 181/56 H 181/56 H Blood Pressure Mean 97 Pulse Ox 96 96 86 Oxygen Delivery Method Room Air Room Air Nasal Cannula Oxygen Flow Rate (L/min) 2 Fraction of Inspired Oxygen (FIO2) 08/25/21 18:25 08/25/21 18:32 08/25/21 19:03 Temperature Temperature Source Pulse Rate 88 Respiratory Rate 20 H Blood Pressure Blood Pressure Mean Pulse Ox 99 96 Oxygen Delivery Method Nasal Cannula Nasal Cannula Oxygen Flow Rate (L/min) 5 2 Fraction of Inspired Oxygen (FIO2) 08/25/21 19:38 08/25/21 19:48 08/25/21 19:50 Temperature Temperature Source Pulse Rate 103 H 105 H 106 H Respiratory Rate 27 H 31 H 28 H Blood Pressure 169/68 H 162/68 H Blood Pressure Mean 101 99 Pulse Ox 95 99 97 Oxygen Delivery Method Nasal Cannula Bi-pap Oxygen Flow Rate (L/min) Fraction of Inspired Oxygen (FIO2) 35 Positive well nourished General Appearance ED: Negative for pallor HEENT Reports moist mucous membranes normocephalic Eyes PERRL and EOMs intact bilaterally General Eye ED: Negative for pale conjunctiva or scleral icterus Resp normal respiratory effort and clear to auscultation bilaterally Cardio regular rate and regular rhythm GI non-tender Auscultation: normoactive bowel sounds Palpation: soft; Negative for guarding or rigid Neuro CN's II-XII intact bilaterally and moves all extremities Sensorium / Orientation: alert, oriented to person, oriented to place and oriented to time Psych mental status grossly normal Skin General Skin Exam: Negative for jaundice or pallor MDM MDM MDM Narrative Medical decision making narrative: Patient is presenting initially for nausea, vomiting, diarrhea. She is not had any fevers. She reports that she has had IV fluids periodically at a residential. She also reports she has not been seen by a physician. She has been getting Zofran which does help. On arrival she states she is not nauseous or having pain. After I examined her nursing staff did come and states she wanted something for pain and she was given morphine and Zofran. CBC was obtained and her white blood cell count is 10.4. Hemoglobin 9.3. Hematocrit 28.8. He is all appear to be stable. Platelets are normal. Creatinine 1.38 and BUN 31. She was given IV fluids. Was consistent with infection. The patient has not had any symptoms of UTI. Urine culture will be sent. CT of the abdomen pelvis is obtained because he was having abdominal pain. This does not show any acute abdominal pathology however it does show pneumonia in the right lower lobe. There is concern this could be aspiration however she was recently admitted to the hospital in [facility] within the last 3 months and this could possibly hospital-acquired. After this the patient became short of breath when she got up to ambulate and became hypoxic on her baseline 2 L. I reevaluated the patient and she was wheezing. At this point she was given Solu-Medrol and aerosols. This did not significantly help her shortness of breath although her wheezing did improve. I obtained a 1 view chest x-ray and on my interpretation this does show pulmonary edema. Her shortness of breath may be due to IV fluids versus pneumonia. COVID testing was negative. She was covered for hospital- acquired pneumonia after speaking with the hospitalist. She was put on BiPAP which did help her. She normally does BiPAP at home at night. She has significantly improved with her breathing. Patient was given Lasix 40 IV. Transfer to floor in stable condition. Impression: 1. Nausea/vomiting 2. Diarrhea 3. Abdominal pain 4. UTI 5. Pneumonia 6. Hypoxic respiratory failure 7. CHF Lab Data Labs: Laboratory Results - last 24 hr 08/25/21 08/25/21 08/25/21 15:20 15:20 16:52 WBC 10.4 RBC 3.27 L Hgb 9.3 L Hct 28.8 L MCV 88.1 MCH 28.4 MCHC 32.3 RDW Std Deviation 48.2 H RDW Coeff of [place] 14.8 H Plt Count 191 MPV 10.8 Immature Gran % (Auto) 0.500 Neut % (Auto) 69.7 Lymph % (Auto) 19.2 [place] % (Auto) 8.2 Eos % (Auto) 2.0 Baso % (Auto) 0.4 Absolute Neuts (auto) 7.2 Absolute Lymphs (auto) 1.99 Nucleated RBC % 0 Sodium 136 Potassium 4.2 Chloride 101 Carbon Dioxide 30.0 Anion Gap 5 BUN 31 H Creatinine 1.38 H Estim Creat Clear Calc 26.14 Est GFR (MDRD) Af Amer 47 L Est GFR (MDRD) Non-Af 39 L BUN/Creatinine Ratio 22.5 H Glucose 90 Calcium 9.0 Total Bilirubin 0.90 AST 25 ALT 18 Alkaline Phosphatase 77 Total Protein 7.0 Albumin 3.2 Globulin 3.8 Albumin/Globulin Ratio 0.8 L Lipase 83 Urine Color Straw Urine Clarity Sl. Cloudy Urine pH 6.5 Ur Specific [place] 1.010 Urine Protein Negative Urine Glucose (UA) Normal Urine Ketones Negative Urine Occult Blood Negative Urine Nitrite Negative Urine Bilirubin Negative Urine Urobilinogen Normal Ur Leukocyte Esterase 500 H Urine RBC 0-5 SEEN Urine WBC 25-50 SEEN Ur Squamous Epith Cells 0-5 SEEN Urine Bacteria 4+ Urine Mucus 0 SEEN Radiography Diagnostic Testing: Clinical Impression(s) from Imaging Studies Abdomen/Pelvis CT 08/25/21 16:03 IMPRESSION: 1. Right lower lobe alveolar pneumonia. 2. Absent left kidney. Normal right kidney without obstructive uropathy or pyelonephritis. 3. Appendix is not visualized. No diverticulitis, colitis, intestinal obstruction. 4. Moderate size right inguinal hernia containing fat and a small left inguinal hernia containing fat. 5. Small anteverted uterus. No ovarian cystic or solid mass lesions. 6. No cholecystitis or pancreatitis. 7. Small amount of air and a normal-appearing bladder. 8. Mild to moderate cardiomegaly. Electronically Signed: Ankur Su MD at 17:32 EDT , Chest X-Ray 08/25/21 19:02 IMPRESSION: 1. Moderate cardiomegaly with borderline to mild congestive heart failure. 2. Mild confluent infiltrative processes in both lower lobes, that may represent either pneumonias or confluent pulmonary edema. 3. Minimal atelectatic changes in both lower lobes. 4. Small bilateral pleural effusions. 5. No other evidence of active cardiopulmonary disease. 6. Mild demineralization and a previous sternal thoracotomy. Electronically Signed: Ankur Su MD at 19:53 EDT , Discharge Plan Triage Chief Complaint: Abd Pain ED Provider: Bart Beasley Dx/Rx/DC Orders Primary Care Provider: Emanuel Patrick
[2021-08-25] MEDS: 0.9% Normal Saline 1,000 ML 1000 ML IV (16:11)
[2021-08-25 16:16] LABS: Absolute Lymphocyte Count 1.99 X10^3/uL (0.83-4.51); Absolute Neutrophil Count 7.2 X10^3/uL (2.0-7.7); Basophil# 0.04 X10^3/uL; Basophil% 0.4 % (0-1); Eosinophil# 0.21 X10^3/uL; Hematocrit 28.8 % (37-47); Hemoglobin 9.3 g/dL (12.0-15.0); Lymphocyte # 1.99 X10^3/ul (0.83-4.51); Lymphocyte % 19.2 % (19-41); Mean Corp Hgb Conc 32.3 g/dL (32-36); Mean Corpuscular Hgb 28.4 pg (27.0-32.0); Mean Corpuscular Volume 88.1 fL (81-99); Mean Platelet Vol. 10.8 fl (6.2-12.0); Monocyte# 0.85 X10^3/uL; Monocyte% 8.2 % (0-10); NRBC Flagged by Analyzer 0 % (0-5); Neutrophil # 7.21 X10^3/uL (2.7-7.7); Neutrophil % 69.7 % (47-70); Platelet Count 191 K/mm3 (150-450); RBC Distribution Width CV 14.8 % (11.6-14.6); RBC Distribution Width SD 48.2 fl (35.1-43.9); Red Blood Count 3.27 M/mm3 (4.2-5.4); White Blood Count 10.4 K/mm3 (4.4-11.0)
[2021-08-25] MEDS: Ondansetron 4 MG/2 ML Vial IV (16:26)
[2021-08-25] MEDS: Morphine 4 MG/ML Syringe IV (16:26)
[2021-08-25 16:31] LABS: ALB/GLOB Ratio 0.8 RATIO (0.9-2.4); AST(SGOT) 25 U/L (15-37); Alanine Aminotransfer ALT/SGPT 18 U/L (13-56); Albumin, Serum 3.2 g/dL (3.2-5.0); Alkaline Phosphatase 77 U/L (45-117); Anion Gap 5 (5-15); BUN 31 mg/dL (7-18); BUN/Creat Ratio 22.5 RATIO (10-20); Chloride 101 mmol/L (98-107); Creatinine, Serum 1.38 mg/dL (0.55-1.02); EST Glomerular Filtration Rate 39 mL/min (>60); Est Glom Filt Rate - Afr Amer 47 mL/min (>60); Estimated Creatinine Clearance 26.14 ml/min; Globulin 3.8 g/dL (2.2-4.2); Glucose 90 mg/dL (74-106); Lipase 83 U/L (73-393); Potassium 4.2 mmol/L (3.5-5.1); Sodium Level 136 mmol/L (136-145)
[2021-08-25 16:58] LABS: Mucous, Urine 0 SEEN /hpf (<or=2+)
[2021-08-25 16:59] LABS: Color, Urine Straw (Yellow); Glucose, Dipstick Normal (Normal); Ketone-Dipstick Negative (Negative); Leukocyte Esterase-Dipstick 500 /ul (Negative); Nitrite-Dipstick Negative (Negative); Occult Blood-Urine Negative /ul (Negative); Protein-Dipstick Negative (Negative); Urine Bilirubin Dipstick Negative (Negative); Urine Clarity Sl. Cloudy (Clear); Urine Urobilinogen Normal (Normal); Urine pH 6.5 (5.0 - 8.0)
[2021-08-25] MEDS: 0.9% Normal Saline 1,000 ML 999 ML IV (16:59)
[2021-08-25 17:29] LABS: Bacteria 4+ /hpf (None Seen); Red Blood Cells-Urine 0-5 SEEN /hpf (0-5); Squamous Epithelial Cells - UA 0-5 SEEN /hpf (5-10); White Blood Cells 25-50 SEEN /hpf (0-5)
--- NOTE | 2021-08-25 18:28 | ED.RN ---
Addendum entered by Marge Laird 08/25/21 18:42: This nurse made the pt's nurse Mansoor and Dr. Beasley aware of situation. Original Note: pt called out to use the restroom. assisted pt out of bed to bedside commode while on oxygen, this nurse could hear audible wheezing. pt was a 2 person assist back into bed, pt notes obvious shortness of breath, pulse ox was 86% on 2L. increased oxygen to 5 L. pulse ox back to 99% reduced back to 2 L and pulse ox 96% currently.
[2021-08-25] MEDS: Albuterol 2.5 MG/3 ML VIAL.NEB. INHALATION (19:02)
[2021-08-25] MEDS: Ipratropium/Albuterol Sulfate 3 ML AMPUL.NEB INHALATION (19:02)
--- NOTE | 2021-08-25 19:02 | RAD_ITS ---
STUDY: PORTABLE AP UPRIGHT CHEST X-RAY OF 1901 HOURS ON 08/25/2021 REASON FOR EXAM: 81-year-old female with dyspnea. TECHNIQUE: A single view portable AP upright chest x-ray was performed per protocol. COMPARISON: 06/22/2021. FINDINGS: Mild demineralization. Previous sternal thoracotomy. Moderate cardiomegaly with borderline to mild heart failure. Mild confluent infiltrative processes in both lower lobes, that may represent either pneumonias or confluent pulmonary edema. There is minimal atelectatic changes in both lower lobes.. Small bilateral pleural effusions are present. Heart failure and disease infiltrative processes were not present to this degree in the study of 06/22/2021. RAD/Chest 1 View (Portable) IMPRESSION: 1. Moderate cardiomegaly with borderline to mild congestive heart failure. 2. Mild confluent infiltrative processes in both lower lobes, that may represent either pneumonias or confluent pulmonary edema. 3. Minimal atelectatic changes in both lower lobes. 4. Small bilateral pleural effusions. 5. No other evidence of active cardiopulmonary disease. 6. Mild demineralization and a previous sternal thoracotomy. Electronically Signed: Ankur Su MD at 19:53 EDT ,
--- NOTE | 2021-08-25 19:24 | HP.PCM.HOS_ITS ---
HPI - General General Date of Admission: 08/25/21 Date of Service: 08/25/21 Chief Complaint: Nausea, diarrhea, R sided abdominal referred pain. HPI Narrative The patient is a 81 y/o F w/ PMHx: CAD s/p CABG x 2, Valvular Heart Disease s/p TAVR, HTN, HLD, COPD/Restrictive lung disease w/ Chronic hypoxic respiratory failure (2L NC continuously), MARGIE on BIPAP q HS, Diabetes mellitus type II, Obesity, Carotid disease s/p L CEA, Chronic normocytic anemia/iron deficiency anemia, CKD stage III unclear subtype, GERD/Hx GI bleed (04/2021) who presents to the [facility] ED on 08/25/21 with history of persistent nausea, emesis and loose stools as well as associated generalized abdominal cramping although not noted to be severe for approximately 2 weeks with administration at her skilled facility [facility] IV hydration supplementation as well as Zofran and Imodium with no recent history of fevers or chills or any antibiotic therapies nor any urinary complaints but given ongoing symptoms prompted ED evaluation. Per reports the [facility] has had COVID positive patients at their facility. She denies any marked cough or dyspnea prior to ED evaluation. Upon ED evaluation patient was also initially noted to be wheezing even before IVF. In the ED patient was administered significant IV fluid resuscitation for concerns about dehydration and following this she did become dyspneic with crackles with increased work of breathing, accessory muscle usage and conversational dyspnea with administration of Lasix 40 mg IV x1 and placement on BiPAP with significant improvement following. Work-up in the ED included T98.2, heart rate 75, BP 181/56, respi ratory rate 18, 96% on room air, CBC with WBC 10.4, hemoglobin 9.3, platelet 191 without marked shift, CMP with BUN/creat 31/1.38 otherwise hepatic profile unremarkable, lipase 83, urinalysis with specific gravity 1.01, negative nitrite, leukocyte esterase 500, urine WBC is 25-50 with 4+ urine bacteria, urine culture pending per ED, CT abdomen pelvis with evidence of right lower lobe alveolar pneumonia, absence of the left kidney, normal right kidney with no obstructive uropathy or pyelonephritis, nonvisualized appendix, no evidence of an diverticulitis, colitis or intestinal obstruction, moderate sized right inguinal hernia containing fat and a small left inguinal hernia containing fat, small anteverted uterus, no cholecystitis or pancreatitis, small amount of air normal-appearing bladder, mild to moderate cardiomegaly, chest x-ray with moderate cardiomegaly with borderline to mild congestive heart failure, mild concern infiltrative process bilateral lower lobes possibly other pneumonias or confluent pulmonary edema, minimal atelectatic changes both lower lobes, small bilateral pleural effusions otherwise no other evidence of any acute cardiopulmonary findings pending COVID and flu rapid antigen testing per ED. in the ED patient ministered Zofran, morphine, Solu-Medrol 125 mg IV x1, albuterol and DuoNeb therapies as well as 2 L normal saline bolus. [facility] Medical History Atherosclerosis of coronary artery bypass graft without angina pectoris CAD (coronary artery disease) Carotid artery disease COPD (chronic obstructive pulmonary disease) COPD exacerbation Depression Dyspnea Esophageal abnormality Esophagus, rupture Essential hypertension History of pneumothorax Left bundle branch block (LBBB) Left bundle-branch block, unspecified Left carotid artery stenosis Leg cramps Macular degeneration of left eye Non-ST elevation (NSTEMI) myocardial infarction Nonrheumatic aortic (valve) stenosis MARGIE (obstructive sleep apnea) Paroxysmal supraventricular tachycardia by electrocardiogram (ECG) Sepsis Type 2 diabetes mellitus UTI (urinary tract infection) Home Medications alprazolam 0.5 mg tablet 0.25 - 0.5 tab PO Q12H PRN PRN Anxiety 02/19/16 [History Last Taken 02/19/16 15:00] insulin aspart U-100 100 unit/mL (3 mL) subcutaneous pen 8 units subcut BREAKFAST diabetes 02/19/16 [History Last Taken 02/26/20] insulin glargine 100 unit/mL subcutaneous solution 10 unit SQ QHS diabetes 02/19/16 [History Last Taken 02/25/20] pantoprazole 40 mg tablet,delayed release 40 mg PO DAILY GERD 02/19/16 [History Last Taken 02/26/20] sgkxvxeq-ftr-gpnyu acid 0.4 mg-lycopene 300 mcg-lutein 250 mcg tablet (Centrum Silver) 1 tab PO DAILY 03/06/18 [History Last Taken Unknown] citalopram 20 mg tablet 20 mg PO DAILY depression 02/26/20 [History Last Taken 02/26/20] latanoprost 0.005 % eye drops 1 drp EACH EYE QHS glaucoma 02/26/20 [History Last Taken 02/25/20] levothyroxine 25 mcg tablet 25 mcg PO DAILY thyroid 02/26/20 [History Last Taken 02/26/20] loratadine 10 mg tablet 10 mg PO DAILY allergied 02/26/20 [History Last Taken 02/26/20] acetaminophen 500 mg tablet (Tylenol Extra Strength) 500 mg PO Q6H PRN Pain 04/06/20 [History Last Taken Unknown] albuterol sulfate 90 mcg/actuation aerosol inhaler (Ventolin HFA) 2 puff i nhalation Q4H PRN shortness of breath or wheezing #18 grams 01/12/21 [Rx Last Taken Unknown] fluticasone fur. 200 mcg-umeclid 62.5 mcg-vilant 25 mcg inhalat.powder (Trelegy Ellipta) 1 inh inhalation DAILY #60 ea 03/23/21 [Rx Last Taken Unknown] atorvastatin 80 mg tablet 80 mg PO QHS cholesterol #90 tabs 05/02/21 [Rx Last Taken Unknown] clopidogrel 75 mg tablet (Plavix) 75 mg PO DAILY #90 tabs 05/02/21 [Rx Last Taken Unknown] furosemide 40 mg tablet 40 mg PO BID fluid #180 tabs 05/02/21 [Rx Last Taken Unknown] lisinopril 20 mg tablet 20 mg PO DAILY #90 tabs 05/02/21 [Rx Last Taken Unknown] metoprolol tartrate 25 mg tablet 25 mg PO BID #180 tabs 05/02/21 [Rx Last Taken Unknown] potassium chloride 20 mEq tablet,extended release 20 meq PO BID #180 tabs 05/02/21 [Rx Last Taken Unknown] guaifenesin 600 mg tablet, extended release 12 hr (Mucinex) 600 mg PO BID 07/11/21 [History Last Taken Unknown] ipratropium 0.5 mg-albuterol 3 mg (2.5 mg base)/3 mL nebulization soln 3 ml inhalation Q4H PRN 07/11/21 [History Last Taken Unknown] ondansetron HCl 8 mg tablet 8 mg PO Q8H PRN Nausea 07/11/21 [History Last Taken Unknown] bisacodyl 10 mg rectal suppository 10 mg CO DAILY PRN Constipation 08/25/21 [History Last Taken Unknown] brimonidine 0.2 % eye drops 1 drp EACH EYE BID 08/25/21 [History Last Taken Unknown] ferrous sulfate 325 mg (65 mg iron) tablet mg 08/25/21 [History Last Taken Unknown] lactase 3,000 unit tablet (Lactaid) unit 08/25/21 [History Last Taken Unknown] loperamide 2 mg tablet 2 mg PO Q4H PRN Diarrhea 08/25/21 [History Last Taken Unknown] magnesium hydroxide 400 mg/5 mL oral suspension (Milk of Magnesia) 08/25/21 [History Last Taken Unknown] melatonin 3 mg tablet 3 mg PO DAILY 08/25/21 [History Last Taken Unknown] Allergy/AdvReac Type Severity Reaction Status Date / Time Penicillins Allergy Mild unknown Verified 08/25/21 15:48 levofloxacin [From Levaquin] Allergy Hives Verified 08/25/21 15:48 adhesive tape AdvReac Itching Verified 08/25/21 15:48 amoxicillin [From Augmentin] AdvReac Diarrhea Verified 08/25/21 15:48 clavulanic acid AdvReac Diarrhea Verified 08/25/21 15:48 [From Augmentin] lorazepam [From Ativan] AdvReac Other Verified 08/25/21 15:48 Family History Mother Heart disease Father Heart disease Father Myocardial infarction Surgical History History of left-sided carotid endarterectomy History of nephrectomy History of tubal ligation 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 (~01/31/16) Social History Smoking Status: Former smoker second hand exposure: Yes alcohol intake: never substance use type: does not use caffeine: Yes Type: coffee what type of physical activity do you participate in: none seatbelt use: always do you feel safe at home: Yes ROS ROS Narrative Admission Review of Systems: CONSTITUTIONAL: No weight loss, fever +, chills, weakness or fatigue. HEENT: Eyes: No visual loss, blurred vision, double vision or yellow sclerae. Ears, Nose, Throat: No hearing loss, sneezing, congestion, runny nose or sore throat. SKIN: No rash or itching, lesions, wounds. CARDIOVASCULAR: No chest pain, chest pressure or chest discomfort, palpitations, edema, orthopnea, syncopal events. RESPIRATORY: + Shortness of breath, wheezing, No marked cough or sputum, hemoptysis. GASTROINTESTINAL: + Anorexia, nausea, vomiting, diarrhea, abdominal cramping, No melena, BRBPR. GENITOURINARY: No dysuria, frequency, urgency or retention. NEUROLOGICAL: No headache, dizziness, syncope, paralysis, ataxia, numbness or tingling in the extremities, focal weakness, change in bowel or bladder control, seizure. MUSCULOSKELETAL: + muscle, back pain, joint pain or stiffness. HEMATOLOGIC: + anemia, bleeding or bruising. LYMPHATICS: No enlarged nodes. No history of splenectomy. PSYCHIATRIC: + history of depression or anxiety. ENDOCRINOLOGIC: No reports of sweating, cold or heat intolerance. No polyuria or polydipsia. ALLERGIES: No history of asthma, hives, eczema or rhinitis. Vital Signs Vital Signs Vital Signs: 08/25/21 15:45 08/25/21 15:47 08/25/21 18:20 Temperature 98.2 F 98.2 F Temperature Source Temporal Temporal Pulse Rate 75 75 Respiratory Rate 18 18 Blood Pressure 181/56 H 181/56 H Blood Pressure Mean 97 Pulse Ox 96 96 86 Oxygen Delivery Method Room Air Room Air Nasal Cannula Oxygen Flow Rate (L/min) 2 08/25/21 18:25 08/25/21 18:32 08/25/21 19:03 Temperature Temperature Source Pulse Rate 88 Respiratory Rate 20 H Blood Pressure Blood Pressure Mean Pulse Ox 99 96 Oxygen Delivery Method Nasal Cannula Nasal Cannula Oxygen Flow Rate (L/min) 5 2 Weight Weight: 216 lb 14.958 oz Body Mass Index (BMI) 39.6 Physical Exam Narrative Physical Examination: General: Awake, alert, oriented x 3 and cooperative, seated upright in the ED bed, increased RR, conversational dyspnea, BIPAP being placed now, evidence of respiratory distress. Skin: Normal color, normal turgor, no icterus, no cyanosis except BL LE venous stasis skin changes. HEENT: AT/NC, EOMI, PERRLA, mildly dry MM, BIPAP being placed, no carotid bruits, difficult to assess JVD given thickened neck. Lungs: Increased RR, accessory muscle usage, conversational dyspnea, Bl mild rales, occasional end expiratory wheezing, poor air movement, evidence respiratory distress, no ronchi. Heart: Regular rate and rhythm; no gallop, rub audible. Abdomen: Soft, obesity, NTTP, difficult to assess distention given habitus, distant normal BS, no obvious evidence of HSM; however, habitus makes evaluation difficult. Extremities: No cyanosis, no clubbing, chronic BL LE lymphedema, see skin. Neurological: Patient awake, alert, oriented as noted, cognitive function appears intact; pupils equally reactive to light and accommodation, cranial nerves II-XII grossly normal, moving all 4 extremities, no focal deficits, stren gth severely globally decreased secondary to acute presentation and underlying comorbidities. Psychiatric: Affect appears fatigued, evidence respiratory distress as noted, anxious, no acute evidence of depressive feelings. Results Lab / Micro Data Result Diagrams: 08/25/21 15:20 08/25/21 15:20 Labs: Laboratory Results - last 24 hr 08/25/21 15:20: WBC 10.4, RBC 3.27 L, Hgb 9.3 L, Hct 28.8 L, MCV 88.1, MCH 28.4, MCHC 32.3, RDW Std Deviation 48.2 H, RDW Coeff of [place] 14.8 H, Plt Count 191, MPV 10.8, Immature Gran % (Auto) 0.500, Neut % (Auto) 69.7, Lymph % (Auto) 19.2, Wise % (Auto) 8.2, Eos % (Auto) 2.0, Baso % (Auto) 0.4, Absolute Neuts (auto) 7.2, Absolute Lymphs (auto) 1.99, Nucleated RBC % 0 08/25/21 15:20: Sodium 136, Potassium 4.2, Chloride 101, Carbon Dioxide 30.0, Anion Gap 5, BUN 31 H, Creatinine 1.38 H, Estim Creat Clear Calc 26.14, Est GFR (MDRD) Af Amer 47 L, Est GFR (MDRD) Non-Af 39 L, BUN/Creatinine Ratio 22.5 H, Glucose 90, Calcium 9.0, Total Bilirubin 0.90, AST 25, ALT 18, Alkaline Phosphatase 77, Total Protein 7.0, Albumin 3.2, Globulin 3.8, Albumin/Globulin Ratio 0.8 L, Lipase 83 08/25/21 16:52: Urine Color Straw, Urine Clarity Sl. Cloudy, Urine pH 6.5, Ur Specific [place] 1.010, Urine Protein Negative, Urine Glucose (UA) Normal, Urine Ketones Negative, Urine Occult Blood Negative, Urine Nitrite Negative, Urine Bilirubin Negative, Urine Urobilinogen Normal, Ur Leukocyte Esterase 500 H, Urine RBC 0-5 SEEN, Urine WBC 25-50 SEEN, Ur Squamous Epith Cells 0-5 SEEN, Urine Bacteria 4+, Urine Mucus 0 SEEN Radiology Impression Abdomen/Pelvis CT 08/25/21 16:03 IMPRESSION: 1. Right lower lobe alveolar pneumonia. 2. Absent left kidney. Normal right kidney without obstructive uropathy or pyelonephritis. 3. Appendix is not visualized. No diverticulitis, colitis, intestinal obstruction. 4. Moderate size right inguinal hernia containing fat and a small left inguinal hernia containing fat. 5. Small anteverted uterus. No ovarian cystic or solid mass lesions. 6. No cholecystitis or pancreatitis. 7. Small amount of air and a normal-appearing bladder. 8. Mild to moderate cardiomegaly. Electronically Signed: Ankur Su MD at 17:32 EDT , Assessment & Plan Assessment/Plan (1) Acute and chronic respiratory failure with hypoxia: PLAN: Plan The patient is a 81 y/o F w/ PMHx: CAD s/p CABG x 2, Valvular Heart Disease s/p TAVR, HTN, HLD, COPD/Restrictive lung disease w/ Chronic hypoxic respiratory failure (2L NC continuously), MARGIE on BIPAP q HS, Diabetes mellitus type II, Obesity, Carotid disease s/p L CEA, Chronic normocytic anemia/iron deficiency anemia, CKD stage III unclear subtype, GERD/Hx GI bleed (04/2021) who presents to the [facility] ED on 08/25/21 with history of persistent nausea, emesis and loose stools as well as associated generalized abdominal cramping although not noted to be severe for approximately 2 weeks with administration at her skilled facility [facility] IV hydration supplementation as well as Zofran and Imodium with no recent history of fevers or chills or any antibiotic therapies nor any urinary complaints but given ongoing symptoms prompted ED evaluation. #1. Acute Hypoxic Respiratory Failure on Chronic, Multifactorial, #1 Acute on chronic COPD exacerbation and R lower lobe alveolar Pneumonia, Possibly Aspiration component given N/V with chronic hypoxic respiratory failure as well as #2: Will admit to [facility], maintain on oxygen with wean as tolerated to home oxygen supplementation, continue ATC duonebs, PRN albuterol, IV methylprednisolone with prednisone transition, HOB, IS parameters, IV Rocephin and Flagyl with pending MRSA screen with pending sputum cultures, full re spiratory panel, urine antigens, pending ED rapid COVID/Flu. #2. 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 02/26/2020 echocardiogram with normal LV size, severe concentric LVH, EF 45%, septal motion consistent with IVCD, stage II diastolic dysfunction, PASP 37 mmHg. Will maintain on cardiac telemetry, obtain cardiac enzyme series, obtain serial EKGs, continue IV lasix diuresis with transition to oral once improving, monitor I/Os, continue medical therapy, obtain TSH and magnesium level. #3. Nausea, emesis, diarrhea, suspected secondary to #1 however certainly could be additional etiology: COVID antigen has been requested per ED but given timeline will request COVID PCR as this would be more appropriate. Patient has been vaccinated with 3 vaccines but has yet to get her fourth. Additionally wi ll request stool enteric and C. difficile to be cautious. If stools are unremarkable would initiate loperamide regimen or if secondary to #1. If patient is COVID-positive then would also initiate loperamide regimen. #4. CAD: Status post CABG x2, continue patient home regimen Plavix, metoprolol, lisinopril, statin therapy #5. Carotid disease: Status post left CEA, continue patient home regimen Plavix, hypertensive regimen, statin therapy. #6. Hypertension: Continue home regimen including metoprolol, Lasix, lisinopril with hold parameters as needed, PRN hydralazine. #7. Hyperlipidemia: We will continue patient on statin therapy. #8. Hypothyroidism: We will continue patient home levothyroxine regimen. #9. Valvular heart disease: Status post TAVR 2016, #26 ROSS S3 valve January 2016. #10. Diabetes mellitus type II: Hold oral home regimen, continue home insulin regimen, ADA diet, accu checks w/ ISS. #11. Chronic normocytic anemia/iron deficiency anemia: Admission hemoglobin 9.3, baseline appears 8-9 primarily, stable, continue iron supplementation and trending.. #12. Chronic Kidney Disease Stage III, unclear subtype: Admission BUN/Cr 31/1.38, baseline renal function 1.1-1.3, repeat BMP in AM. #13. Obesity: Weight loss and lifestyle changes encouraged. #14. Anxiety and depression: We will continue patient home citalopram and low- dose alprazolam regimen. #15. GERD, Hx GI Bleed, Hx Esophageal rupture: Continue patient home PPI. #16. MARGIE: BiPAP 17/13 cmH2O q HS. #17. DVT Prophylaxis: SCDs, lovenox. #18. CODE status: Patient SORIN is her daughter who is present and living will is currently in place. Discussed CODE status at length including difference between FULL code, DNR-CCA and DNR-CC status. Following discussions about the differences in these status, requested DNR-CCA, no intubation status. Advanced Care Planning Face to Face Time: 16 minutes. Charges/Coding Visit Charges Inpatient E&M: 72479 Init Hosp L3 Procedures Hospitalists Procedures: 99180 Advncd Care Plan 30 Min
[2021-08-25] MEDS: MethylPREDNISolone 125 MG/2 ML Vial IV (19:27)
[2021-08-25] MEDS: Furosemide 40 MG/4 ML Vial IV (19:50)
[2021-08-25] MEDS: ALPRAZolam 0.5 MG Tablet PO (20:58)
[2021-08-25] MEDS: Clindamycin 600 MG/50 ML BAG 100 MG IV (21:12)
[2021-08-25 21:21] LABS: Magnesium 1.7 mg/dL (1.6-2.6)
[2021-08-25 21:35] LABS: Procalcitonin 0.14 ng/mL (0.00-0.09)
--- NOTE | 2021-08-25 22:01 | ED.RN ---
[facility] MADE AWARE PATIENT IS BEING ADMITTED AT THIS TIME
[2021-08-26] VITALS (19 sets, daily range): BP systolic 135–150; BP diastolic 44–52; PULSE 77–95; RESP 12–27; TEMP 36.2–36.9; O2SAT 94–99
[2021-08-26 00:06] LABS: Bedside Glucose 194 mg/dL (74-106)
[2021-08-26] MEDS: metroNIDAZOLE 500 MG/100 ML BAG 100 MG IV ×4 (00:16→21:19)
[2021-08-26] MEDS: guaiFENesin 600 MG Tablet PO ×3 (00:21→21:26)
[2021-08-26] MEDS: Atorvastatin Calcium 80 MG Tablet PO (00:21)
[2021-08-26] MEDS: Potassium Chloride Oral Tablet 20 MEQ PO ×3 (00:21→22:03)
[2021-08-26] MEDS: BRIMONIDINE 0.2% 5ML BOTTLE 1 DRP EACH EYE ×3 (00:22→21:23)
[2021-08-26] MEDS: Latanoprost 0.005% 1 Bottle 1 DRP EACH EYE ×2 (00:22→21:23)
[2021-08-26 00:27] LABS: Troponin-I HS 39 pg/mL (3.0-54.0)
[2021-08-26] MEDS: Metoprolol Tartrate 25 MG Tablet PO ×3 (00:30→21:22)
[2021-08-26 02:01] LABS: Troponin-I HS 45 pg/mL (3.0-54.0)
[2021-08-26] MEDS: Levothyroxine 25 MCG TABLET PO (05:33)
[2021-08-26 05:34] LABS: Absolute Lymphocyte Count 0.39 X10^3/uL (0.83-4.51); Basophil# 0.01 X10^3/uL; Basophil% 0.1 % (0-1); Eosinophil# 0.01 X10^3/uL; Eosinophils% 0.1 % (0-5); Hematocrit 28.7 % (37-47); Lymphocyte # 0.39 X10^3/ul (0.83-4.51); Lymphocyte % 4.6 % (19-41); Mean Corp Hgb Conc 31.4 g/dL (32-36); Mean Corpuscular Hgb 27.9 pg (27.0-32.0); Mean Corpuscular Volume 88.9 fL (81-99); Mean Platelet Vol. 10.5 fl (6.2-12.0); Monocyte# 0.08 X10^3/uL; Monocyte% 0.9 % (0-10); NRBC Flagged by Analyzer 0 % (0-5); Neutrophil # 8.01 X10^3/uL (2.7-7.7); Neutrophil % 93.8 % (47-70); POSITIVE COUNT YES; POSITIVE DIFFERENTIAL YES; Platelet Count 172 K/mm3 (150-450); RBC Distribution Width CV 14.6 % (11.6-14.6); RBC Distribution Width SD 47.2 fl (35.1-43.9); Red Blood Count 3.23 M/mm3 (4.2-5.4); White Blood Count 8.5 K/mm3 (4.4-11.0)
[2021-08-26 05:36] LABS: Differential Indicated SCAN CRITERIA MET
[2021-08-26 06:07] LABS: ALB/GLOB Ratio 0.7 RATIO (0.9-2.4); AST(SGOT) 24 U/L (15-37); Alanine Aminotransfer ALT/SGPT 18 U/L (13-56); Albumin, Serum 2.8 g/dL (3.2-5.0); Alkaline Phosphatase 68 U/L (45-117); Anion Gap 9 (5-15); BUN 25 mg/dL (7-18); Calcium,Total 8.7 mg/dL (8.5-10.1); Chloride 104 mmol/L (98-107); Cholesterol 99 mg/dL (200); Creatinine, Serum 1.25 mg/dL (0.55-1.02); EST Glomerular Filtration Rate 44 mL/min (>60); Est Glom Filt Rate - Afr Amer 53 mL/min (>60); Estimated Creatinine Clearance 30.19 ml/min; Globulin 3.8 g/dL (2.2-4.2); Glucose 227 mg/dL (74-106); High Density Lipoprotein 51 mg/dL; Potassium 3.9 mmol/L (3.5-5.1); Protein, Total 6.6 g/dL (6.4-8.2); Sodium Level 137 mmol/L (136-145); Thyroid Stim Hormone (TSH) 0.69 uIU/mL (0.358-3.74); Triglycerides 34 mg/dL; Troponin-I HS 47 pg/mL (3.0-54.0); Very Low Density Lipoprotein 7 mg/dL (5-40)
[2021-08-26] MEDS: Ipratropium/Albuterol Sulfate 3 ML AMPUL.NEB INHALATION ×3 (06:42→15:25)
[2021-08-26] MEDS: Insulin Lispro 100 UNIT/ML INSULN.PEN 8 UNIT SC (08:42)
[2021-08-26] MEDS: Insulin Lispro 100 UNIT/ML INSULN.PEN SC ×3 (08:43→21:26)
[2021-08-26] MEDS: ALPRAZolam 0.5 MG Tablet PO ×2 (08:58→21:23)
[2021-08-26] MEDS: Ferrous Sulfate 325 MG Tablet PO (09:06)
[2021-08-26] MEDS: Citalopram 20 MG Tablet PO (09:06)
[2021-08-26] MEDS: Loratadine 10 MG Tablet PO (09:06)
[2021-08-26] MEDS: Lisinopril 20 MG Tablet PO (09:07)
[2021-08-26] MEDS: Clopidogrel Bisulfate 75 MG Tablet PO (09:07)
[2021-08-26] MEDS: Pantoprazole Sodium 40 MG Tablet PO (09:07)
[2021-08-26] MEDS: Enoxaparin 30 MG/0.3 ML Syringe SC (09:09)
[2021-08-26] MEDS: Furosemide 40 MG/4 ML Vial IV ×2 (09:09→17:02)
[2021-08-26] MEDS: Ceftriaxone 1 GM/50 ML BAG IV (09:10)
--- NOTE | 2021-08-26 09:59 | CASEMGMT ---
Patient is from [facility]. ETHEL faxed updates to [facility]. Jessie Rueda [employer] JOLEEN
[2021-08-26 11:57] LABS: M R Staph aureus DNA By PCR Negative (Negative); Probe Check PASS; Specimen Processing Control PASS
[2021-08-26 12:41] LABS: Bedside Glucose 156 mg/dL (74-106)
[2021-08-26] MEDS: 0.9% Saline Lock 10 ML Syringe IV ×2 (14:36→16:53)
[2021-08-26] MEDS: Acetaminophen 325 MG Tablet 650 MG PO (16:52)
[2021-08-26 17:00] LABS: Bedside Glucose 160 mg/dL (74-106)
--- NOTE | 2021-08-26 18:50 | PCM.PN.HOSP ---
Subjective Subjective Seen and examined today, she appears stable on 2 L of nasal cannula oxygen. Patient's white count remains normal today, she is afebrile. I had a long discussion with the patient and her daughter who was in the room at the time my examination. I am not absolutely sure patient has pneumonia at this time, I have chosen to continue IV antibiotic treatment however and reevaluate the patient tomorrow. I have also chosen to keep the patient on IV Lasix at this time. Objective Data Objective Data Vital Signs: Vital Signs Temp Pulse Resp BP Pulse Ox O2 Del Method O2 Flow Rate 97.5 F L 80 18 150/52 H 97 Nasal Cannula 2 08/26/21 17:30 08/26/21 17:30 08/26/21 17:30 08/26/21 17:30 08/26/21 17:30 08/26/21 17:30 08/26/21 17:30 FiO2 35 08/26/21 01:40 Oxygen Flow Rate (L/min) 2 Oxygen Delivery Method Nasal Cannula Weight: 98.5 kg Body Mass Index (BMI) 37.9 Intake & Output: Intake and Output for Last 24 Hours 08/24/21 08/25/21 08/26/21 23:59 23:59 23:59 Intake Total 2049 / 2049 880 / 880 Output Total 1999 / 1999 1100 / 1100 Balance 50 / 50 -220 / -220 Lab / Micro Data Result Diagrams: 08/26/21 05:10 08/26/21 05:10 Labs: Laboratory Results - last 24 hr 08/25/21 20:55: COVID-19 (TORIE) Not Detected 08/25/21 21:02: Magnesium 1.7 08/25/21 21:02: Procalcitonin 0.14 H 08/25/21 23:43: Troponin I High Sens 39 08/25/21 23:59: POC Glucose 194 H 08/26/21 01:30: Troponin I High Sens 45 08/26/21 05:10: WBC 8.5, RBC 3.23 L, Hgb 9.0 L, Hct 28.7 L, MCV 88.9, MCH 27.9, MCHC 31.4 L, RDW Std Deviation 47.2 H, RDW Coeff of [place] 14.6, Plt Count 172, MPV 10.5, Immature Gran % (Auto) 0.500, Neut % (Auto) 93.8 H, Lymph % (Auto) 4.6 L, [place] % (Auto) 0.9, Eos % (Auto) 0.1, Baso % (Auto) 0.1, Absolute Neuts (auto) 8.0 H, Absolute Lymphs (auto) 0.39 L, Nucleated RBC % 0 08/26/21 05:10: Sodium 137, Potassium 3.9, Chloride 104, Carbon Dioxide 24.0, Anion Gap 9, BUN 25 H, Creatinine 1.25 H, Estim Creat Clear Calc 30.19, Est GFR (MDRD) Af Amer 53 L, Est GFR (MDRD) Non-Af 44 L, BUN/Creatinine Ratio 20.0, Glucose 227 H, Calcium 8.7, Total Bilirubin 0.70, AST 24, ALT 18, Alkaline Phosphatase 68, Troponin I High Sens 47, Total Protein 6.6, Albumin 2.8 L, Globulin 3.8, Albumin/Globulin Ratio 0.7 L, Triglycerides 34, Cholesterol 99, LDL Cholesterol 41, VLDL Cholesterol 7, HDL Cholesterol 51, TSH 0.69 08/26/21 09:00: MRSA (PCR) Negative 08/26/21 12:35: POC Glucose 156 H 08/26/21 16:57: POC Glucose 160 H Micro: Microbiology 08/25/21 16:42 Urine, Clean Catch Urine Culture - Preliminary 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 Moderate cardiomegaly with borderline to mild congestive heart failure. 2. Mild confluent infiltrative processes in both lower lobes, that may represent either pneumonias or confluent pulmonary edema. 3. Minimal atelectatic changes in both lower lobes. 4. Small bilateral pleural effusions. 5. No other evidence of active cardiopulmonary disease. 6. Mild demineralization and a previous sternal thoracotomy. Electronically Signed: Ankur Su MD at 19:53 EDT , Physical Exam Const alert, oriented x3 and no apparent distress Constitutional Narrative: Patient appears older than her stated age General Appearance: cooperative, well kempt and well developed Orientation / Consciousness: awake, oriented to person, oriented to place and oriented to time HEENT normocephalic, head/scalp atraumatic and moist oral mucous membranes Eyes PERRL, EOMs intact bilaterally and conjunctivae normal Neck nuchal rigidity, supple, no JVD, thyroid normal and no carotid bruits General: trachea midline Resp normal respiratory effort, no retractions and no use of accessory muscles Resp Narrative: Decreased breath sounds are noted bilaterally Auscultation: Negative for rales, rhonchi or wheezes Cardio regular rate, regular rhythm, S1 normal heart sound, S2 normal heart sound, no murmurs, no rub and no gallops GI normal to inspection, nondistended, normoactive bowel sounds, soft to palpation, non-tender and non-distended Extremity no clubbing, cyanosis or edema Skin no rashes or lesions noted General Skin Exam: no breakdown Neuro oriented x3, CN's II-XII intact bilaterally, no focal motor deficits and no sensory deficits noted Sensorium / Orientation: awake and alert Speech: speech normal Psych affect normal Assessment & Plan Assessment/Plan (1) MARGIE (obstructive sleep apnea): PLAN: Plan 1. Diarrhea with nausea and vomiting-resolved at this time, the etiology of her diarrhea is unknown at this time, patient has not had any more diarrhea since she has been admitted to the hospital. I have decided to place the patient on Bentyl. #2 community-acquired pneumonia-patient will remain on Rocephin and Flagyl at this time, patient's shows no signs or symptoms of pneumonia such as purulent sputum production, fever, chills, or elevated white count. I will repeat the patient's chest x-ray tomorrow and decide whether to continue antibiotic coverage home patient #3 acute on chronic congestive heart failure with intermediate ejection fraction-patient will remain on IV Lasix at this time, repeat chest x-ray tomorrow #4 obstructive sleep apnea-patient is on BiPAP while sleeping, this will be continued here #5 acute on chronic hypoxemic respiratory failure-patient is currently on 2 L via nasal cannula at this time, pulse ox will be monitored #6 chronic obstructive pulmonary disease-I have chosen to reduce the patient's IV Solu-Medrol at this time, she will remain on aerosol treatments #7 coronary artery disease-stable at this time, patient will remain on her current medications #8 valvular heart disease-patient has past history of a TAVR #9 hyperlipidemia-patient is on a statin #10 chronic depression-patient is currently on an SSRI #11 type 2 diabetes-patient's blood sugar will be monitored, sliding scale insulin will be administered as needed #12 hypothyroidism-patient is on Synthroid Charges/Coding Visit Charges Inpatient E&M: 56943 Subs Hosp L3
[2021-08-26] MEDS: MELATONIN 3 MG TABLET PO (21:22)
[2021-08-26] MEDS: Insulin Glargine-YFGN 100 UNIT/ML Pen 10 UNIT SC (21:24)
[2021-08-26 21:46] LABS: Bedside Glucose 272 mg/dL (74-106)
[2021-08-27] VITALS (12 sets, daily range): BP systolic 154–175; BP diastolic 50–59; PULSE 66–84; RESP 12–20; TEMP 36.2–36.4; O2SAT 98–100
[2021-08-27] MEDS: hydrALAZINE 20 MG/ML Vial 10 MG IV (04:21)
[2021-08-27] MEDS: 0.9% Saline Lock 10 ML Syringe IV (04:22)
--- NOTE | 2021-08-27 05:55 | RAD_ITS ---
STUDY: X-RAY CHEST REASON FOR EXAM: Female, 81 years old. chf TECHNIQUE: AP portable. 5:44 AM. COMPARISON: 08/25/2021. FINDINGS: LINES/DEVICES: None. LUNGS: Mixed interstitial and alveolar infiltrates bilaterally not significantly changed. Small bilateral pleural effusions. No consolidation. No pneumothorax. MEDIASTINUM: Aorta atherosclerotic. CARDIAC SILHOUETTE: Enlarged. Stable size and configuration. Sternal wires, valve prosthesis. BONES AND SOFT TISSUES: No acute abnormalities. RAD/Chest 1 View (Portable) IMPRESSION: Mild congestive heart failure. Small pleural effusions. Electronically Signed: Carline Caro MD at 6:30 EDT ,
[2021-08-27] MEDS: metroNIDAZOLE 500 MG/100 ML BAG 100 MG IV ×2 (06:10→13:17)
[2021-08-27 06:49] LABS: Absolute Lymphocyte Count 0.65 X10^3/uL (0.83-4.51); Absolute Neutrophil Count 11.4 X10^3/uL (2.0-7.7); Basophil# 0.01 X10^3/uL; Basophil% 0.1 % (0-1); Hematocrit 29.1 % (37-47); Hemoglobin 9.2 g/dL (12.0-15.0); Lymphocyte # 0.65 X10^3/ul (0.83-4.51); Lymphocyte % 5.1 % (19-41); Mean Corp Hgb Conc 31.6 g/dL (32-36); Mean Corpuscular Hgb 27.7 pg (27.0-32.0); Mean Corpuscular Volume 87.7 fL (81-99); Mean Platelet Vol. 10.6 fl (6.2-12.0); Monocyte# 0.53 X10^3/uL; Monocyte% 4.2 % (0-10); NRBC Flagged by Analyzer 0 % (0-5); Neutrophil # 11.44 X10^3/uL (2.7-7.7); Platelet Count 201 K/mm3 (150-450); RBC Distribution Width CV 14.4 % (11.6-14.6); RBC Distribution Width SD 46.6 fl (35.1-43.9); Red Blood Count 3.32 M/mm3 (4.2-5.4); White Blood Count 12.7 K/mm3 (4.4-11.0)
[2021-08-27] MEDS: Ipratropium/Albuterol Sulfate 3 ML AMPUL.NEB INHALATION ×3 (07:10→15:18)
[2021-08-27 07:16] LABS: Anion Gap 7 (5-15); BUN 30 mg/dL (7-18); BUN/Creat Ratio 20.5 RATIO (10-20); Calcium,Total 9.3 mg/dL (8.5-10.1); Chloride 101 mmol/L (98-107); Creatinine, Serum 1.46 mg/dL (0.55-1.02); EST Glomerular Filtration Rate 37 mL/min (>60); Est Glom Filt Rate - Afr Amer 44 mL/min (>60); Estimated Creatinine Clearance 25.85 ml/min; Glucose 170 mg/dL (74-106); Potassium 3.8 mmol/L (3.5-5.1); Sodium Level 137 mmol/L (136-145)
[2021-08-27] MEDS: Dicyclomine 10 MG Capsule 20 MG PO ×2 (07:59→11:20)
[2021-08-27] MEDS: Insulin Lispro 100 UNIT/ML INSULN.PEN 8 UNIT SC (07:59)
[2021-08-27] MEDS: Levothyroxine 25 MCG TABLET PO (07:59)
[2021-08-27] MEDS: Insulin Lispro 100 UNIT/ML INSULN.PEN SC (08:00)
[2021-08-27 08:11] LABS: Bedside Glucose 160 mg/dL (74-106)
[2021-08-27] MEDS: Ceftriaxone 1 GM/50 ML BAG IV (09:16)
[2021-08-27] MEDS: BRIMONIDINE 0.2% 5ML BOTTLE 1 DRP EACH EYE (09:17)
[2021-08-27] MEDS: Pantoprazole Sodium 40 MG Tablet PO (09:17)
[2021-08-27] MEDS: Metoprolol Tartrate 25 MG Tablet PO (09:17)
[2021-08-27] MEDS: Furosemide 40 MG/4 ML Vial IV (09:17)
[2021-08-27] MEDS: Lisinopril 20 MG Tablet PO (09:17)
[2021-08-27] MEDS: Clopidogrel Bisulfate 75 MG Tablet PO (09:17)
[2021-08-27] MEDS: Enoxaparin 30 MG/0.3 ML Syringe SC (09:17)
[2021-08-27] MEDS: Citalopram 20 MG Tablet PO (09:18)
[2021-08-27] MEDS: Potassium Chloride Oral Tablet 20 MEQ PO (09:18)
[2021-08-27] MEDS: guaiFENesin 600 MG Tablet PO (09:18)
[2021-08-27] MEDS: Ferrous Sulfate 325 MG Tablet PO (09:18)
[2021-08-27] MEDS: ALPRAZolam 0.5 MG Tablet PO (09:18)
--- NOTE | 2021-08-27 10:39 | TREXTCAR_ITS ---
Diet Diet Order/Speech Therapy: 08/26/21 18:14 Diet: Cardiac: Calorie-Controlled Food consistency:: Easy to Chew Liquid Consistency:: Regular/Thin Is pt able to select menu?: No How many daily calories?: 1800 calorie Routine Orders/Code Status O2 Liters per Minute: 2 O2 Frequency: 4 liters when ambulating Routine Lab Work: BMP (on 08/30/21) Code Status: DNRCC-A (no intubation) Therapies Weight Bearing: Full weight bearing Problem/Diagnosis (1) MARGIE (obstructive sleep apnea): Status: Chronic Code(s): G47.33 - Obstructive sleep apnea (adult) (pediatric) Comment: BiPAP 17/13 [id number] when sleeping (2) Acute and chronic respiratory failure with hypoxia: Status: Acute Code(s): J96.21 - Acute and chronic respiratory failure with hypoxia (3) Chronic respiratory failure with hypoxia: Status: Chronic Code(s): J96.11 - Chronic respiratory failure with hypoxia Comment: 2 L/min at all times (4) Congestive heart disease: Status: Acute Code(s): I50.9 - Heart failure, unspecified Comment: intermediate ejection fraction of 45%, acute on chronic (5) Pneumonia: Status: Acute Code(s): J18.9 - Pneumonia, unspecified organism Comment: suspected pneumonia (6) COPD (chronic obstructive pulmonary disease): Status: Chronic Code(s): J44.9 - Chronic obstructive pulmonary disease, unspecified Allergies/Procedures Done in Hospital Allergies Penicillins Allergy (Mild, Verified 08/25/21 15:48) unknown levofloxacin [From Levaquin] Allergy (Verified 08/25/21 15:48) Hives adhesive tape Adverse Reaction (Verified 08/25/21 15:48) Itching amoxicillin [From Augmentin] Adverse Reaction (Verified 08/25/21 15:48) Diarrhea clavulanic acid [From Augmentin] Adverse Reaction (Verified 08/25/21 15:48) Diarrhea lorazepam [From Ativan] Adverse Reaction (Verified 08/25/21 15:48) Other Procedures: None Type of Care/Length of Stay Estimated LOS: Convalescent Care Less Than 30 days Type of Care Needed: Skilled Rehab Potential: Good Prognosis: Good Additional Orders/Day of Discharge H&P will serve as current which was dated: 08/25/21 Day of Discharge: 08/27/21 Dietary and Speech Recommendations Dietitian Recommendations/Changes: will adjust diet to cardiac given recent GI issues, compromised PO intake; will resume CHO controlled diet as PO intake further established. Will consider ONS if PO intake is poor at meals as established. Discharge Plan Admission Admit Date/Time: 08/25/21 20:35 Primary Reason for Your Visit: acute on chronic CHF, pneumonia Attending Provider: Sebastian Carcamo Primary Care Provider: Emanuel Patrick Consulting Providers: Alise Perez Instructions Additional Instructions / Restrictions: 2 liters oxygen at rest, 4 liters oxygen when ambulating continue Bipap as before Discharge Orders/Prescriptions Prescriptions: New alprazolam 0.5 mg Tablet 0.25 - 0.5 mg PO Q12H PRN PRN (Reason: Anxiety) Qty: 5 0RF prednisone 20 mg tablet 20 mg PO BID Qty: 1 0RF Rx Instructions: 20 mg bid for 2 days, then 30 mg daily for 2 days, then 20 mg daily for 2 days, then stop azithromycin [Zithromax] 500 mg tablet 500 mg PO DAILY 3 Days Qty: 3 0RF Rx Instructions: start 08/28/21-use for 3 days Continued Centrum Silver 0.4-300-250 mg-mcg-mcg tablet 1 tab PO DAILY acetaminophen [Tylenol Extra Strength] 500 mg tablet 500 mg PO Q6H PRN (Reason: Pain) albuterol sulfate [Ventolin HFA] 90 mcg/actuation HFA aerosol inhaler 2 puff INHALATION Q4H PRN (Reason: shortness of breath or wheezing) Qty: 18 6RF guaifenesin [Mucinex] 600 mg tablet extended release 12hr 600 mg PO BID ipratropium-albuterol 0.5 mg-3 mg(2.5 mg base)/3 mL solution for nebulization 3 ml inhalation Q4H PRN ondansetron HCl 8 mg tablet 8 mg PO Q8H PRN (Reason: Nausea) insulin glargine 100 UNIT/ML solution 10 unit SQ QHS Label Comments: only give if BGL >150 pantoprazole 40 MG tablet 40 mg PO DAILY Label Comments: GERD insulin aspart U-100 100 UNITS/ML insulin pen 8 units SC BREAKFAST Label Comments: for BGL <150 hold the 8 units latanoprost 1 DROP bottle 1 drp EACH EYE QHS levothyroxine 25 MCG tablet 25 mcg PO DAILY citalopram 20 MG tablet 20 mg PO DAILY loratadine 10 MG tablet 10 mg PO DAILY loperamide 2 mg Tablet 2 mg PO Q4H PRN (Reason: Diarrhea) Rx Instructions: administer after each loose stool until symptoms controlled; do not exceed 8 mg per 24 hrs melatonin 3 mg Tablet 3 mg PO DAILY bisacodyl 10 mg Suppository 10 mg WI DAILY PRN (Reason: Constipation) ferrous sulfate 325 mg (65 mg iron) Tablet brimonidine 0.2 % Drops 1 drp EACH EYE BID lactase [Lactaid] 3,000 unit Tablet Trelegy Ellipta 200-62.5-25 mcg blister with device 1 inh inhalation DAILY Qty: 60 6RF metoprolol tartrate 25 mg tablet 25 mg PO BID Qty: 180 3RF clopidogrel [Plavix] 75 mg tablet 75 mg PO DAILY Qty: 90 3RF atorvastatin 80 mg tablet 80 mg PO QHS Qty: 90 3RF lisinopril 20 mg tablet 20 mg PO DAILY Qty: 90 3RF potassium chloride 20 mEq tablet extended release 20 meq PO BID Qty: 180 3RF Changed furosemide 40 mg tablet 60 mg PO BID Qty: 180 3RF Discontinued alprazolam 0.5 MG tablet 0.25 - 0.5 tab PO Q12H PRN PRN (Reason: Anxiety) Label Comments: anxiety magnesium hydroxide [Milk of Magnesia] 400 mg/5 mL Suspension Referrals / Follow Up: Chiara Zee MD [STAFF PHYSICIAN] - Emanuel Patrick MD [Primary Care Provider] - Disposition Disposition (needs filled in before D/C Order can be placed): Long Term Facility (1) COPD (chronic obstructive pulmonary disease) Qualifiers: COPD type: unspecified COPD Qualified Code(s): J44.9 - Chronic obstructive pulmonary disease, unspecified
[2021-08-27 11:30] LABS: Bedside Glucose 142 mg/dL (74-106)
--- NOTE | 2021-08-27 12:44 | DS.PCM_ITS ---
Providers Date of Admission: 08/25/21 Date of Discharge: 08/27/21 Primary Care Physician: Dr. Emanuel Patrick MD Reason For Visit: COPD EXAC, PNA Diagnosis Discharge Diagnosis (1) MARGIE (obstructive sleep apnea): Status: Chronic Code(s): G47.33 - Obstructive sleep apnea (adult) (pediatric) (2) Acute and chronic respiratory failure with hypoxia: Status: Acute Code(s): J96.21 - Acute and chronic respiratory failure with hypoxia (3) Chronic respiratory failure with hypoxia: Status: Chronic Code(s): J96.11 - Chronic respiratory failure with hypoxia (4) Congestive heart disease: Status: Acute Code(s): I50.9 - Heart failure, unspecified (5) Pneumonia: Status: Acute Code(s): J18.9 - Pneumonia, unspecified organism (6) COPD (chronic obstructive pulmonary disease): Status: Chronic Code(s): J44.9 - Chronic obstructive pulmonary disease, unspecified Qualifiers: COPD type: unspecified COPD Qualified Code(s): J44.9 - Chronic obstructive pulmonary disease, unspecified Plan 1. Diarrhea with nausea and vomiting-resolved at this time, the etiology of her diarrhea is unknown at this timel. #2 community-acquired pneumonia #3 acute on chronic congestive heart failure with intermediate ejection fraction #4 obstructive sleep apnea #5 acute on chronic hypoxemic respiratory failure #6 chronic obstructive pulmonary disease with acute exacerbation #7 coronary artery disease- #8 valvular heart disease #9 hyperlipidemia #10 chronic depression #11 type 2 diabetes #12 hypothyroidism Medications at Discharge Home Medications insulin aspart U-100 100 unit/mL (3 mL) subcutaneous pen 8 units subcut B REAKFAST diabetes 02/19/16 insulin glargine 100 unit/mL subcutaneous solution 10 unit SQ QHS diabetes 02/19/16 pantoprazole 40 mg tablet,delayed release 40 mg PO DAILY GERD 02/19/16 mscboehl-ged-ljuax acid 0.4 mg-lycopene 300 mcg-lutein 250 mcg tablet (Centrum Silver) 1 tab PO DAILY 03/06/18 citalopram 20 mg tablet 20 mg PO DAILY depression 02/26/20 latanoprost 0.005 % eye drops 1 drp EACH EYE QHS glaucoma 02/26/20 levothyroxine 25 mcg tablet 25 mcg PO DAILY thyroid 02/26/20 loratadine 10 mg tablet 10 mg PO DAILY allergied 12/31/20 acetaminophen 500 mg tablet (Tylenol Extra Strength) 500 mg PO Q6H PRN Pain 04/06/20 albuterol sulfate 90 mcg/actuation aerosol inhaler (Ventolin HFA) 2 puff inhalation Q4H PRN shortness of breath or wheezing #18 grams 01/12/21 fluticasone fur. 200 mcg-umeclid 62.5 mcg-vilant 25 mcg inhalat.powder (Trelegy Ellipta) 1 inh inhalation DAILY #60 ea 03/23/21 atorvastatin 80 mg tablet 80 mg PO QHS cholesterol #90 tabs 05/02/21 clopidogrel 75 mg tablet (Plavix) 75 mg PO DAILY #90 tabs 05/02/21 lisinopril 20 mg tablet 20 mg PO DAILY #90 tabs 05/02/21 metoprolol tartrate 25 mg tablet 25 mg PO BID #180 tabs 05/02/21 potassium chloride 20 mEq tablet,extended release 20 meq PO BID #180 tabs 05/02/21 guaifenesin 600 mg tablet, extended release 12 hr (Mucinex) 600 mg PO BID 07/11/21 ipratropium 0.5 mg-albuterol 3 mg (2.5 mg base)/3 mL nebulization soln 3 ml inhalation Q4H PRN 07/11/21 ondansetron HCl 8 mg tablet 8 mg PO Q8H PRN Nausea 07/11/21 bisacodyl 10 mg rectal suppository 10 mg NM DAILY PRN Constipation 08/25/21 brimonidine 0.2 % eye drops 1 drp EACH EYE BID 08/25/21 ferrous sulfate 325 mg (65 mg iron) tablet mg 08/25/21 lactase 3,000 unit tablet (Lactaid) unit 08/25/21 loperamide 2 mg tablet 2 mg PO Q4H PRN Diarrhea 08/25/21 melatonin 3 mg tablet 3 mg PO DAILY 08/25/21 alprazolam 0.5 mg tablet 0.25 - 0.5 mg PO Q12H PRN PRN Anxiety #5 tabs 08/27/21 azithromycin 500 mg tablet (Zithromax) 500 mg PO DAILY 3 days #3 tabs 08/27/21 furosemide 40 mg tablet 60 mg PO BID fluid #180 tabs 07/02/22 prednisone 20 mg tablet 20 mg PO BID #1 TAB 08/27/21 Hospital Course Operations None Procedures None Summary of Care Provided Minutes Spent on Discharge: 33 Hospital Course: In theThis 81-year-old white female urgency room at [facility] after being transported from a local extended care facility at which she is a resident due to nausea, vomiting, and diarrhea. Patient was given IV fluids in the emergency room and labs were obtained, during her time in the emergency room, patient became more short of breath and had audible wheezing, chest x-ray was obtained which showed evidence of bilateral lower lobe infiltrate felt to be pneumonia or pulmonary edema, she was also noted to be an mild congestive heart failure. During the time in the emergency room, patient had to be placed on BiPAP for oxygenation, she was given IV Lasix and aerosol treatments as well as IV Solu-Medrol. Patient was admitted to PCU, her respiratory status improved, s he was treated with IV Lasix, IV Solu-Medrol, and IV antibiotics during her hospital stay. Repeat chest x-ray showed only congestive heart failure which was mild. Patient's respiratory panel was negative for pathogens that were tested, her COVID antigen test was negative. On 08/27/2021, patient was seen and examined: On examination she appeared in good health and spirits, she does not appear to be in any distress. Vital signs as documented. Skin warm and dry and without overt rashes. Neck without JVD, thyroid appears normal, trachea is midline, neck is supple. Lungs clear, normal air movement was noted. Heart exam notable for regular rhythm, normal sounds and absence of murmurs, rubs or gallops. Abdomen unremarkable and without evidence of organomegaly, masses, or abdominal aortic enlargement, bowel sounds are present in all 4 quadrants, no abdominal tenderness was noted. Extremities no nedematous, no cyanosis was noted, no clubbing was noted. Neuro: Cranial nerves II through XII are grossly intact, no focal motor deficits were noted, sensation to light touch and pinprick is intact, motor exam 5/5 throughout. Psych: Patient is alert and oriented x3, she does not appear anxious or depressed, she does not appear agitated. On 08/27/2021, patient was seen and examined and felt to be in stable condition for discharge back to her extended care facility. Weight / BMI Weight Weight: 96.2 kg Body Mass Index (BMI) 37.9 ABG / Lab / Microbiology Data Result Diagrams: 08/27/21 05:55 08/27/21 05:55 Laboratory: Laboratory Results - last 24 hr 08/26/21 16:57: POC Glucose 160 H 08/26/21 21:15: POC Glucose 272 H 08/27/21 05:55: WBC 12.7 H, RBC 3.32 L, Hgb 9.2 L, Hct 29.1 L, MCV 87.7, MCH 27.7, MCHC 31.6 L, RDW Std Deviation 46.6 H, RDW Coeff of [place] 14.4, Plt Count 201, MPV 10.6, Immature Gran % (Auto) 0.600, Neut % (Auto) 90.0 H, Lymph % (Auto) 5.1 L, [place] % (Auto) 4.2, Eos % (Auto) 0.0, Baso % (Auto) 0.1, Absolute Neuts (auto) 11.4 H, Absolute Lymphs (auto) 0.65 L, Nucleated RBC % 0 08/27/21 05:55: Sodium 137, Potassium 3.8, Chloride 101, Carbon Dioxide 29.0, Anion Gap 7, BUN 30 H, Creatinine 1.46 H, Estim Creat Clear Calc 25.85, Est GFR (MDRD) Af Amer 44 L, Est GFR (MDRD) Non-Af 37 L, BUN/Creatinine Ratio 20.5 H, Glucose 170 H, Calcium 9.3 08/27/21 07:55: POC Glucose 160 H 08/27/21 11:16: POC Glucose 142 H Microbiology: Microbiology 08/27/21 11:35 Nasal Secretion SARS-CoV-2 Antigen (Rapid) - Final 08/26/21 14:45 Sputum, Expectorated/Coughed Gram Stain - Final 08/26/21 14:45 Sputum, Expectorated/Coughed Respiratory Culture - Preliminary Appears to be normal respiratory matthew. Further studies to follow. 08/25/21 16:42 Urine, Clean Catch Urine Culture - Final Escherichia coli 08/25/21 20:55 Mucosa - Nasopharyngeal Respiratory Panel (PCR) - Final 08/25/21 16:42 Urine, Clean Catch Legionella Antigen - Final 08/25/21 16:42 Urine, Clean Catch Streptococcus pneumoniae Antigen (M - Final 08/25/21 19:30 Nasal Secretion SARS-CoV-2 & FLU Antigen (Rapid) - Final Radiography Diagnostic Testing: Radiology Impression Chest X-Ray 08/27/21 05:55 IMPRESSION: Mild congestive heart failure. Small pleural effusions. Electronically Signed: Carline Caro MD at 6:30 EDT Reading Location ID and State: [address] [place] [address] Tel , Service support , Meaningful Use Info Meaningful Use Diagnoses (Choose all that apply): CHF CHF RHYS/ARB ordered at discharge?: Yes Documented LVEF (%): 45 Discharge Plan Admission Admit Date/Time: 08/25/21 20:35 Primary Reason for Your Visit: acute on chronic CHF, pneumonia Attending Provider: Sebastian Carcamo Primary Care Provider: Emanuel Patrick Consulting Providers: Alise Perez Instructions Additional Instructions / Restrictions: 2 liters oxygen at rest, 4 liters oxygen when ambulating continue Bipap as before Discharge Orders/Prescriptions Prescriptions: New alprazolam 0.5 mg Tablet 0.25 - 0.5 mg PO Q12H PRN PRN (Reason: Anxiety) Qty: 5 0RF prednisone 20 mg tablet 20 mg PO BID Qty: 1 0RF Rx Instructions: 20 mg bid for 2 days, then 30 mg daily for 2 days, then 20 mg daily for 2 days, then stop azithromycin [Zithromax] 500 mg tablet 500 mg PO DAILY 3 Days Qty: 3 0RF Rx Instructions: start 08/28/21-use for 3 days Continued Centrum Silver 0.4-300-250 mg-mcg-mcg tablet 1 tab PO DAILY acetaminophen [Tylenol Extra Strength] 500 mg tablet 500 mg PO Q6H PRN (Reason: Pain) albuterol sulfate [Ventolin HFA] 90 mcg/actuation HFA aerosol inhaler 2 puff INHALATION Q4H PRN (Reason: shortness of breath or wheezing) Qty: 18 6RF guaifenesin [Mucinex] 600 mg tablet extended release 12hr 600 mg PO BID ipratropium-albuterol 0.5 mg-3 mg(2.5 mg base)/3 mL solution for nebulization 3 ml inhalation Q4H PRN ondansetron HCl 8 mg tablet 8 mg PO Q8H PRN (Reason: Nausea) insulin glargine 100 UNIT/ML solution 10 unit SQ QHS Label Comments: only give if BGL >150 pantoprazole 40 MG tablet 40 mg PO DAILY Label Comments: GERD insulin aspart U-100 100 UNITS/ML insulin pen 8 units SC BREAKFAST Label Comments: for BGL <150 hold the 8 units latanoprost 1 DROP bottle 1 drp EACH EYE QHS levothyroxine 25 MCG tablet 25 mcg PO DAILY citalopram 20 MG tablet 20 mg PO DAILY loratadine 10 MG tablet 10 mg PO DAILY loperamide 2 mg Tablet 2 mg PO Q4H PRN (Reason: Diarrhea) Rx Instructions: administer after each loose stool until symptoms controlled; do not exceed 8 mg per 24 hrs melatonin 3 mg Tablet 3 mg PO DAILY bisacodyl 10 mg Suppository 10 mg NM DAILY PRN (Reason: Constipation) ferrous sulfate 325 mg (65 mg iron) Tablet brimonidine 0.2 % Drops 1 drp EACH EYE BID lactase [Lactaid] 3,000 unit Tablet Trelegy Ellipta 200-62.5-25 mcg blister with device 1 inh inhalation DAILY Qty: 60 6RF metoprolol tartrate 25 mg tablet 25 mg PO BID Qty: 180 3RF clopidogrel [Plavix] 75 mg tablet 75 mg PO DAILY Qty: 90 3RF atorvastatin 80 mg tablet 80 mg PO QHS Qty: 90 3RF lisinopril 20 mg tablet 20 mg PO DAILY Qty: 90 3RF potassium chloride 20 mEq tablet extended release 20 meq PO BID Qty: 180 3RF Changed furosemide 40 mg tablet 60 mg PO BID Qty: 180 3RF Discontinued alprazolam 0.5 MG tablet 0.25 - 0.5 tab PO Q12H PRN PRN (Reason: Anxiety) Label Comments: anxiety magnesium hydroxide [Milk of Magnesia] 400 mg/5 mL Suspension Referrals / Follow Up: Chiara Zee MD [STAFF PHYSICIAN] - Emanuel Patrick MD [Primary Care Provider] - Disposition Disposition (needs filled in before D/C Order can be placed): [facility] Charges/Coding Visit Charges Inpatient E&M: 92622 Disch Hosp
--- NOTE | 2021-08-27 13:57 | NURSING ---
Report called to Wm the nurse at the [facility], will assume care when pt arrives to facility
--- NOTE | 2021-08-27 15:34 | NURSING ---
Report given to [facility] as they will transport [facility]
== END 2021-08-27 15:46 | DRG 291 ==
LOC: ED 20:20 → PCU 21:14
PROVIDERS: Admitting Provider Family Medicine; Emergency Provider Student in an Organized Health Care Education/Training Program; PCP Family Medicine; Visit Provider Internal Medicine
DX: I13.0 Hypertensive heart and chronic kidney disease with heart failure and stage 1 through stage 4 chronic kidney disease, or unspecified chronic kidney disease (principal); J96.21 Acute and chronic respiratory failure with hypoxia; J18.9 Pneumonia, unspecified organism; I50.43 Acute on chronic combined systolic (congestive) and diastolic (congestive) heart failure; J44.0 Chronic obstructive pulmonary disease with (acute) lower respiratory infection; J44.1 Chronic obstructive pulmonary disease with (acute) exacerbation; E11.22 Type 2 diabetes mellitus with diabetic chronic kidney disease; D50.9 Iron deficiency anemia, unspecified; Z79.4 Long term (current) use of insulin; N18.32 Chronic kidney disease, stage 3b; E03.9 Hypothyroidism, unspecified; I25.10 Atherosclerotic heart disease of native coronary artery without angina pectoris; I25.2 Old myocardial infarction; I35.0 Nonrheumatic aortic (valve) stenosis; G47.33 Obstructive sleep apnea (adult) (pediatric); I65.22 Occlusion and stenosis of left carotid artery; K21.9 Gastro-esophageal reflux disease without esophagitis; R19.7 Diarrhea, unspecified; R11.2 Nausea with vomiting, unspecified; Z99.81 Dependence on supplemental oxygen; E66.9 Obesity, unspecified; F32.A Depression, unspecified; Z87.440 Personal history of urinary (tract) infections; Z79.899 Other long term (current) drug therapy; Z79.02 Long term (current) use of antithrombotics/antiplatelets; Z95.1 Presence of aortocoronary bypass graft; Z87.891 Personal history of nicotine dependence; Z87.19 Personal history of other diseases of the digestive system; Z95.2 Presence of prosthetic heart valve
CPT/HCPCS: 36415; 71045; 74177; 80048; 80053; 80061; 81001; 82962; 83690; 83735; 84145; 84443; 84484; 85025; 87070; 87077; 87086; 87088; 87186; 87205; 87426; 87428; 87449; 87633; 87635; 87641; 92610; 94002; 94003; 94640; 94762; 97162; 97166; 97535; 99285; J7030; J7040; J7050; Q9967; A4216; J1940; J2405; U0003; U0005

== ENCOUNTER 2021-12-01 17:29 | Emergency (ER) | payer MEDICARE, OTHER, SELFPAY ==
[2021-12-01 17:31] VITALS: BP 186/48; PULSE 63; RESP 18; TEMP 36.5; O2SAT 100; BMI 43.0
[2021-12-01 18:01] LABS: Absolute Neutrophil Count 4.7 X10^3/uL (2.0-7.7); Basophil# 0.05 X10^3/uL; Basophil% 0.6 % (0-1); Eosinophil# 0.12 X10^3/uL; Eosinophils% 1.5 % (0-5); Hemoglobin 10.2 g/dL (12.0-15.0); Lymphocyte % 27.4 % (19-41); Mean Corp Hgb Conc 31.9 g/dL (32-36); Mean Corpuscular Hgb 28.7 pg (27.0-32.0); Mean Corpuscular Volume 90.1 fL (81-99); Monocyte# 0.91 X10^3/uL; Monocyte% 11.3 % (0-10); NRBC Flagged by Analyzer 0 % (0-5); Neutrophil # 4.72 X10^3/uL (2.7-7.7); Neutrophil % 58.8 % (47-70); Platelet Count 210 K/mm3 (150-450); RBC Distribution Width CV 13.6 % (11.6-14.6); RBC Distribution Width SD 44.7 fl (35.1-43.9); Red Blood Count 3.55 M/mm3 (4.2-5.4)
--- NOTE | 2021-12-01 18:18 | EDS_ITS ---
HPI History of Present Illness Chief Complaint: Abn Labs Narrative Narrative: Patient presents with her daughter because of low hemoglobin/abnormal laboratory value. They state that they received a call from hospice that her hemoglobin was critical at 4.6. Patient denies any current bleeding diathesis. They state that she had history of GI bleeding in April and was transferred to an [place] facility where she had colonoscopy but never found out from where she was bleeding. She entered rehab [facility], but was unable to come home. She has been there ever since. Additionally, they states that they enrolled her in hospice, and that when they received a call from the hospice nurse today, they were told that she could come to the emergency department for a blood transfusion and then be returned back to the [facility] facility. Patient denies any bloody bowel movements, no hematemesis, no bleeding diathesis. No chest pain or shortness of breath. [facility] Medical History Atherosclerosis of coronary artery bypass graft without angina pectoris CAD (coronary artery disease) Carotid artery disease COPD (chronic obstructive pulmonary disease) COPD exacerbation Depression Dyspnea Esophageal abnormality Esophagus, rupture Essential hypertension History of pneumothorax Left bundle branch block (LBBB) Left bundle-branch block, unspecified Left carotid artery stenosis Leg cramps Macular degeneration of left eye Non-ST elevation (NSTEMI) myocardial infarction Nonrheumatic aortic (valve) stenosis MARGIE (obstructive sleep apnea) Paroxysmal supraventricular tachycardia by electrocardiogram (ECG) Pneumonia Sepsis Type 2 diabetes mellitus UTI (urinary tract infection) Home Medications insulin aspart U-100 100 unit/mL (3 mL) subcutaneous pen 8 units subcut BREAKFAST diabetes 02/19/16 [History Last Taken 02/26/20] insulin glargine 100 unit/mL subcutaneous solution 10 unit SQ QHS diabetes 02/19/16 [History Last Taken 02/25/20] pantoprazole 40 mg tablet,delayed release 40 mg PO DAILY GERD 02/19/16 [History Last Taken 02/26/20] lhkddchu-dcq-apiwm acid 0.4 mg-lycopene 300 mcg-lutein 250 mcg tablet (Centrum Silver) 1 tab PO DAILY 03/06/18 [History Last Taken Unknown] citalopram 20 mg tablet 20 mg PO DAILY depression 02/26/20 [History Last Taken 02/26/20] latanoprost 0.005 % eye drops 1 drp EACH EYE QHS glaucoma 02/26/20 [History Last Taken 02/25/20] levothyroxine 25 mcg tablet 25 mcg PO DAILY thyroid 02/26/20 [History Last Taken 02/26/20] loratadine 10 mg tablet 10 mg PO DAILY allergied 02/26/20 [History Last Taken 02/26/20] acetaminophen 500 mg tablet (Tylenol Extra Strength) 500 mg PO Q6H PRN Pain 04/06/20 [History Last Taken Unknown] albuterol sulfate 90 mcg/actuation aerosol inhaler (Ventolin HFA) 2 puff inhalation Q4H PRN shortness of breath or wheezing #18 grams 01/12/21 [Rx Last Taken Unknown] fluticasone fur. 200 mcg-umeclid 62.5 mcg-vilant 25 mcg inhalat.powder (Trelegy Ellipta) 1 inh inhalation DAILY #60 ea 03/23/21 [Rx Last Taken Unknown] atorvastatin 80 mg tablet 80 mg PO QHS cholesterol #90 tabs 05/02/21 [Rx Last Taken Unknown] clopidogrel 75 mg tablet (Plavix) 75 mg PO DAILY #90 tabs 05/02/21 [Rx Last Taken Unknown] lisinopril 20 mg tablet 20 mg PO DAILY #90 tabs 05/02/21 [Rx Last Taken Unknown] metoprolol tartrate 25 mg tablet 25 mg PO BID #180 tabs 05/02/21 [Rx Last Taken Unknown] potassium chloride 20 mEq tablet,extended release 20 meq PO BID #180 tabs 05/02/21 [Rx Last Taken Unknown] guaifenesin 600 mg tablet, extended release 12 hr (Mucinex) 600 mg PO BID 07/11/21 [History Last Taken Unknown] ipratropium 0.5 mg-albuterol 3 mg (2.5 mg base)/3 mL nebulization soln 3 ml inhalation Q4H PRN 07/11/21 [History Last Taken Unknown] ondansetron HCl 8 mg tablet 8 mg PO Q8H PRN Nausea 07/11/21 [History Last Taken Unknown] bisacodyl 10 mg rectal suppository 10 mg NC DAILY PRN Constipation 08/25/21 [History Last Taken Unknown] brimonidine 0.2 % eye drops 1 drp EACH EYE BID 08/25/21 [History Last Taken Unknown] ferrous sulfate 325 mg (65 mg iron) tablet mg 08/25/21 [History Last Taken Unknown] lactase 3,000 unit tablet (Lactaid) unit 08/25/21 [History Last Taken Unknown] loperamide 2 mg tablet 2 mg PO Q4H PRN Diarrhea 08/25/21 [History Last Taken Unknown] melatonin 3 mg tablet 3 mg PO DAILY 08/25/21 [History Last Taken Unknown] alprazolam 0.5 mg tablet 0.25 - 0.5 mg PO Q12H PRN PRN Anxiety #5 tabs 08/27/21 [Rx Last Taken Unknown] azithromycin 500 mg tablet (Zithromax) 500 mg PO DAILY 3 days #3 tabs 08/27/21 [Rx Last Taken Unknown] furosemide 40 mg tablet 60 mg PO BID fluid #180 tabs 08/27/21 [Rx Last Taken Unknown] prednisone 20 mg tablet 20 mg PO BID #1 TAB 08/27/21 [Rx Last Taken Unknown] buspirone 5 mg tablet 5 mg PO BID 10/19/21 [History Last Taken Unknown] dicyclomine 10 mg capsule 10 mg PO TID 10/19/21 [History Last Taken Unknown] Allergy/AdvReac Type Severity Reaction Status Date / Time Penicillins Allergy Mild unknown Verified 12/01/21 17:34 levofloxacin [From Levaquin] Allergy Hives Verified 12/01/21 17:34 adhesive tape AdvReac Itching Verified 12/01/21 17:34 amoxicillin [From Augmentin] AdvReac Diarrhea Verified 12/01/21 17:34 clavulanic acid AdvReac Diarrhea Verified 12/01/21 17:34 [From Augmentin] lorazepam [From Ativan] AdvReac Other Verified 12/01/21 17:34 Family History Mother Heart disease Father Heart disease Father Myocardial infarction Surgical History History of left-sided carotid endarterectomy History of nephrectomy History of tubal ligation 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 HEENT: No sore throat. No neck pain. No loss of vision. No rhinorrhea. Cardiovascular: No chest pain. No palpitations. No pedal edema. Respiratory: No cough, no shortness of breath. Abdominal: No abdominal pain. No nausea. No vomiting. Genitourinary: No dysuria. No hematuria. Musculoskeletal: No myalgias. No arthralgias. Neurologic: No headaches. No dizziness. No lightheadedness. Skin: No rash. No change in color. Psychiatric: No depression. No anxiety. EXAM Physical Exam Narrative Exam Narrative: Afebrile. Vital signs noted. HEENT: Normocephalic. Atraumatic. PERRL, EOMI. Neck soft and supple. No point tenderness or step off. Cardiovascular: Regular rate and rhythm. No murmurs, rubs, or gallops apprec iated. Respiratory: No tachypnea. Lungs clear to auscultation bilaterally. Gastrointestinal: Abdomen soft, nontender, with normoactive bowel sounds. No rebound or guarding. Neurological: Awake. Alert. Nonfocal, nonlateralizing. Skin: No rash. Normal color. No pallor. Musculoskeletal: No pedal edema. Full range of motion extremities. Const Vital Signs: 12/01/21 17:31 Temperature 97.7 F L Temperature Source Temporal Pulse Rate 63 Respiratory Rate 18 Blood Pressure 186/48 H Blood Pressure Mean 94 Pulse Ox 100 Oxygen Delivery Method Nasal Cannula Oxygen Flow Rate (L/min) 2 MDM MDM MDM Narrative Medical decision making narrative: I had a lengthy discussion with the patient and her daughter. She is a hospice patient. Repeat laboratory shows her hemoglobin normal at 10.2. Electrolyte panel shows chronic kidney injury with a creatinine of 1.5, and a BUN of 52. There is a signed DNR comfort care only form on her chart/[facility] form and as she is a hospice patient, I do not feel that any further work-up is indicated and I do not feel transfusion is indicated. She will be returned to the [facility]. And additionally, she will continue her hospice. Patient is in stable condition. Lab Data Attestation: I reviewed the patient's lab results. Labs: Laboratory Results - last 24 hr 12/01/21 12/01/21 17:50 17:50 WBC 8.0 RBC 3.55 L Hgb 10.2 L Hct 32.0 L MCV 90.1 MCH 28.7 MCHC 31.9 L RDW Std Deviation 44.7 H RDW Coeff of [place] 13.6 Plt Count 210 MPV 10.0 Immature Gran % (Auto) 0.400 Neut % (Auto) 58.8 Lymph % (Auto) 27.4 [place] % (Auto) 11.3 H Eos % (Auto) 1.5 Baso % (Auto) 0.6 Absolute Neuts (auto) 4.7 Absolute Lymphs (auto) 2.20 Nucleated RBC % 0 Sodium 138 Potassium 3.9 Chloride 101 Carbon Dioxide 29.0 Anion Gap 8 BUN 52 H Creatinine 1.51 H Estim Creat Clear Calc 21.70 Est GFR (MDRD) Af Amer 43 L Est GFR (MDRD) Non-Af 35 L BUN/Creatinine Ratio 34.4 H Glucose 137 H Calcium 9.0 Discharge Plan Triage Chief Complaint: Abn Labs ED Provider: Neal June Dx/Rx/DC Orders Clinical Impression: Anemia, Hospice care patient, Chronic kidney disease Instructions: ED Anemia, Type Not Specified (Adult) Prescriptions: No Action Centrum Silver 0.4-300-250 mg-mcg-mcg tablet 1 tab PO DAILY acetaminophen [Tylenol Extra Strength] 500 mg tablet 500 mg PO Q6H PRN (Reason: Pain) albuterol sulfate [Ventolin HFA] 90 mcg/actuation HFA aerosol inhaler 2 puff INHALATION Q4H PRN (Reason: shortness of breath or wheezing) Qty: 18 6RF guaifenesin [Mucinex] 600 mg tablet extended release 12hr 600 mg PO BID ipratropium-albuterol 0.5 mg-3 mg(2.5 mg base)/3 mL solution for nebulization 3 ml inhalation Q4H PRN ondansetron HCl 8 mg tablet 8 mg PO Q8H PRN (Reason: Nausea) dicyclomine 10 mg capsule 10 mg PO TID buspirone 5 mg tablet 5 mg PO BID insulin glargine 100 UNIT/ML solution 10 unit SQ QHS Label Comments: only give if BGL >150 pantoprazole 40 MG tablet 40 mg PO DAILY Label Comments: GERD insulin aspart U-100 100 UNITS/ML insulin pen 8 units SC BREAKFAST Label Comments: for BGL <150 hold the 8 units latanoprost 1 DROP bottle 1 drp EACH EYE QHS levothyroxine 25 MCG tablet 25 mcg PO DAILY citalopram 20 MG tablet 20 mg PO DAILY loratadine 10 MG tablet 10 mg PO DAILY loperamide 2 mg Tablet 2 mg PO Q4H PRN (Reason: Diarrhea) Rx Instructions: administer after each loose stool until symptoms controlled; do not exceed 8 mg per 24 hrs melatonin 3 mg Tablet 3 mg PO DAILY bisacodyl 10 mg Suppository 10 mg NC DAILY PRN (Reason: Constipation) ferrous sulfate 325 mg (65 mg iron) Tablet brimonidine 0.2 % Drops 1 drp EACH EYE BID lactase [Lactaid] 3,000 unit Tablet alprazolam 0.5 mg Tablet 0.25 - 0.5 mg PO Q12H PRN PRN (Reason: Anxiety) Qty: 5 0RF prednisone 20 mg tablet 20 mg PO BID Qty: 1 0RF Rx Instructions: 20 mg bid for 2 days, then 30 mg daily for 2 days, then 20 mg daily for 2 days, then stop azithromycin [Zithromax] 500 mg tablet 500 mg PO DAILY 3 Days Qty: 3 0RF Rx Instructions: start 08/28/21-use for 3 days furosemide 40 mg tablet 60 mg PO BID Qty: 180 3RF Trelegy Ellipta 200-62.5-25 mcg blister with device 1 inh inhalation DAILY Qty: 60 6RF metoprolol tartrate 25 mg tablet 25 mg PO BID Qty: 180 3RF clopidogrel [Plavix] 75 mg tablet 75 mg PO DAILY Qty: 90 3RF atorvastatin 80 mg tablet 80 mg PO QHS Qty: 90 3RF lisinopril 20 mg tablet 20 mg PO DAILY Qty: 90 3RF potassium chloride 20 mEq tablet extended release 20 meq PO BID Qty: 180 3RF Primary Care Provider: Emanuel Patrick Referrals: Emanuel Patrick MD [Primary Care Provider] - As soon as possible Disposition Disposition: Long Term Facility Discharge Location: [facility]
[2021-12-01 18:22] LABS: Anion Gap 8 (5-15); BUN 52 mg/dL (7-18); BUN/Creat Ratio 34.4 RATIO (10-20); Chloride 101 mmol/L (98-107); Creatinine, Serum 1.51 mg/dL (0.55-1.02); EST Glomerular Filtration Rate 35 mL/min (>60); Est Glom Filt Rate - Afr Amer 43 mL/min (>60); Glucose 137 mg/dL (74-106); Potassium 3.9 mmol/L (3.5-5.1); Sodium Level 138 mmol/L (136-145)
[2021-12-01 18:38] VITALS: BP 138/77; PULSE 64; RESP 15; O2SAT 95
--- NOTE | 2021-12-01 18:38 | ED.RN ---
HOSPICE CALLED AND GIVEN PTS LAB RESULTS AND NOTIFIED PT IS GOING TO BE GOING HOME
== END 2021-12-01 19:02 | disposition skilled nursing facility (03) ==
PROVIDERS: Emergency Provider Emergency Medicine; PCP Family Medicine; Visit Provider Emergency Medicine
DX: D64.9 Anemia, unspecified (principal); J44.9 Chronic obstructive pulmonary disease, unspecified; E11.22 Type 2 diabetes mellitus with diabetic chronic kidney disease; F32.A Depression, unspecified; I12.9 Hypertensive chronic kidney disease with stage 1 through stage 4 chronic kidney disease, or unspecified chronic kidney disease; N18.9 Chronic kidney disease, unspecified; I25.10 Atherosclerotic heart disease of native coronary artery without angina pectoris; Z51.5 Encounter for palliative care; Z87.891 Personal history of nicotine dependence; Z79.52 Long term (current) use of systemic steroids; Z79.899 Other long term (current) drug therapy
CPT/HCPCS: 80048; 85025; 99285; A4216

== ENCOUNTER → 2022-05-18 | Outpatient (REF) | payer MEDICARE, OTHER, SELFPAY ==
[2022-05-18 09:28] LABS: Color, Urine Yellow (Yellow); Glucose, Dipstick Normal (Normal); Ketone-Dipstick Negative (Negative); Leukocyte Esterase-Dipstick 500 /ul (Negative); Nitrite-Dipstick Negative (Negative); Occult Blood-Urine 10 /ul (Negative); Protein-Dipstick 15 mg/dl (Negative); Specific Gravity, Urine 1.015 (1.002-1.030); Urine Bilirubin Dipstick Negative (Negative); Urine Clarity Cloudy (Clear); Urine Urobilinogen Normal (Normal)
== END ==
LOC: LABSPEC 09:09
PROVIDERS: PCP Family Medicine; Visit Provider Family Medicine
DX: N39.0 Urinary tract infection, site not specified (principal)
CPT/HCPCS: 81002; 87077; 87086; 87088; 87186